=== PATIENT | female | born 1970 | race Caucasian/White ===

== ENCOUNTER 2016-09-23 06:00 | Outpatient (RCR) | payer OTHER ==
[2016-09-10 13:03] LABS: BASOPHILS % (AUTO) 1 % (0-10); EOSINOPHILS # (AUTO) 0.2 10^3/uL (0.0-0.3); EOSINOPHILS % (AUTO) 3 % (0-10); LYMPHOCYTES # (AUTO) 1.9 X 10^3 (1.0-4.0); LYMPHOCYTES % (AUTO) 28 % (12-44); MEAN CORPUSCULAR HEMOGLOBIN 30 PG (25-34); MEAN CORPUSCULAR HGB CONC 34 G/DL (32-36); MEAN CORPUSCULAR VOLUME 88 FL (80-99); MEAN PLATELET VOLUME 10.1 FL (7.4-10.4); MONOCYTES # (AUTO) 0.7 X 10^3 (0.0-1.0); MONOCYTES % (AUTO) 10 % (0-12); NEUTROPHILS % (AUTO) 59 % (42-75); PLATELET COUNT 269 10^3/uL (130-400); RED BLOOD COUNT 5.02 10^6/uL (4.35-5.85); RED CELL DISTRIBUTION WIDTH 13.3 % (10.0-14.5); WHITE BLOOD COUNT 6.9 10^3/uL (4.3-11.0)
[2016-09-10 13:25] LABS: ALBUMIN 4.2 G/DL (3.2-4.5); BILIRUBIN,TOTAL 0.7 MG/DL (0.1-1.0); CALCIUM 9.6 MG/DL (8.5-10.1); CREATININE SERUM 1.08 MG/DL (0.60-1.30); POTASSIUM 3.9 MMOL/L (3.6-5.0); TOTAL PROTEIN 7.5 G/DL (6.4-8.2)
[2016-09-10 13:31] LABS: ERYTHROCYTE SEDIMENTATION RATE 21 MM/HR (0-20)
== END 2016-12-09 | disposition home or self-care (01) ==
LOC: LAB 06:00
PROVIDERS: ATTEND Internal Medicine
DX: R19.7 Diarrhea, unspecified (principal)
CPT/HCPCS: 36415; 80053; 82274; 85025; 85652; 87045; 87046; 87177; 89055

== ENCOUNTER → 2016-10-14 | Outpatient (CLI) | payer OTHER ==
--- NOTE | 2016-10-14 15:42 | Diagnostic Imaging Report ---
PROCEDURE: CT abdomen without contrast. TECHNIQUE: Multiple contiguous axial images were obtained through the abdomen without the use of intravenous contrast. INDICATION: Abdominal pain. FINDINGS: The lung bases demonstrate no significant abnormality. There is diffuse hepatic steatosis. Cholecystectomy clips are noted. The spleen is not enlarged. The adrenals and the pancreas appear unremarkable for an unenhanced exam. The kidneys demonstrate no stone or hydronephrosis. The abdominal aorta is normal in caliber. No para-aortic significantly enlarged lymph node is seen. Nonspecific minimally enlarged mesenteric lymph nodes are noted. There is slight stranding in the mesentery also seen. The appendix visualized portion is normal. The tip of the appendix is projecting into the pelvis and is not seen on this exam. No fluid collection in the abdomen identified. There is moderate amount of fecal material seen in the right colon. The osseous structures demonstrate no significant abnormality. IMPRESSION: Minimal mesenteric taryn enlargement and stranding in the small bowel mesentery in the upper abdomen. This could relate to an underlying enteritis or mesenteritis. Dictated by: Dictated on workstation # [id number]
== END ==
LOC: RAD 15:09
PROVIDERS: ATTEND Nurse Practitioner Family
DX: R10.9 Unspecified abdominal pain (principal); R74.8 Abnormal levels of other serum enzymes
CPT/HCPCS: 74150

== ENCOUNTER → 2016-10-16 | Outpatient (CLI) | payer OTHER ==
[2016-10-16 07:40] LABS: MEAN PLATELET VOLUME 10.1 FL (7.4-10.4); RED BLOOD COUNT 4.6 10^6/uL (4.35-5.85); RED CELL DISTRIBUTION WIDTH 13.2 % (10.0-14.5); WHITE BLOOD COUNT 11.2 10^3/uL (4.3-11.0)
[2016-10-16 07:59] LABS: BILIRUBIN,TOTAL 0.5 MG/DL (0.1-1.0); CALCIUM 9.3 MG/DL (8.5-10.1); POTASSIUM 3.9 MMOL/L (3.6-5.0); TOTAL PROTEIN 7.2 G/DL (6.4-8.2)
== END ==
LOC: LAB 07:19
PROVIDERS: ATTEND Nurse Practitioner Family
DX: R10.9 Unspecified abdominal pain (principal); R74.8 Abnormal levels of other serum enzymes
CPT/HCPCS: 36415; 80053; 85027

== ENCOUNTER 2017-07-15 21:00 | Emergency (ER) | payer OTHER ==
[~2017-07-15] VITALS: Ht 172.7 cm; Wt 110.2 kg
[2017-07-15] MEDS ORDERED: RX-HYDROXYZINE PAMOATE 25 MG CAP #4 PO STA (21:22)
--- NOTE | 2017-07-15 21:25 | ED Integumentary General ---
General Chief Complaint: Bite-Animal/Human/Insect Stated Complaint: SPIDER BITE Nursing Triage Note: PT TO ED 5 W/ FOR C/O POSS SPIDER BITE TO LT SHOULDER. REPORTS WAS SEEN AT [facility] THIS AM FOR SAME C/O BUT DENIES IMPROVEMENT. History of Present Illness Time seen by provider: 21:20 Initial Comments Patient has small puncture site to the left anterior chest, proximal to the shoulder. The area was marked earlier today when she was evaluated at the [facility], the erythema has not enlarged. Trace central area of induration with no fluctuance noted. She has been using lidocaine patches, Benadryl, ice. With no improvement in the pruritus. She was started on Bactrim DS today. Timing/Duration: this morning Location: torso Possible Cause: insect bite Modifying Factors: improves with antihistamine, improves with other (Ice) Associated Symptoms: denies symptoms Allergies and Home Medications Allergies Coded Allergies: No Known Drug Allergies (Unverified , 11/18/15) Constitutional: no symptoms reported, see HPI Skin: see HPI, lesions, pruritus All Other Systems Reviewed Negative Unless Noted: Yes Past Ggqnvkd-Ldwzny-Iadyin Hx Patient Social History Alcohol Use: Denies Use Recreational Drug Use: No Smoking Status: Never a Smoker Recent Foreign Travel: No Contact w/Someone Who Travel: No Recent Infectious Disease Expo: No Recent Hopitalizations: No Physical Abuse: No Sexual Abuse: No Mistreated: No Fear: No Surgeries History of Surgeries: Yes Surgeries: Gallbladder Respiratory History of Respiratory Disorde: No Cardiovascular 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) Cardiac Disorders: Hypertension Genitourinary History of Genitourinary Disor: No Gastrointestinal History of Gastrointestinal Di: No Musculoskeletal History of Musculoskeletal Dis: No Endocrine History of Endocrine Disorders: No HEENT History of HEENT Disorders: No Cancer History of Cancer: No Psychosocial History of Psychiatric Problem: Yes Behavioral Health Disorders: Depression Suicide Risk Score: 0 Integumentary History of Skin or Integumenta: No Reviewed Nursing Assessment Reviewed/Agree w Nursing PMH: Yes Physical Exam Vital Signs Vital Sign - Last 12Hours 07/15/17 21:03 Temp 98.4 Pulse 88 Resp 20 B/P (MAP) 152/96 Pulse Ox 99 O2 Delivery Room Air Capillary Refill : Less Than 3 Seconds General Appearance: WD/WN, no apparent distress Neck: full range of motion, normal inspection, No lymphadenopathy (R), No lymphadenopathy (L) Cardiovascular: normal peripheral pulses, regular rate, rhythm Respiratory: chest non-tender, lungs clear Skin: normal color, warm/dry, other (small puncture to anterior chest, left side. Mild erythema. Marked pruritus. No fluctuance at Center, trace induration. ) Progress/Results/Core Measures Results/Orders My Orders Orders - SANA MG Hydroxyzine Oral (Vistaril Capsule) (07/15/17 21:30) Dexamethasone Injection (Decadron Inject (07/15/17 21:30) Rx-Hydroxyzine Pamoate (Rx-Vistaril) (07/15/17 21:22) Medications Given in ED Current Medications Medications Dose Ordered Sig/Kristan Route Start Time Stop Time Status Last Admin Dose Admin Dexamethasone Sodium Phosphate 10 mg ONCE ONCE IV 07/15/17 21:30 07/15/17 21:31 DC 07/15/17 21:31 10 MG Hydroxyzine Pamoate 25 mg ONCE ONCE PO 07/15/17 21:30 07/15/17 21:31 DC 07/15/17 21:30 25 MG Vital Signs/I&O Vital Sign - Last 12Hours 07/15/17 21:03 Temp 98.4 Pulse 88 Resp 20 B/P (MAP) 152/96 Pulse Ox 99 O2 Delivery Room Air Blood Pressure Mean: 114 Departure Impression Impression: Primary Impression: Insect bite Qualified Codes: W57.XXXA - Bitten or stung by nonvenomous insect and other nonvenomous arthropods, initial encounter Additional Impression: Pruritus Disposition: 01 HOME, SELF-CARE Condition: Improved Departure-Patient Inst. Decision time for Depature: 21:20 Referrals: CHARLIE PAZ DO (PCP/Family) Primary Care Physician Patient Instructions: Insect Bites and Stings (DC) Add. Discharge Instructions: Continue to use ice packs to right anterior chest 20 minutes every 2-3 hours. Try Aveeno soap, make 2 small paste and apply to area. Try apple cider vinegar with the mother, saturate cotton ball and apply to area of itching for 2-3 minutes. Use hydroxyzine for severe itching. Follow-up at the [facility] tomorrow if symptoms continue. Return to emergency department for worsening of symptoms. All discharge instructions reviewed with patient and/or family. Voiced understanding. Copy Copies To 1: TYRA ROMERO MD, AMY ARNP Jul 15, 2017 21:25
[2017-07-15] MEDS ORDERED: DEXAMETHASONE 10 MG/ML (DECADRON) 1 ML VIAL IV ONE (21:30)
[2017-07-15] MEDS ORDERED: hydrOXYzine (VISTARIL) 25 MG CAP PO ONE (21:30)
[2017-07-15 21:43] VITALS: BP 144/88
== END 2017-07-15 21:43 | disposition home or self-care (01) ==
LOC: EDUNIT# 21:00 → ER 21:01
DX: S40.262A Insect bite (nonvenomous) of left shoulder, initial encounter (principal); L29.9 Pruritus, unspecified; F32.9 Major depressive disorder, single episode, unspecified; I10 Essential (primary) hypertension; W57.XXXA Bitten or stung by nonvenomous insect and other nonvenomous arthropods, initial encounter
CPT/HCPCS: 99284

== ENCOUNTER 2018-09-13 14:47 | Emergency (ER) | payer OTHER ==
[~2018-09-13] VITALS: Ht 172.7 cm; Wt 108.9 kg
[2018-09-13] MEDS ORDERED: TRIA1CAP4 (15:07)
--- NOTE | 2018-09-13 15:13 | ED General ---
General Chief Complaint: General Problems/Pain Stated Complaint: WANTS TESTED FOR CARBON MONOXIDE Nursing Triage Note: ARRIVED VIA AMB TO TRIAGE ROOM. STATES SHE WOULD LIKE TESTED FOR CARBON MONOXIDE POISONING. STATES FOR OVER A WEEK SHE AND HER AND CHILD HAVE BEEN SICK WITH N/V/HEADACHE AND JUST NOT FEELING WELL. STATES WHEN THEY LEAVE THE HOME THEY FEEL BETTER. Nursing Sepsis Screen: No Definite Risk Source of Information: Patient Exam Limitations: No Limitations History of Present Illness Date Seen by Provider: Sep 13, 2018 Time Seen by Provider: 14:57 Initial Comments This 47-year-old woman presents to the emergency room with 7-10 days of symptoms that make her suspicious for carbon monoxide poisoning. She describes headache, confusion, muscle weakness, cramping, and just generally not feeling well. She states these symptoms improve after she or her family members leave the house. She reports her son has additionally had some nausea and diarrhea which is unusual for him. They recently had one of their propane heaters break. They have therefore been using a propane gas fireplace for heat. This fireplace is not vented to the outside. They do not have a working carbon monoxide detector at this time. She denies because her has had vasectomy. Allergies and Home Medications Allergies Coded Allergies: No Known Drug Allergies (Unverified , 11/18/15) Home Medications Cephalexin 500 Mg Capsule, 500 MG PO QID Prescribed by: DAVID WHITNEY on 09/13/18 1632 Ondansetron 4 Mg Tab.rapdis, 4 MG PO Q4H PRN for NAUSEA/VOMITING Prescribed by: DAVID WHITNEY on 09/13/18 1632 Patient Home Medication List Home Medication List Reviewed: Yes Review of Systems Review of Systems Constitutional: see HPI EENTM: no symptoms reported Respiratory: no symptoms reported Cardiovascular: no symptoms reported Gastrointestinal: see HPI Genitourinary: no symptoms reported Musculoskeletal: see HPI Skin: no symptoms reported Psychiatric/Neurological: See HPI Hematologic/Lymphatic: No Symptoms Reported Immunological/Allergic: no symptoms reported Past Rbrhrzl-Igpqlg-Bngfar Hx Patient Social History Alcohol Use: Denies Use Recreational Drug Use: No Smoking Status: Never a Smoker Recent Foreign Travel: No Contact w/Someone Who Travel: No Recent Infectious Disease Expo: No Recent Hopitalizations: No Past Medical History Surgeries: Yes Gallbladder Respiratory: No Cardiac: Yes (STRESS/CAFFIENE INDUCED BYGEMINY/TRIGEMINY) Hypertension Neurological: No : No Genitourinary: No Gastrointestinal: No Musculoskeletal: No Endocrine: No HEENT: No Cancer: No Psychosocial: Yes Depression Integumentary: No Physical Exam Vital Signs Vital Signs - First Documented 09/13/18 14:50 Temp 99.1 Pulse 104 Resp 16 B/P (MAP) 147/82 (103) Pulse Ox 100 O2 Delivery Room Air Capillary Refill : Less Than 3 Seconds Height, Weight, BMI Height: 5'8.00" Weight: 240lbs. oz. 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85 10^6/uL Hemoglobin 14.7 11.5-16.0 G/DL Hematocrit 44 35-52 % Mean Corpuscular Volume 88 80-99 FL Mean Corpuscular Hemoglobin 30 25-34 PG Mean Corpuscular Hemoglobin Concent 34 32-36 G/DL Red Cell Distribution Width 12.9 10.0-14.5 % Platelet Count 247 130-400 10^3/uL Mean Platelet Volume 10.1 7.4-10.4 FL Neutrophils (%) (Auto) 55 42-75 % Lymphocytes (%) (Auto) 30 12-44 % Monocytes (%) (Auto) 9 0-12 % Eosinophils (%) (Auto) 4 0-10 % Basophils (%) (Auto) 2 0-10 % Neutrophils # (Auto) 4.2 1.8-7.8 X 10^3 Lymphocytes # (Auto) 2.3 1.0-4.0 X 10^3 Monocytes # (Auto) 0.7 0.0-1.0 X 10^3 Eosinophils # (Auto) 0.3 0.0-0.3 10^3/uL Basophils # (Auto) 0.1 0.0-0.1 10^3/uL Carboxyhemoglobin 2.3 0.5-2.5 % Sodium Level 136 135-145 MMOL/L Potassium Level 3.5 L 3.6-5.0 MMOL/L Chloride Level 99 98-107 MMOL/L Carbon Dioxide Level 26 21-32 MMOL/L Anion Gap 11 5-14 MMOL/L Blood Urea Nitrogen 14 7-18 MG/DL Creatinine 1.26 0.60-1.30 MG/DL Estimat Glomerular Filtration Rate 46 BUN/Creatinine Ratio 11 Glucose Level 111 H 70-105 MG/DL Calcium Level 9.7 8.5-10.1 MG/DL Corrected Calcium 9.5 8.5-10.1 MG/DL Magnesium Level 2.3 1.8-2.4 MG/DL Total Bilirubin 0.4 0.1-1.0 MG/DL Aspartate Amino Transf (AST/SGOT) 34 5-34 U/L Alanine Aminotransferase (ALT/SGPT) 48 0-55 U/L Alkaline Phosphatase 57 40-136 U/L Total Protein 8.0 6.4-8.2 GM/DL Albumin 4.3 3.2-4.5 GM/DL TSH [place] Testing 3.52 0.35-4.94 UIU/ML Serum Test, Qualitative NEGATIVE NEGATIVE Urine Color YELLOW Urine Clarity SLIGHTLY CLOUDY Urine pH 6 5-9 Urine Specific Barnard 1.020 1.016-1.022 Urine Protein 1+ H NEGATIVE Urine Glucose (UA) NEGATIVE NEGATIVE Urine Ketones NEGATIVE NEGATIVE Urine Nitrite NEGATIVE NEGATIVE Urine Bilirubin NEGATIVE NEGATIVE Urine Urobilinogen NORMAL NORMAL MG/DL Urine Leukocyte Esterase 3+ H NEGATIVE Urine RBC (Auto) 4+ H NEGATIVE Urine RBC 5-10 H /HPF Urine WBC 25-50 H /HPF Urine Squamous Epithelial Cells >50 H /HPF Urine Renal Epithelial Cells 0-2 /HPF Urine Crystals NONE /LPF Urine Bacteria MODERATE H /HPF Urine Casts NONE /LPF Urine Mucus NEGATIVE /LPF Urine Culture Indicated YES My Orders Orders - DAVID JAMES MD Carboxyhemoglobin (09/13/18 14:54) Cbc With Automated Diff (09/13/18 15:05) Comprehensive Metabolic Panel (09/13/18 15:05) Magnesium (09/13/18 15:05) Thyroid Analyzer (09/13/18 15:05) Ua Culture If Indicated (09/13/18 15:05) Hcg,Qualitative Serum (09/13/18 15:05) Urine Culture (09/13/18 15:17) Vital Signs/I&O 09/13/18 14:50 Temp 99.1 Pulse 104 Resp 16 B/P (MAP) 147/82 (103) Pulse Ox 100 O2 Delivery Room Air Capillary Refill : Less Than 3 Seconds Blood Pressure Mean: 103 Progress Note : Progress Note Workup was unremarkable except you may suggested urinary tract infection. Keflex and Zofran were prescribed. Patient was advised to have her home checked for carbon monoxide. She is also advised to avoid using improperly vented combustion sources for heat. Departure Impression Primary Impression: Urinary tract infection Qualified Codes: N39.0 - Urinary tract infection, site not specified Additional Impressions: Fatigue Qualified Codes: R53.83 - Other fatigue Headache Qualified Codes: R51 - Headache Disposition: 01 HOME, SELF-CARE Condition: Improved Departure-Patient Inst. Decision time for Depature: 16:31 Referrals: CHARLIE PAZ DO (PCP/Family) Primary Care Physician Patient Instructions: Urinary Tract Infection, Adult (DC) Add. Discharge Instructions: Drink plenty of clear liquids. Complete your antibiotics as prescribed. Follow-up with your primary care provider if not improving over the next couple of days. Return to care if symptoms are worsening. You may use Zofran (ondansetron) as prescribed if nausea continues to be a problem. Review urine culture by contacting your primary care provider or the ER after 48 hours. All discharge instructions reviewed with patient and/or family. Voiced understanding. Scripts Ondansetron (Ondansetron Odt) 4 Mg Tab.rapdis 4 MG PO Q4H PRN for NAUSEA/VOMITING, #10 TAB Prov: DAVID JAMES MD 09/13/18 Cephalexin (Keflex) 500 Mg Capsule 500 MG PO QID, #20 CAP Prov: DAVID JAMES MD 09/13/18 Copy Copies To 1: CHARLIE PAZ JOSHUA T MD Sep 13, 2018 15:13
[2018-09-13 15:20] LABS: BASOPHILS # (AUTO) 0.1 10^3/uL (0.0-0.1); BASOPHILS % (AUTO) 2 % (0-10); EOSINOPHILS # (AUTO) 0.3 10^3/uL (0.0-0.3); EOSINOPHILS % (AUTO) 4 % (0-10); HEMATOCRIT 44 % (35-52); HEMOGLOBIN 14.7 G/DL (11.5-16.0); LYMPHOCYTES # (AUTO) 2.3 X 10^3 (1.0-4.0); LYMPHOCYTES % (AUTO) 30 % (12-44); MEAN CORPUSCULAR HEMOGLOBIN 30 PG (25-34); MEAN CORPUSCULAR HGB CONC 34 G/DL (32-36); MEAN CORPUSCULAR VOLUME 88 FL (80-99); MEAN PLATELET VOLUME 10.1 FL (7.4-10.4); MONOCYTES # (AUTO) 0.7 X 10^3 (0.0-1.0); MONOCYTES % (AUTO) 9 % (0-12); NEUTROPHILS # (AUTO) 4.2 X 10^3 (1.8-7.8); NEUTROPHILS % (AUTO) 55 % (42-75); PLATELET COUNT 247 10^3/uL (130-400); RED BLOOD COUNT 4.96 10^6/uL (4.35-5.85); RED CELL DISTRIBUTION WIDTH 12.9 % (10.0-14.5); WHITE BLOOD COUNT 7.6 10^3/uL (4.3-11.0)
[2018-09-13 15:24] LABS: BILIRUBIN,URINE NEGATIVE (NEGATIVE); CLARITY,URINE SLIGHTLY CLOUDY; COLOR,URINE YELLOW; GLUCOSE, URINE (UA) NEGATIVE (NEGATIVE); KETONES,URINE NEGATIVE (NEGATIVE); LEUKOCYTE ESTERASE ,URINE 3+ (NEGATIVE); NITRITE,URINE NEGATIVE (NEGATIVE); PH,URINE 6 (5-9); PROTEIN,URINE 1+ (NEGATIVE); UROBILINOGEN,URINE NORMAL (NORMAL)
[2018-09-13 15:34] LABS: BACTERIA,URINE MODERATE /HPF; RENAL EPITHELIAL CELLS,URINE 0-2 /HPF; SQUAMOUS EPITHELIAL CELL,UR >50 /HPF; WBC,URINE 25-50 /HPF
[2018-09-13 15:55] LABS: ALBUMIN 4.3 GM/DL (3.2-4.5); BILIRUBIN,TOTAL 0.4 MG/DL (0.1-1.0); CALCIUM 9.7 MG/DL (8.5-10.1); CREATININE SERUM 1.26 MG/DL (0.60-1.30); MAGNESIUM 2.3 MG/DL (1.8-2.4); POTASSIUM 3.5 MMOL/L (3.6-5.0)
[2018-09-13 16:15] LABS: TSH (THYROID ANALYZER) 3.52 UIU/ML (0.35-4.94)
[2018-09-13] MEDS ORDERED: ONDA4TAB11 PO (16:32)
[2018-09-13] MEDS ORDERED: CEPH-507 PO (16:32)
[2018-09-13 16:47] VITALS: BP 156/99
--- OUTSIDE RECORDS SUMMARY | 2018-09-14 07:44 | XMS REPORT | Continuity of Care Document ---
Author Author [facility] Organization [facility] Address Unknown Phone Unavailable Allergies Active Description Code Type Severity Reaction Onset Reported/Identified Relationship to Patient Clinical Status Yes No Known Drug Allergies [id number] Drug Allergy Unknown N/A 11/18/2015 Medications There is no data. Problems Date Dx Coded Attending Type Code Diagnosis Diagnosed By 06/20/2014 MARLA LINDSAY Ot 724.1 PAIN IN THORACIC SPINE 06/20/2014 MARLA LINDSAY Ot V57.1 PHYSICAL THERAPY NEC 02/13/2015 YOUNG PAZ L EDUCATION SUPERVISOR Ot 780.79 03/02/2015 TORO PAZRICIA L EDUCATION SUPERVISOR Ot 780.79 03/02/2015 JACKSON YOUNG L EDUCATION SUPERVISOR Ot 780.79 10/18/2015 PAZ, YOUNG L EDUCATION SUPERVISOR Ot 780.79 10/18/2015 PAZ, YOUNG L EDUCATION SUPERVISOR Ot 780.79 11/18/2015 PAZ, YOUNG L EDUCATION SUPERVISOR Ot 780.79 11/18/2015 PAZ, YOUNG L EDUCATION SUPERVISOR Ot 780.79 01/28/2016 JACKSON YOUNG L EDUCATION SUPERVISOR Ot R32 UNSPECIFIED URINARY INCONTINENCE 01/28/2016 TORO PAZRICIA L EDUCATION SUPERVISOR Ot Z12.31 ENCNTR SCREEN MAMMOGRAM FOR MALIGNANT NE 08/10/2016 TORO PAZRICIA L EDUCATION SUPERVISOR Ot 780.79 OTH MALAISE FATIGUE 08/10/2016 PAZ, YOUNG L EDUCATION SUPERVISOR Ot 780.79 OTH MALAISE FATIGUE 08/10/2016 TORO PAZRICIA L EDUCATION SUPERVISOR Ot R32 UNSPECIFIED URINARY INCONTINENCE 08/10/2016 TORO PAZRICIA L EDUCATION SUPERVISOR Ot Z12.31 ENCNTR SCREEN MAMMOGRAM FOR MALIGNANT NE 08/19/2016 TORO PAZRICIA L EDUCATION SUPERVISOR Ot 780.79 OTH MALAISE FATIGUE 08/19/2016 TORO PAZRICIA L EDUCATION SUPERVISOR Ot 780.79 OTH MALAISE FATIGUE 08/19/2016 PAZ, YOUNG L EDUCATION SUPERVISOR Ot R32 UNSPECIFIED URINARY INCONTINENCE 08/19/2016 TORO PAZRICIA L EDUCATION SUPERVISOR Ot Z12.31 ENCNTR SCREEN MAMMOGRAM FOR MALIGNANT NE 09/10/2016 PAZVIRGIL PERSAUDIA L EDUCATION SUPERVISOR Ot 780.79 OTH MALAISE FATIGUE 09/10/2016 PAZ, YOUNG L EDUCATION SUPERVISOR Ot 780.79 OTH MALAISE FATIGUE 09/10/2016 PAZVIRGIL PERSAUDIA L EDUCATION SUPERVISOR Ot R32 UNSPECIFIED URINARY INCONTINENCE 09/10/2016 PAZ, YOUNG L EDUCATION SUPERVISOR Ot Z12.31 ENCNTR SCREEN MAMMOGRAM FOR MALIGNANT NE 09/11/2016 CHARLIE PAZ DO Ot R19.7 DIARRHEA, UNSPECIFIED 09/24/2016 CHARLIE PAZ DO Ot K59.00 CONSTIPATION, UNSPECIFIED 10/14/2016 VIRGIL PAZIA L EDUCATION SUPERVISOR Ot 780.79 OTH MALAISE FATIGUE 10/14/2016 VIRGIL PAZIA L EDUCATION SUPERVISOR Ot 780.79 OTH MALAISE FATIGUE 10/14/2016 VIRGIL PAZIA L EDUCATION SUPERVISOR Ot R32 UNSPECIFIED URINARY INCONTINENCE 10/14/2016 VIRGIL PAZIA L EDUCATION SUPERVISOR Ot Z12.31 ENCNTR SCREEN MAMMOGRAM FOR MALIGNANT NE 10/14/2016 CHARLIE PAZ DO Ot R19.7 DIARRHEA, UNSPECIFIED 10/14/2016 CHARLIE PAZ DO Ot K59.00 CONSTIPATION, UNSPECIFIED 10/14/2016 VIRGIL PAZIA L EDUCATION SUPERVISOR Ot 780.79 OTH MALAISE FATIGUE 10/14/2016 TORO PAZRICIA L EDUCATION SUPERVISOR Ot 780.79 OTH MALAISE FATIGUE 10/14/2016 TORO PAZRICIA L EDUCATION SUPERVISOR Ot R32 UNSPECIFIED URINARY INCONTINENCE 10/14/2016 TORO PAZRICIA L EDUCATION SUPERVISOR Ot Z12.31 ENCNTR SCREEN MAMMOGRAM FOR MALIGNANT NE 10/14/2016 CHARLIE PAZ DO Ot R19.7 DIARRHEA, UNSPECIFIED 10/14/2016 CHARLIE PAZ DO Ot K59.00 CONSTIPATION, UNSPECIFIED 10/15/2016 VIRGIL PAZIA Tab EDUCATION SUPERVISOR Ot R10.9 UNSPECIFIED ABDOMINAL PAIN 10/15/2016 YOUNG PAZ EDUCATION SUPERVISOR Ot R74.8 ABNORMAL LEVELS OF OTHER SERUM ENZYMES 10/15/2016 TORO PAZRICIA L EDUCATION SUPERVISOR Ot R10.9 UNSPECIFIED ABDOMINAL PAIN 10/15/2016 TORO PAZRICIA Tab EDUCATION SUPERVISOR Ot R74.8 ABNORMAL LEVELS OF OTHER SERUM ENZYMES 11/10/2016 YOUNG PAZ L EDUCATION SUPERVISOR Ot R10.9 UNSPECIFIED ABDOMINAL PAIN 11/10/2016 VIRGIL PAZIA L EDUCATION SUPERVISOR Ot R74.8 ABNORMAL LEVELS OF OTHER SERUM ENZYMES 12/09/2016 CHARLIE PAZ DO Ot R19.7 DIARRHEA, UNSPECIFIED 01/18/2017 YOUNG PAZ L EDUCATION SUPERVISOR Ot 780.79 OTH MALAISE FATIGUE 01/18/2017 TORO PAZRICIA L EDUCATION SUPERVISOR Ot 780.79 OTH MALAISE FATIGUE 01/18/2017 VIRGIL PAZIA L EDUCATION SUPERVISOR Ot R32 UNSPECIFIED URINARY INCONTINENCE 01/18/2017 VIRGIL PAZIA L EDUCATION SUPERVISOR Ot Z12.31 ENCNTR SCREEN MAMMOGRAM FOR MALIGNANT NE 01/18/2017 CHARLIE PAZ DO Ot K59.00 CONSTIPATION, UNSPECIFIED 01/18/2017 YOUNG PAZ EDUCATION SUPERVISOR Ot R10.9 UNSPECIFIED ABDOMINAL PAIN 01/18/2017 YOUNG PAZ EDUCATION SUPERVISOR Ot R74.8 ABNORMAL LEVELS OF OTHER SERUM ENZYMES 01/18/2017 YOUNG PAZ L EDUCATION SUPERVISOR Ot R10.9 UNSPECIFIED ABDOMINAL PAIN 01/18/2017 VIRGIL PAZIA L EDUCATION SUPERVISOR Ot R74.8 ABNORMAL LEVELS OF OTHER SERUM ENZYMES 01/18/2017 CHARLIE PAZ DO Ot R19.7 DIARRHEA, UNSPECIFIED 07/15/2017 VIRGIL PAZIA L EDUCATION SUPERVISOR Ot 780.79 OTH MALAISE FATIGUE 07/15/2017 VIRGIL PAZIA L EDUCATION SUPERVISOR Ot 780.79 OTH MALAISE FATIGUE 07/15/2017 VIRGIL PAZIA L EDUCATION SUPERVISOR Ot R32 UNSPECIFIED URINARY INCONTINENCE 07/15/2017 VIRGIL PAZIA L EDUCATION SUPERVISOR Ot Z12.31 ENCNTR SCREEN MAMMOGRAM FOR MALIGNANT NE 07/15/2017 CHARLIE PAZ DO Ot K59.00 CONSTIPATION, UNSPECIFIED 07/15/2017 YOUNG APZ EDUCATION SUPERVISOR Ot R10.9 UNSPECIFIED ABDOMINAL PAIN 07/15/2017 YOUNG PAZ EDUCATION SUPERVISOR Ot R74.8 ABNORMAL LEVELS OF OTHER SERUM ENZYMES 07/15/2017 YOUNG PAZ EDUCATION SUPERVISOR Ot R10.9 UNSPECIFIED ABDOMINAL PAIN 07/15/2017 YOUNG PAZ EDUCATION SUPERVISOR Ot R74.8 ABNORMAL LEVELS OF OTHER SERUM ENZYMES 07/15/2017 CHARLIE PAZ DO Ot R19.7 DIARRHEA, UNSPECIFIED 07/15/2017 HARITHA, SANA EDUCATION SUPERVISOR Ot F32.9 MAJOR DEPRESSIVE DISORDER, SINGLE EPISOD 07/15/2017 HARITHA, SANA EDUCATION SUPERVISOR Ot I10 ESSENTIAL (PRIMARY) HYPERTENSION 07/15/2017 HARITHA, SANA EDUCATION SUPERVISOR Ot L29.9 PRURITUS, UNSPECIFIED 07/15/2017 HARITHA, SANA EDUCATION SUPERVISOR Ot S40.262A INSECT BITE (NONVENOMOUS) OF LEFT SHOULD 07/15/2017 HARITHA, SANA EDUCATION SUPERVISOR Ot W57.XXXA BIT/STUNG BY NONVENOM INSECT OTH NONVE 07/20/2017 HARITHA, SANA EDUCATION SUPERVISOR Ot F32.9 MAJOR DEPRESSIVE DISORDER, SINGLE EPISOD 07/20/2017 HARITHA, SANA EDUCATION SUPERVISOR Ot I10 ESSENTIAL (PRIMARY) HYPERTENSION 07/20/2017 HARITHA, SANA EDUCATION SUPERVISOR Ot L29.9 PRURITUS, UNSPECIFIED 07/20/2017 HARITHA, SANA EDUCATION SUPERVISOR Ot S40.262A INSECT BITE (NONVENOMOUS) OF LEFT SHOULD 07/20/2017 HARITHA, SANA EDUCATION SUPERVISOR Ot W57.XXXA BIT/STUNG BY NONVENOM INSECT OTH NONVE 09/06/2018 YOUNG PAZ EDUCATION SUPERVISOR Ot 780.79 OTH MALAISE FATIGUE 09/06/2018 YOUNG PAZ EDUCATION SUPERVISOR Ot 780.79 OTH MALAISE FATIGUE 09/06/2018 YOUNG PAZ EDUCATION SUPERVISOR Ot R32 UNSPECIFIED URINARY INCONTINENCE 09/06/2018 YOUNG PAZ EDUCATION SUPERVISOR Ot Z12.31 ENCNTR SCREEN MAMMOGRAM FOR MALIGNANT NE 09/06/2018 CHARLIE PAZ DO Ot K59.00 CONSTIPATION, UNSPECIFIED 09/06/2018 YOUNG PAZ EDUCATION SUPERVISOR Ot R10.9 UNSPECIFIED ABDOMINAL PAIN 09/06/2018 YOUNG PAZ EDUCATION SUPERVISOR Ot R74.8 ABNORMAL LEVELS OF OTHER SERUM ENZYMES 09/06/2018 YOUNG PAZ Ot R10.9 UNSPECIFIED ABDOMINAL PAIN 09/06/2018 YOUNG PAZ EDUCATION SUPERVISOR Ot R74.8 ABNORMAL LEVELS OF OTHER SERUM ENZYMES 09/06/2018 CHARLIE PAZ DO Ot R19.7 DIARRHEA, UNSPECIFIED Procedures There is no data. Results Test Result Range Complete blood count (CBC) with automated white blood cell (WBC) differential - 09/10/16 12:57 Blood leukocytes automated count (number/volume) 6.9 10*3/uL 4.3-11.0 Blood erythrocytes automated count (number/volume) 5.02 10*6/uL 4.35-5.85 Venous blood hemoglobin measurement (mass/volume) 14.9 g/dL 11.5-16.0 Blood hematocrit (volume fraction) 44 % 35-52 Automated erythrocyte mean corpuscular volume 88 [foz_us] 80-99 Automated erythrocyte mean corpuscular hemoglobin (mass per erythrocyte) 30 pg 25-34 Automated erythrocyte mean corpuscular hemoglobin concentration measurement ( mass/volume) 34 g/dL 32-36 Automated erythrocyte distribution width ratio 13.3 % 10.0-14.5 Automated blood platelet count (count/volume) 269 10*3/uL 130-400 Automated blood platelet mean volume measurement 10.1 [foz_us] 7.4-10.4 Automated blood neutrophils/100 leukocytes 59 % 42-75 Automated blood lymphocytes/100 leukocytes 28 % 12-44 Blood monocytes/100 leukocytes 10 % 0-12 Automated blood eosinophils/100 leukocytes 3 % 0-10 Automated blood basophils/100 leukocytes 1 % 0-10 Blood neutrophils automated count (number/volume) 4.0 10*3 1.8-7.8 Blood lymphocytes automated count (number/volume) 1.9 10*3 1.0-4.0 Blood monocytes automated count (number/volume) 0.7 10*3 0.0-1.0 Automated eosinophil count 0.2 10*3/uL 0.0-0.3 Automated blood basophil count (count/volume) 0.0 10*3/uL 0.0-0.1 Comprehensive metabolic panel - 09/10/16 12:57 Serum or plasma sodium measurement (moles/volume) 137 mmol/L 135-145 Serum or plasma potassium measurement (moles/volume) 3.9 mmol/L 3.6-5.0 Serum or plasma chloride measurement (moles/volume) 102 mmol/L 98-107 Carbon dioxide 25 mmol/L 21-32 Serum or plasma anion gap determination (moles/volume) 10 mmol/L 5-14 Serum or plasma urea nitrogen measurement (mass/volume) 12 mg/dL 7-18 Serum or plasma creatinine measurement (mass/volume) 1.08 mg/dL 0.60-1.30 Serum or plasma urea nitrogen/creatinine mass ratio 11 NRG Serum or plasma creatinine measurement with calculation of estimated glomerular filtration rate 55 NRG Serum or plasma glucose measurement (mass/volume) 98 mg/dL 70-105 Serum or plasma calcium measurement (mass/volume) 9.6 mg/dL 8.5-10.1 Serum or plasma total bilirubin measurement (mass/volume) 0.7 mg/dL 0.1-1.0 Serum or plasma alkaline phosphatase measurement (enzymatic activity/volume) 51 U/L 40-136 Serum or plasma aspartate aminotransferase measurement (enzymatic activity/ volume) 35 U/L 5-34 Serum or plasma alanine aminotransferase measurement (enzymatic activity/volume ) 50 U/L 0-55 Serum or plasma protein measurement (mass/volume) 7.5 g/dL 6.4-8.2 Serum or plasma albumin measurement (mass/volume) 4.2 g/dL 3.2-4.5 Erythrocyte sedimentation rate by westergren method - 09/10/16 12:57 Erythrocyte sedimentation rate by westergren method 21 mm 0-20 Stool occult blood screen - 09/10/16 16:30 Stool gastrointestinal hemoglobin detection NEGATIVE NEGATIVE Stool leukocytes detection by light microscopy - 09/10/16 16:30 FECAL WBC RESULTS FEW WBC'S OBSERVED ON DIRECT SMEAR NRG FECAL NOTE FECAL LEUKOCYTES MAY BE INTERMITTENTLY PRESENT OR NRG FECAL NOTE UNEVENLY DISTRIBUTED IN STOOL SPECIMENS, AND WBC NRG FECAL NOTE MORPHOLOGY DEGRADES DURING TRANSPORT NRG FECAL NOTE NOTE: NRG Stool bacteria identification by culture - 09/10/16 16:30 Stool bacteria identification by culture N2 NRG Ova and parasites - 09/10/16 16:30 DATE OF REF LAB REPORT 09/17/16 NRG OTP NEGATIVE RESULT PARASITES NOT FOUND NRG Ova and parasites - 09/23/16 06:00 DATE OF REF LAB REPORT 10/06/16 15:00 NRG OTP NEGATIVE RESULT PARASITES NOT FOUND NRG Automated blood complete blood count (hemogram) panel - 10/16/16 07:35 Blood leukocytes automated count (number/volume) 11.2 10*3/uL 4.3-11.0 Blood erythrocytes automated count (number/volume) 4.60 10*6/uL 4.35-5.85 Venous blood hemoglobin measurement (mass/volume) 13.7 g/dL 11.5-16.0 Blood hematocrit (volume fraction) 41 % 35-52 Automated erythrocyte mean corpuscular volume 89 [foz_us] 80-99 Automated erythrocyte mean corpuscular hemoglobin (mass per erythrocyte) 30 pg 25-34 Automated erythrocyte mean corpuscular hemoglobin concentration measurement ( mass/volume) 34 g/dL 32-36 Automated erythrocyte distribution width ratio 13.2 % 10.0-14.5 Automated blood platelet count (count/volume) 233 10*3/uL 130-400 Automated blood platelet mean volume measurement 10.1 [foz_us] 7.4-10.4 Comprehensive metabolic panel - 10/16/16 07:35 Serum or plasma sodium measurement (moles/volume) 136 mmol/L 135-145 Serum or plasma potassium measurement (moles/volume) 3.9 mmol/L 3.6-5.0 Serum or plasma chloride measurement (moles/volume) 101 mmol/L 98-107 Carbon dioxide 25 mmol/L 21-32 Serum or plasma anion gap determination (moles/volume) 10 mmol/L 5-14 Serum or plasma urea nitrogen measurement (mass/volume) 14 mg/dL 7-18 Serum or plasma creatinine measurement (mass/volume) 1.00 mg/dL 0.60-1.30 Serum or plasma urea nitrogen/creatinine mass ratio 14 NRG Serum or plasma creatinine measurement with calculation of estimated glomerular filtration rate 60 NRG Serum or plasma glucose measurement (mass/volume) 113 mg/dL 70-105 Serum or plasma calcium measurement (mass/volume) 9.3 mg/dL 8.5-10.1 Serum or plasma total bilirubin measurement (mass/volume) 0.5 mg/dL 0.1-1.0 Serum or plasma alkaline phosphatase measurement (enzymatic activity/volume) 51 U/L 40-136 Serum or plasma aspartate aminotransferase measurement (enzymatic activity/ volume) 21 U/L 5-34 Serum or plasma alanine aminotransferase measurement (enzymatic activity/volume ) 32 U/L 0-55 Serum or plasma protein measurement (mass/volume) 7.2 g/dL 6.4-8.2 Serum or plasma albumin measurement (mass/volume) 4.0 g/dL 3.2-4.5 Complete blood count (CBC) with automated white blood cell (WBC) differential - 09/13/18 15:14 Blood leukocytes automated count (number/volume) 7.6 10*3/uL 4.3-11.0 Blood erythrocytes automated count (number/volume) 4.96 10*6/uL 4.35-5.85 Venous blood hemoglobin measurement (mass/volume) 14.7 g/dL 11.5-16.0 Blood hematocrit (volume fraction) 44 % 35-52 Automated erythrocyte mean corpuscular volume 88 [foz_us] 80-99 Automated erythrocyte mean corpuscular hemoglobin (mass per erythrocyte) 30 pg 25-34 Automated erythrocyte mean corpuscular hemoglobin concentration measurement ( mass/volume) 34 g/dL 32-36 Automated erythrocyte distribution width ratio 12.9 % 10.0-14.5 Automated blood platelet count (count/volume) 247 10*3/uL 130-400 Automated blood platelet mean volume measurement 10.1 [foz_us] 7.4-10.4 Automated blood neutrophils/100 leukocytes 55 % 42-75 Automated blood lymphocytes/100 leukocytes 30 % 12-44 Blood monocytes/100 leukocytes 9 % 0-12 Automated blood eosinophils/100 leukocytes 4 % 0-10 Automated blood basophils/100 leukocytes 2 % 0-10 Blood neutrophils automated count (number/volume) 4.2 10*3 1.8-7.8 Blood lymphocytes automated count (number/volume) 2.3 10*3 1.0-4.0 Blood monocytes automated count (number/volume) 0.7 10*3 0.0-1.0 Automated eosinophil count 0.3 10*3/uL 0.0-0.3 Automated blood basophil count (count/volume) 0.1 10*3/uL 0.0-0.1 Blood carboxyhemoglobin/total hemoglobin - 09/13/18 15:14 Blood carboxyhemoglobin/total hemoglobin 2.3 % 0.5-2.5 Comprehensive metabolic panel - 09/13/18 15:14 Serum or plasma sodium measurement (moles/volume) 136 mmol/L 135-145 Serum or plasma potassium measurement (moles/volume) 3.5 mmol/L 3.6-5.0 Serum or plasma chloride measurement (moles/volume) 99 mmol/L 98-107 Carbon dioxide 26 mmol/L 21-32 Serum or plasma anion gap determination (moles/volume) 11 mmol/L 5-14 Serum or plasma urea nitrogen measurement (mass/volume) 14 mg/dL 7-18 Serum or plasma creatinine measurement (mass/volume) 1.26 mg/dL 0.60-1.30 Serum or plasma urea nitrogen/creatinine mass ratio 11 NRG Serum or plasma creatinine measurement with calculation of estimated glomerular filtration rate 46 NRG Serum or plasma glucose measurement (mass/volume) 111 mg/dL 70-105 Serum or plasma calcium measurement (mass/volume) 9.7 mg/dL 8.5-10.1 Serum or plasma total bilirubin measurement (mass/volume) 0.4 mg/dL 0.1-1.0 Serum or plasma alkaline phosphatase measurement (enzymatic activity/volume) 57 U/L 40-136 Serum or plasma aspartate aminotransferase measurement (enzymatic activity/ volume) 34 U/L 5-34 Serum or plasma alanine aminotransferase measurement (enzymatic activity/volume ) 48 U/L 0-55 Serum or plasma protein measurement (mass/volume) 8.0 g/dL 6.4-8.2 Serum or plasma albumin measurement (mass/volume) 4.3 g/dL 3.2-4.5 CALCIUM CORRECTED 9.5 mg/dL 8.5-10.1 Magnesium - 09/13/18 15:14 Magnesium 2.3 mg/dL 1.8-2.4 Serum or plasma choriogonadotropin ( test) detection - 09/13/18 15:14 Serum or plasma choriogonadotropin ( test) detection NEGATIVE NEGATIVE Serum or plasma thyrotropin measurement by detection limit <=0.05 miu/l (units/ volume) - 09/13/18 15:14 Serum or plasma thyrotropin measurement by detection limit <=0.05 miu/l (units/ volume) 3.52 u[iU]/mL 0.35-4.94 Complete urinalysis with reflex to culture - 09/13/18 15:17 Urine color determination YELLOW NRG Urine clarity determination SLIGHTLY CLOUDY NRG Urine pH measurement by test strip 6 5-9 Specific gravity of urine by test strip 1.020 1.016- 1.022 Urine protein assay by test strip, semi-quantitative 1+ NEGATIVE Urine glucose detection by automated test strip NEGATIVE NEGATIVE Erythrocytes detection in urine sediment by light microscopy 4+ NEGATIVE Urine ketones detection by automated test strip NEGATIVE NEGATIVE Urine nitrite detection by test strip NEGATIVE NEGATIVE Urine total bilirubin detection by test strip NEGATIVE NEGATIVE Urine urobilinogen measurement by automated test strip (mass/volume) NORMAL NORMAL Urine leukocyte esterase detection by dipstick 3+ NEGATIVE Automated urine sediment erythrocyte count by microscopy (number/high power field) [HPF] NRG Automated urine sediment leukocyte count by microscopy (number/high power field ) [HPF] NRG Bacteria detection in urine sediment by light microscopy MODERATE NRG Squamous epithelial cells detection in urine sediment by light microscopy >50 NRG Crystals detection in urine sediment by light microscopy NONE NRG Casts detection in urine sediment by light microscopy NONE NRG Mucus detection in urine sediment by light microscopy NEGATIVE NRG Complete urinalysis with reflex to culture YES NRG Renal epithelial cells detection in urine sediment by light microscopy 0-2 NRG Encounters ACCT No. Visit Date/Time Discharge Status Pt. Type Provider Facility Loc./Unit Complaint [id number] 09/13/2018 14:50:00 09/13/2018 16:47:00 DIS Emergency JACOB PICKERING, DAVID Salguero [facility] ER WANTS TESTED FOR CARBON MONOXIDE [id number] 07/15/2017 21:01:00 07/15/2017 21:43:00 DIS Emergency SANA MGP [facility] ER SPIDER BITE [id number] 12/10/2016 00:09:00 12/10/2016 23:59:59 CLS Preadmit CHARLIE PAZ DO [facility] LAB DIARRHEA [id number] 09/23/2016 06:00:00 12/09/2016 00:01:00 DIS Outpatient CHARLIE PAZ DO [facility] LAB DIARRHEA [id number] 10/16/2016 07:19:00 10/16/2016 23:59:59 CLS Outpatient PAZ YOUNG L EDUCATION SUPERVISOR [facility] LAB ABD PAIN,HIGH LIPASE [id number] 10/14/2016 15:09:00 10/14/2016 23:59:59 CLS Outpatient PAZ YOUNG L EDUCATION SUPERVISOR [facility] RAD ABD PAIN,HIGH LIPASE [id number] 09/23/2016 11:03:00 09/23/2016 23:59:59 CLS Outpatient PAZCHARLIE HAYDEN DO [facility] RAD ABD PAIN [id number] 11/18/2015 15:10:00 11/18/2015 23:59:59 CLS Outpatient PAZYOUNG HAYDEN EDUCATION SUPERVISOR [facility] RAD SCREENING, INCONTINENCE [id number] 02/11/2015 10:22:00 02/11/2015 23:59:59 CLS Outpatient PAZVIRGIL HAYDENIA L EDUCATION SUPERVISOR [facility] LAB FATIGUE [id number] 02/08/2015 09:11:00 02/08/2015 23:59:59 CLS Outpatient PAZ YOUNG L EDUCATION SUPERVISOR [facility] LAB FATIGUE [id number] 05/29/2014 15:05:00 06/20/2014 16:46:00 DIS Outpatient MARLA LINDSAY [facility] REHAB THORACIC PAIN [id number] 04/11/2014 11:47:00 04/11/2014 23:59:59 CLS Outpatient [id number] 05/19/2013 13:00:00 05/19/2013 23:59:59 CLS Outpatient
== END 2018-09-13 16:47 | disposition home or self-care (01) ==
LOC: EDUNIT# 14:47 → ER 14:50
DX: N39.0 Urinary tract infection, site not specified (principal); R53.83 Other fatigue; R51 Headache; I10 Essential (primary) hypertension; F32.9 Major depressive disorder, single episode, unspecified
CPT/HCPCS: 36415; 80053; 81000; 82375; 83735; 84443; 84703; 85025; 87088

== ENCOUNTER → 2020-04-01 | Outpatient (CLI) | payer OTHER ==
[~2020-04-01] MED LIST: CEPH-507 PO; ONDA4TAB11 PO; TRIA1CAP4
--- NOTE | 2020-04-01 09:10 | Diagnostic Imaging Report ---
INDICATION: Routine screening. Comparison is made prior mammogram from 11/18/2015. 2-D and 3-D bilateral screening mammography was performed with CAD. Both breasts are heterogeneously dense, limiting the sensitivity of mammography. A spiculated density has developed in the upper and outer aspect of the right breast posterior depth. No other masses are seen. No suspicious microcalcifications are identified. Axillae are unremarkable. IMPRESSION: BI-RADS 0 Development of spiculated density upper outer right breast posterior depth. Additional views and ultrasound are recommended for further evaluation. ACR BI-RADS Category 0: Incomplete. (Needs additional imaging evaluation). Result letter will be mailed to the patient. Note: At least 10% of breast cancer is not imaged by mammography. Dictated by: Dictated on workstation # [id number]
== END ==
LOC: RAD 07:55
PROVIDERS: ATTEND Nurse Practitioner Family
DX: Z12.31 Encounter for screening mammogram for malignant neoplasm of breast (principal)
CPT/HCPCS: 77063; 77067

== ENCOUNTER → 2020-05-24 | Outpatient (CLI) | payer OTHER ==
--- NOTE | 2020-05-24 14:54 | Diagnostic Imaging Report ---
INDICATION: Spiculated right breast density. Patient presents for additional views. Correlation is made with the screening study from 04/01/2020. Unilateral right 2-D and 3-D diagnostic mammography was performed. This includes spot compression CC as well as spot compression ML and conventional 90 degree lateral views. Additional views show persistent spiculated density in the upper outer right breast posterior depth approximately 12 cm from the nipple, concerning for small breast neoplasm. No suspicious calcifications are seen. IMPRESSION: BI-RADS 0 Persistent spiculated masslike density in the upper-outer right breast posterior depth. Further evaluation with ultrasound is recommended and will be performed today. ACR BI-RADS Category 0: Incomplete. (Needs additional imaging evaluation). Result letter will be mailed to the patient. Note: At least 10% of breast cancer is not imaged by mammography. Dictated by: Dictated on workstation # [id number]
--- NOTE | 2020-05-24 18:08 | Diagnostic Imaging Report ---
INDICATION: Abnormal mammogram. COMPARISON: Correlation is made with screening mammogram from 04/01/2020 and diagnostic mammogram from 05/24/2020. EXAMINATION: Sonographic interrogation of the upper outer right breast was performed. FINDINGS: There is a hypoechoic, irregular solid appearing mass at the 10:00 location of the right breast, 10 cm from the nipple. The mass measures approximately 1.4 x 2.1 x 0.8 cm. There appears to be posterior acoustic shadowing. This is posteriorly located near the chest wall. No definite internal vascularity is present. No other masses are detected. The right axilla is unremarkable. IMPRESSION: Irregular hypoechoic solid-appearing mass at the 10:00 location of right breast, 10 cm from the nipple. This likely accounts for the density noted mammographically. This is concerning for a small breast neoplasm. Tissue sampling is recommended. This would be amenable to ultrasound-guided core biopsy. Dictated by: Dictated on workstation # [id number]
== END ==
LOC: RAD 14:15
PROVIDERS: ATTEND Nurse Practitioner Family
DX: N63.11 Unspecified lump in the right breast, upper outer quadrant (principal)
CPT/HCPCS: 76642; 77065; G0279

== ENCOUNTER → 2020-05-29 | Outpatient (CLI) | payer OTHER ==
[~2020-05-29] VITALS: Ht 172.7 cm; Wt 106.8 kg
[~2020-05-29] MED LIST changes: +LIDOCAINE 1% INJ 20 ML 20 ML VIAL INJ ONE; +LIDOCAINE 1% INJ 20 ML 20 ML VIAL ONE
--- NOTE | 2020-05-29 10:49 | Diagnostic Imaging Report ---
Indication: Right breast mass. Patient presents for ultrasound guided biopsy. Patient brought to the ultrasound suite and placed on table in the supine position. Ultrasound imaging of the right breast was performed to evaluate appropriate entry site. Right breast was then prepped and draped in usual sterile fashion. Small amount of 1% lidocaine was utilized for local anesthesia. A total of 5 core biopsies were obtained of the hypoechoic solid appearing mass at the 10:00 location of the right breast, 10 cm from the nipple, utilizing a 14-gauge achieve needle. A marker clip was then deployed. Hemostasis was obtained using manual compression. Patient tolerated procedure well and was sent for post procedure mammogram in satisfactory condition. IMPRESSION: Successful ultrasound-guided core biopsy of the hypoechoic mass 10:00 location of the right breast, 10 cm from the nipple. Pathology results are currently pending. Dictated by: Dictated on workstation # [id number]
--- NOTE | 2020-05-29 13:28 | Diagnostic Imaging Report ---
INDICATION: Right breast mass, status post ultrasound-guided core biopsy. FINDINGS: A unilateral right 2D CC and ML mammogram was performed status post right breast ultrasound guided biopsy. Images demonstrate a marker clip posterior to the spiculated mass in the upper outer right breast. IMPRESSION: The clip is identified adjacent to the posterior aspect of the recently biopsied mass. Dictated by: Dictated on workstation # [id number]
== END ==
LOC: RAD 08:46
PROVIDERS: ATTEND Internal Medicine
DX: C50.411 Malignant neoplasm of upper-outer quadrant of right female breast (principal)
CPT/HCPCS: 19083; 77065; A4648; G0279

== ENCOUNTER → 2020-06-11 | Outpatient (CLI) | payer OTHER ==
[~2020-06-11] MED LIST changes: +CATHETER FLUSH 10 ML SYR IV PRN; +HOLD METFORMIN - RECEIVED CONTRAST 20 ML VIAL IV SCH; +IOHEXOL 350 MG/ML 100 ML (OMNIPAQUE 350) VIAL IV ONE; -LIDOCAINE 1% INJ 20 ML 20 ML VIAL INJ ONE; -LIDOCAINE 1% INJ 20 ML 20 ML VIAL ONE; +NS 100 ML (IVPB) BAG IV ONE
--- NOTE | 2020-06-11 14:53 | Diagnostic Imaging Report ---
PROCEDURE: CT chest with contrast, CT abdomen and pelvis with and without contrast. TECHNIQUE: Pre and post intravenous contrast axial imaging of the abdomen and pelvis and post contrast axial imaging of the chest were performed. Auto Exposure Controls were utilized during the CT exam to meet ALARA standards for radiation dose reduction. INDICATION: Right-sided breast cancer. FINDINGS: CT CHEST: Irregular density in the upper-outer right breast is noted, corresponding to patient's known breast neoplasm. No axillary lymphadenopathy is identified. No internal mammary lymphadenopathy is detected. No pathologically enlarged lymph nodes in the mediastinum or anali are identified. There is no pericardial or pleural fluid detected. No pulmonary infiltrates, nodules, or masses are seen. There is a moderate-sized hiatal hernia. IMPRESSION: 1. Right breast mass. 2. No evidence of thoracic lymphadenopathy or pulmonary metastatic disease. CT ABDOMEN AND PELVIS: No discrete liver mass is detected. The gallbladder is surgically absent. No biliary ductal dilatation is seen. The pancreas and spleen are unremarkable. No adrenal mass is detected. Kidneys are unremarkable. Aorta is nonaneurysmal. No central retroperitoneal or mesenteric lymphadenopathy is seen. Small and large bowel loops are normal in caliber. There is no free fluid or fluid collection in the abdomen or pelvis. Uterus and bladder are unremarkable. No pelvic lymphadenopathy is seen. Bony structures are unremarkable. IMPRESSION: Unremarkable CT of the abdomen and pelvis. There is no evidence of abdominal or pelvic lymphadenopathy or metastatic disease. Dictated by: Dictated on workstation # [id number]
--- NOTE | 2020-06-11 16:50 | Diagnostic Imaging Report ---
INDICATION: Right breast carcinoma. The patient was administered 26.8 mCi technetium 99m MDP intravenously and whole-body imaging was performed after a 3 hour delay. COMPARISON: No prior studies are available for comparison. There is normal uptake of activity by the axial and appendicular skeleton. There is uptake by the kidneys with excretion into the urinary bladder. No suspicious foci of tracer accumulation is seen to suggest osseous metastatic disease. IMPRESSION: No scintigraphic evidence of osseous metastatic disease. Dictated by: Dictated on workstation # [id number]
== END ==
LOC: CARD 12:00
PROVIDERS: ATTEND Internal Medicine Hematology & Oncology
DX: N63.10 Unspecified lump in the right breast, unspecified quadrant (principal); Z85.3 Personal history of malignant neoplasm of breast
CPT/HCPCS: 71260; 74178; 78306; A9503

== ENCOUNTER → 2020-07-03 | Outpatient (CLI) | payer OTHER ==
[~2020-07-03] MED LIST changes: -CATHETER FLUSH 10 ML SYR IV PRN; -HOLD METFORMIN - RECEIVED CONTRAST 20 ML VIAL IV SCH; -IOHEXOL 350 MG/ML 100 ML (OMNIPAQUE 350) VIAL IV ONE; -NS 100 ML (IVPB) BAG IV ONE
== END ==
LOC: CARD 12:49
PROVIDERS: ATTEND Internal Medicine Hematology & Oncology
DX: Z51.11 Encounter for antineoplastic chemotherapy (principal); C50.919 Malignant neoplasm of unspecified site of unspecified female breast; R00.2 Palpitations
CPT/HCPCS: 93306

== ENCOUNTER 2020-07-10 05:40 | Outpatient (RCR) | payer OTHER ==
[2020-08-19] MEDS ORDERED: MTP25TSR PO (13:23)
== END 2020-10-07 ==
LOC: PREOP 05:40
PROVIDERS: ATTEND Surgery
DX: Z01.812 Encounter for preprocedural laboratory examination (principal); C50.911 Malignant neoplasm of unspecified site of right female breast; Z53.9 Procedure and treatment not carried out, unspecified reason

== ENCOUNTER 2020-08-20 05:33 | Outpatient (RCR) | payer OTHER ==
[~2020-08-20] VITALS: Ht 172.7 cm; Wt 112.3 kg
[~2020-08-20 05:33] MED LIST changes: +MTP25TSR PO
== END 2020-08-20 09:12 | disposition home or self-care (01) ==
LOC: PREOP 05:33
PROVIDERS: ATTEND Surgery
DX: Z01.818 Encounter for other preprocedural examination (principal); Z20.828 Contact with and (suspected) exposure to other viral communicable diseases
CPT/HCPCS: 87635

== ENCOUNTER 2020-08-20 14:05 | Outpatient (RCR) | payer OTHER ==
[2020-06-05 13:16] LABS: BASOPHILS # (AUTO) 0.1 10^3/uL (0.0-0.1); BASOPHILS % (AUTO) 1 % (0-10); EOSINOPHILS # (AUTO) 0.3 10^3/uL (0.0-0.3); EOSINOPHILS % (AUTO) 3 % (0-10); HEMATOCRIT 45 % (35-52); HEMOGLOBIN 15.1 G/DL (11.5-16.0); LYMPHOCYTES # (AUTO) 2.6 X 10^3 (1.0-4.0); LYMPHOCYTES % (AUTO) 23 % (12-44); MEAN CORPUSCULAR HEMOGLOBIN 30 PG (25-34); MEAN CORPUSCULAR HGB CONC 33 G/DL (32-36); MEAN CORPUSCULAR VOLUME 89 FL (80-99); MEAN PLATELET VOLUME 10.2 FL (7.4-10.4); MONOCYTES # (AUTO) 1.1 X 10^3 (0.0-1.0); MONOCYTES % (AUTO) 10 % (0-12); NEUTROPHILS # (AUTO) 7.2 X 10^3 (1.8-7.8); NEUTROPHILS % (AUTO) 64 % (42-75); PLATELET COUNT 230 10^3/uL (130-400); WHITE BLOOD COUNT 11.2 10^3/uL (4.3-11.0)
[2020-06-05 13:33] LABS: ALBUMIN 4.1 GM/DL (3.2-4.5); BILIRUBIN,TOTAL 0.4 MG/DL (0.1-1.0); CALCIUM 9.9 MG/DL (8.5-10.1); CREATININE SERUM 0.98 MG/DL (0.60-1.30)
[~2020-08-20] VITALS: Ht 172.7 cm; Wt 110.2 kg
[2020-09-03] MEDS ORDERED: CYCLOPHOSPHAMIDE INJECTION 1,000 MG, CYCLOPHOSPHAMIDE INJECTION 200 MG in NS (IVPB) CAN... IV SCH (08:45)
[2020-09-03] MEDS ORDERED: NS IV 1000 ML (CANCER CTR) IV SCH (08:45)
[2020-09-03] MEDS ORDERED: LORazepam INJ 2 MG/ML VIAL CANCER CTR IV SCH (08:45)
[2020-09-03] MEDS ORDERED: FOSAPREPITANT (CANCER CENTER) 150 MG in NS (IVPB) CANCER CENTER ONLY 150 ML IV SCH (08:45)
[2020-09-03] MEDS ORDERED: PEGFILGRASTIM 6 MG/0.6ML NEULASTA SC SCH (08:45)
== END 2020-09-03 | disposition home or self-care (01) ==
LOC: ONC 14:05
PROVIDERS: ATTEND Internal Medicine Hematology & Oncology
DX: C50.411 Malignant neoplasm of upper-outer quadrant of right female breast (principal); I10 Essential (primary) hypertension; Z90.49 Acquired absence of other specified parts of digestive tract
CPT/HCPCS: 80053; 85025; G0463; 99213; 99214

== ENCOUNTER 2020-08-23 07:14 | Day surgery (SDC) | payer OTHER ==
[~2020-08-23] VITALS: Ht 172.7 cm; Wt 112.3 kg
[2020-08-23] VITALS (10 sets, daily range): BP systolic 90–129; BP diastolic 58–99
[2020-08-23] MEDS ORDERED: LACTATED RINGERS 1,000 ML IV PRN (07:44)
[2020-08-23] MEDS ORDERED: ceFAZolin 2 GM IV Premixed 50 ML IV ONE (07:45)
[2020-08-23] MEDS ORDERED: CATHETER FLUSH 10 ML SYR IV PRN (08:00)
[2020-08-23] MEDS ORDERED: HEParin (CENTRAL IV FLUSH) 500 UNIT/5 ML SYR ONE (08:35)
[2020-08-23] MEDS ORDERED: 0.9% SODIUM CHLORIDE PF INJ 20 ML VIAL ONE (08:35)
[2020-08-23] MEDS ORDERED: LIDOCAINE/EPI 1%-1:100,000 (XYLOCAINE) 20ML ONE (08:36)
[2020-08-23] MEDS ORDERED: MIDAZOLAM 2 MG/2 ML (VERSED) VIAL ONE (09:08)
[2020-08-23] MEDS ORDERED: PROPOFOL INJECTION 50 ML IV ONE ×3 (09:08→10:42)
[2020-08-23] MEDS ORDERED: morphine INJ 10 MG/ML 1ML (SYR OR VIAL) ONE (11:13)
[2020-08-23] MEDS ORDERED: morphine INJ 10 MG/ML 1ML (SYR OR VIAL) IVP ONE (11:15)
--- NOTE | 2020-08-23 11:41 | Anesthesia-General Post-Op ---
MAC Patient Condition Mental Status/LOC: Same as Preop Cardiovascular: Satisfactory Nausea/Vomiting: Absent Respiratory: Satisfactory Pain: Controlled Complications: Absent Post Op Complications Complications None Follow Up Care/Instructions Patient Instructions None needed. Anesthesiology Discharge Order Discharge Order Patient is doing well, no complaints, stable vital signs, no apparent adverse anesthesia problems. No complications reported per nursing. ANNABELLE CASILLAS CRNA Aug 23, 2020 11:41
--- NOTE | 2020-08-23 11:43 | Diagnostic Imaging Report ---
Indication: Central line placement Portable chest 11:17 AM Left IJ Port-A-Cath tip projects over the SVC. Heart size and pulmonary vascularity are normal. Lungs are clear. There are no effusions or pneumothoraces. IMPRESSION: No acute abnormalities in the chest Dictated by: Dictated on workstation # [id number]
--- NOTE | 2020-08-23 12:33 | Diagnostic Imaging Report ---
INDICATION: Port-A-Cath placement. COMPARISON: None. TOTAL FLUOROSCOPY TIME: 444 seconds. TOTAL NUMBER OF FLUOROSCOPIC IMAGES SAVED: 88. FINDINGS: Multiple intraoperative image intensifier views of the upper chest were obtained during Port-A-Cath placement. Images provided show a left internal jugular venous approach. Evaluation for pneumothorax is suboptimal given fluoroscopic modality. Please note, the interpreting radiologist was not present during the procedure. IMPRESSION: Fluoroscopic guidance was provided during Port-A-Cath placement. Dictated by: Dictated on workstation # [id number]
--- NOTE | 2020-08-23 15:14 | Progress Note-Post Operative ---
Post-Operative Progess Note Surgeon (s)/Offender Job Retention Specialist (s) Surgeon HILTON MARTINEZ DO Offender Job Retention Specialist: na Pre-Operative Diagnosis Right breast cancer Post-Operative Diagnosis same Procedure & Operative Findings Date of Procedure 08/23/20 Procedure Performed/Findings Left IJ u/s guided port placement, angiogram Anesthesia Type mac c local Estimated Blood Loss Estimated blood loss (mL): minimal Specimens/Packing Specimens Removed na HILTON MARTINEZ DO Aug 23, 2020 15:14
--- NOTE | 2020-08-27 14:34 | OPERATIVE REPORT ---
DATE OF SERVICE: 08/23/2020 PREOPERATIVE DIAGNOSIS: Breast cancer. POSTOPERATIVE DIAGNOSIS: Breast cancer. PROCEDURES PERFORMED: Ultrasound-guided port placement, left internal jugular vein and angiogram. SURGEON: Hilton Woodruff DO ANESTHESIA: MAC with local. ESTIMATED BLOOD LOSS: Minimal. COMPLICATIONS: None. INDICATIONS: The patient is a 49-year-old female with breast cancer needing port placement for chemotherapy. She understands risks and benefits of procedure and wished to proceed with procedure. Consent was signed in the chart. DESCRIPTION OF PROCEDURE: The patient was taken to the operating suite. She was prepped and draped in a sterile fashion. Timeout was performed. Ultrasound was used to isolate the left internal jugular vein. Local anesthetic was infiltrated. Using micro access needle, the left internal jugular vein was accessed, dark nonpulsatile blood was withdrawn. The wire was inserted through the needle and the needle was removed. Fluoroscopy assured placement; however, the wire had to be slowly manipulated to get into the SVC. At this point, the #11 blade scalpel was used to make a small skin incision at the insertion point. The micro access dilator sheath was then advanced over the wire and the wire was removed. The normal guidewire was then inserted, which was unable to get in the proper positioning in the SVC, it would continue to coil back. Multiple attempts of repositioning and manipulating the wire were made without success. This was removed. The micro wire was then reinserted and again was able to be manipulated into proper position. At this point, I determined to shoot an angiogram confirming proper placement and to delineate the anatomy. The catheter was in the left internal jugular vein and demonstrating a slightly increased into the superior vena cava. At this time, the regular wire was then reinserted and the wire was able to be manipulated into the SVC. The dilator sheath was then advanced over the wire and the wire was removed. The Groshong catheter was inserted through the sheath and the sheath was then removed. The wire with the catheter was then removed. The catheter was then tunneled into the pocket that was created on the left chest. After local anesthetic was infiltrated, a 15 blade scalpel was used to make a small skin incision down to the pectoral fascia and then blunt dissection was used to create a pocket. The Groshong catheter was tunneled to the pocket, cut to length using fluoroscopy and attached to the port in the usual fashion. This was placed in the pocket and then accessed. It was accessed without difficulty and flushed with saline and then heparin without any difficulties. The subcutaneous tissues were then reapproximated using 3-0 Vicryl. The skin was then closed using Skin Affix. The patient tolerated the procedure well without any complications. She was taken to recovery room in stable condition. Chest x-ray pending. Job ID: [id number] DocumentID: [id number] Dictated Date: 08/27/2020 10:43:15 Nutrition Services Manager Date: 08/27/2020 14:33:14 Dictated By: HILTON WOODRUFF DO
== END 2020-08-23 13:00 | disposition home or self-care (01) ==
LOC: SDC 07:14
PROVIDERS: ATTEND Surgery
DX: C50.911 Malignant neoplasm of unspecified site of right female breast (principal); I10 Essential (primary) hypertension; I87.2 Venous insufficiency (chronic) (peripheral); R00.8 Other abnormalities of heart beat; E66.9 Obesity, unspecified; Z68.37 Body mass index [BMI] 37.0-37.9, adult; Z79.899 Other long term (current) drug therapy; Z90.49 Acquired absence of other specified parts of digestive tract; Z92.21 Personal history of antineoplastic chemotherapy; Z83.3 Family history of diabetes mellitus
CPT/HCPCS: 36561; 71045; 76000; 84703; 87081; C1788

== ENCOUNTER 2020-10-01 09:37 | Outpatient (RCR) | payer OTHER ==
[2020-09-24 15:50] LABS: BASOPHILS # (AUTO) 0.1 10^3/uL (0.0-0.1); BASOPHILS % (AUTO) 1 % (0-10); EOSINOPHILS # (AUTO) 0.3 10^3/uL (0.0-0.3); EOSINOPHILS % (AUTO) 4 % (0-10); HEMATOCRIT 41 % (35-52); HEMOGLOBIN 13.4 g/dL (11.5-16.0); LYMPHOCYTES # (AUTO) 2.1 10^3/uL (1.0-4.0); LYMPHOCYTES % (AUTO) 32 % (12-44); MEAN CORPUSCULAR HEMOGLOBIN 29 pg (25-34); MEAN CORPUSCULAR HGB CONC 32 g/dL (32-36); MEAN CORPUSCULAR VOLUME 91 fL (80-99); MEAN PLATELET VOLUME 10.8 fL (9.0-12.2); MONOCYTES # (AUTO) 0.7 10^3/uL (0.0-1.0); MONOCYTES % (AUTO) 10 % (0-12); NEUTROPHILS # (AUTO) 3.5 10^3/uL (1.8-7.8); NEUTROPHILS % (AUTO) 53 % (42-75); PLATELET COUNT 217 10^3/uL (130-400); WHITE BLOOD COUNT 6.7 10^3/uL (4.3-11.0)
[2020-09-24 15:58] LABS: ALBUMIN 3.9 GM/DL (3.2-4.5); POTASSIUM 3.7 MMOL/L (3.6-5.0)
[2020-09-24 15:59] LABS: CALCIUM 8.7 MG/DL (8.5-10.1)
[2020-09-24 16:01] LABS: TOTAL PROTEIN 7.4 GM/DL (6.4-8.2)
[2020-09-24 16:02] LABS: BILIRUBIN,TOTAL 0.5 MG/DL (0.1-1.0)
[2020-09-24 16:04] LABS: CREATININE SERUM 1.06 MG/DL (0.60-1.30)
[~2020-10-01 09:37] MED LIST changes: +CYCLOPHOSPHAMIDE INJECTION 1,000 MG, CYCLOPHOSPHAMIDE INJECTION 200 MG in NS (IVPB) CAN... IV SCH; +FOSAPREPITANT (CANCER CENTER) 150 MG in NS (IVPB) CANCER CENTER ONLY 150 ML IV SCH; +LORazepam INJ 2 MG/ML VIAL CANCER CTR IV SCH; +NS IV 1000 ML (CANCER CTR) IV SCH; +PEGFILGRASTIM 6 MG/0.6ML NEULASTA SC SCH
[2020-10-01 09:55] LABS: BASOPHILS # (AUTO) 0.1 10^3/uL (0.0-0.1); BASOPHILS % (AUTO) 3 % (0-10); EOSINOPHILS # (AUTO) 0.4 10^3/uL (0.0-0.3); EOSINOPHILS % (AUTO) 18 % (0-10); HEMATOCRIT 43 % (35-52); HEMOGLOBIN 14.1 g/dL (11.5-16.0); LYMPHOCYTES % (AUTO) 49 % (12-44); MEAN CORPUSCULAR HEMOGLOBIN 29 pg (25-34); MEAN CORPUSCULAR HGB CONC 33 g/dL (32-36); MEAN CORPUSCULAR VOLUME 89 fL (80-99); MEAN PLATELET VOLUME 10.6 fL (9.0-12.2); MONOCYTES # (AUTO) 0.1 10^3/uL (0.0-1.0); MONOCYTES % (AUTO) 5 % (0-12); NEUTROPHILS # (AUTO) 0.5 10^3/uL (1.8-7.8); NEUTROPHILS % (AUTO) 25 % (42-75); PLATELET COUNT 158 10^3/uL (130-400)
[2020-10-01 10:11] LABS: BUN/CREATININE RATIO 15; CARBON DIOXIDE 28 MMOL/L (21-32); CHLORIDE 99 MMOL/L (98-107); CREATININE SERUM 0.93 MG/DL (0.60-1.30); GFR ESTIMATED > 60; GLUCOSE 126 MG/DL (70-105); POTASSIUM 3.6 MMOL/L (3.6-5.0); SODIUM 133 MMOL/L (135-145)
== END 2020-10-08 11:02 | disposition home or self-care (01) ==
LOC: ONC 09:37
PROVIDERS: ATTEND Internal Medicine Hematology & Oncology
DX: C50.411 Malignant neoplasm of upper-outer quadrant of right female breast (principal); I10 Essential (primary) hypertension; Z90.49 Acquired absence of other specified parts of digestive tract
CPT/HCPCS: 36591; 80048; 80053; 85025; 96367; 96372; 96375; 96411; 96413; 99213

== ENCOUNTER 2021-01-02 14:35 | Outpatient (RCR) | payer OTHER ==
[2020-10-10 14:18] LABS: BASOPHILS # (AUTO) 0.1 10^3/uL (0.0-0.1); BASOPHILS % (AUTO) 1 % (0-10); EOSINOPHILS # (AUTO) 0.1 10^3/uL (0.0-0.3); EOSINOPHILS % (AUTO) 1 % (0-10); HEMATOCRIT 42 % (35-52); HEMOGLOBIN 13.8 g/dL (11.5-16.0); LYMPHOCYTES # (AUTO) 2.3 10^3/uL (1.0-4.0); LYMPHOCYTES % (AUTO) 23 % (12-44); MEAN CORPUSCULAR HEMOGLOBIN 30 pg (25-34); MEAN CORPUSCULAR HGB CONC 33 g/dL (32-36); MEAN CORPUSCULAR VOLUME 91 fL (80-99); MEAN PLATELET VOLUME 10.1 fL (9.0-12.2); MONOCYTES % (AUTO) 10 % (0-12); NEUTROPHILS # (AUTO) 6.4 10^3/uL (1.8-7.8); NEUTROPHILS % (AUTO) 63 % (42-75); PLATELET COUNT 232 10^3/uL (130-400)
[2020-10-10 14:44] LABS: BILIRUBIN,TOTAL 0.4 MG/DL (0.1-1.0); CALCIUM 9.1 MG/DL (8.5-10.1); CREATININE SERUM 1.04 MG/DL (0.60-1.30); POTASSIUM 3.3 MMOL/L (3.6-5.0); TOTAL PROTEIN 7.9 GM/DL (6.4-8.2)
[2020-10-24 15:23] LABS: BASOPHILS # (AUTO) 0.1 10^3/uL (0.0-0.1); BASOPHILS % (AUTO) 1 % (0-10); EOSINOPHILS # (AUTO) 0.1 10^3/uL (0.0-0.3); EOSINOPHILS % (AUTO) 1 % (0-10); HEMATOCRIT 40 % (35-52); HEMOGLOBIN 13.1 g/dL (11.5-16.0); LYMPHOCYTES # (AUTO) 1.1 X 10^3 (1.0-4.0); LYMPHOCYTES % (AUTO) 14 % (12-44); MEAN CORPUSCULAR HEMOGLOBIN 29 pg (25-34); MEAN CORPUSCULAR HGB CONC 33 g/dL (32-36); MEAN CORPUSCULAR VOLUME 89 fL (80-99); MEAN PLATELET VOLUME 9.9 fL (9.0-12.2); MONOCYTES # (AUTO) 0.9 X 10^3 (0.0-1.0); MONOCYTES % (AUTO) 12 % (0-12); NEUTROPHILS # (AUTO) 5.1 X 10^3 (1.8-7.8); NEUTROPHILS % (AUTO) 70 % (42-75); PLATELET COUNT 140 10^3/uL (130-400); WHITE BLOOD COUNT 7.3 10^3/uL (4.3-11.0)
[2020-10-24 15:41] LABS: ALBUMIN 3.8 GM/DL (3.2-4.5); BILIRUBIN,TOTAL 0.4 MG/DL (0.1-1.0); CALCIUM 9.4 MG/DL (8.5-10.1); CREATININE SERUM 1.12 MG/DL (0.60-1.30); POTASSIUM 3.5 MMOL/L (3.6-5.0); TOTAL PROTEIN 7.6 GM/DL (6.4-8.2)
[2020-10-31 16:37] LABS: BASOPHILS % (AUTO) 3 % (0-10); EOSINOPHILS % (AUTO) 5 % (0-10); HEMATOCRIT 39 % (35-52); HEMOGLOBIN 12.5 g/dL (11.5-16.0); LYMPHOCYTES # (AUTO) 0.4 10^3/uL (1.0-4.0); LYMPHOCYTES % (AUTO) 60 % (12-44); MEAN CORPUSCULAR HEMOGLOBIN 29 pg (25-34); MEAN CORPUSCULAR HGB CONC 32 g/dL (32-36); MEAN CORPUSCULAR VOLUME 91 fL (80-99); MEAN PLATELET VOLUME 9.9 fL (9.0-12.2); MONOCYTES # (AUTO) 0.2 10^3/uL (0.0-1.0); MONOCYTES % (AUTO) 26 % (0-12); NEUTROPHILS % (AUTO) 3 % (42-75); PLATELET COUNT 152 10^3/uL (130-400)
[2020-10-31 16:38] LABS: WHITE BLOOD COUNT 0.6 10^3/uL (4.3-11.0)
[2020-10-31 16:42] LABS: BUN/CREATININE RATIO 16; CALCIUM 9.2 MG/DL (8.5-10.1); CARBON DIOXIDE 26 MMOL/L (21-32); CHLORIDE 98 MMOL/L (98-107); CREATININE SERUM 0.85 MG/DL (0.60-1.30); GFR ESTIMATED > 60; GLUCOSE 118 MG/DL (70-105); POTASSIUM 3.5 MMOL/L (3.6-5.0); SODIUM 136 MMOL/L (135-145)
[2020-11-07 14:54] LABS: BASOPHILS # (AUTO) 0.1 10^3/uL (0.0-0.1); BASOPHILS % (AUTO) 1 % (0-10); EOSINOPHILS % (AUTO) 0 % (0-10); HEMATOCRIT 39 % (35-52); HEMOGLOBIN 12.8 g/dL (11.5-16.0); LYMPHOCYTES # (AUTO) 0.8 10^3/uL (1.0-4.0); LYMPHOCYTES % (AUTO) 14 % (12-44); MEAN CORPUSCULAR HEMOGLOBIN 29 pg (25-34); MEAN CORPUSCULAR HGB CONC 33 g/dL (32-36); MEAN CORPUSCULAR VOLUME 89 fL (80-99); MEAN PLATELET VOLUME 10.1 fL (9.0-12.2); MONOCYTES # (AUTO) 0.8 10^3/uL (0.0-1.0); MONOCYTES % (AUTO) 14 % (0-12); NEUTROPHILS # (AUTO) 3.8 10^3/uL (1.8-7.8); NEUTROPHILS % (AUTO) 66 % (42-75); PLATELET COUNT 175 10^3/uL (130-400); WHITE BLOOD COUNT 5.8 10^3/uL (4.3-11.0)
[2020-11-07 15:35] LABS: ALANINE AMINOTRANSFERASE 19 U/L (0-55); ALBUMIN 3.7 GM/DL (3.2-4.5); ALKALINE PHOSPHATASE 59 U/L (40-136); BILIRUBIN,TOTAL 0.4 MG/DL (0.1-1.0); BUN/CREATININE RATIO 14; CALCIUM 9.2 MG/DL (8.5-10.1); CARBON DIOXIDE 25 MMOL/L (21-32); CHLORIDE 100 MMOL/L (98-107); GFR ESTIMATED > 60; GLUCOSE 148 MG/DL (70-105); POTASSIUM 3.5 MMOL/L (3.6-5.0); SODIUM 136 MMOL/L (135-145); TOTAL PROTEIN 7.2 GM/DL (6.4-8.2)
[2020-11-14 11:46] LABS: MEAN PLATELET VOLUME 9.8 fL (9.0-12.2)
[2020-11-14 11:47] LABS: BASOPHILS % (AUTO) 8 % (0-10); EOSINOPHILS % (AUTO) 5 % (0-10); HEMATOCRIT 36 % (35-52); HEMOGLOBIN 11.9 g/dL (11.5-16.0); LYMPHOCYTES # (AUTO) 0.3 10^3/uL (1.0-4.0); LYMPHOCYTES % (AUTO) 63 % (12-44); MEAN CORPUSCULAR HEMOGLOBIN 29 pg (25-34); MEAN CORPUSCULAR HGB CONC 33 g/dL (32-36); MEAN CORPUSCULAR VOLUME 87 fL (80-99); MONOCYTES # (AUTO) 0.1 10^3/uL (0.0-1.0); MONOCYTES % (AUTO) 23 % (0-12); NEUTROPHILS % (AUTO) 3 % (42-75); PLATELET COUNT 129 10^3/uL (130-400)
[2020-11-14 11:49] LABS: WHITE BLOOD COUNT 0.4 10^3/uL (4.3-11.0)
[2020-11-14 12:06] LABS: BUN/CREATININE RATIO 17; CALCIUM 9.4 MG/DL (8.5-10.1); CARBON DIOXIDE 24 MMOL/L (21-32); CHLORIDE 97 MMOL/L (98-107); CREATININE SERUM 0.82 MG/DL (0.60-1.30); GFR ESTIMATED > 60; GLUCOSE 136 MG/DL (70-105); POTASSIUM 3.5 MMOL/L (3.6-5.0); SODIUM 132 MMOL/L (135-145)
[2020-11-21 13:53] LABS: BASOPHILS % (AUTO) 0 % (0-10); EOSINOPHILS % (AUTO) 0 % (0-10); HEMATOCRIT 37 % (35-52); HEMOGLOBIN 12.5 g/dL (11.5-16.0); LYMPHOCYTES # (AUTO) 0.4 10^3/uL (1.0-4.0); LYMPHOCYTES % (AUTO) 5 % (12-44); MEAN CORPUSCULAR HEMOGLOBIN 30 pg (25-34); MEAN CORPUSCULAR HGB CONC 34 g/dL (32-36); MEAN CORPUSCULAR VOLUME 88 fL (80-99); MONOCYTES # (AUTO) 0.2 10^3/uL (0.0-1.0); MONOCYTES % (AUTO) 2 % (0-12); NEUTROPHILS # (AUTO) 7.8 10^3/uL (1.8-7.8); NEUTROPHILS % (AUTO) 88 % (42-75); PLATELET COUNT 219 10^3/uL (130-400); WHITE BLOOD COUNT 8.8 10^3/uL (4.3-11.0)
[2020-11-21 14:12] LABS: ALANINE AMINOTRANSFERASE 24 U/L (0-55); ALBUMIN 3.9 GM/DL (3.2-4.5); ALKALINE PHOSPHATASE 63 U/L (40-136); BILIRUBIN,TOTAL 0.7 MG/DL (0.1-1.0); BUN/CREATININE RATIO 18; CALCIUM 9.4 MG/DL (8.5-10.1); CARBON DIOXIDE 23 MMOL/L (21-32); CHLORIDE 102 MMOL/L (98-107); CREATININE SERUM 0.91 MG/DL (0.60-1.30); GFR ESTIMATED > 60; GLUCOSE 245 MG/DL (70-105); POTASSIUM 3.9 MMOL/L (3.6-5.0); SODIUM 135 MMOL/L (135-145); TOTAL PROTEIN 7.6 GM/DL (6.4-8.2)
[2020-11-28 14:43] LABS: BASOPHILS % (AUTO) 0 % (0-10); EOSINOPHILS % (AUTO) 0 % (0-10); HEMATOCRIT 34 % (35-52); HEMOGLOBIN 11.5 g/dL (11.5-16.0); LYMPHOCYTES # (AUTO) 0.5 10^3/uL (1.0-4.0); LYMPHOCYTES % (AUTO) 4 % (12-44); MEAN CORPUSCULAR HEMOGLOBIN 30 pg (25-34); MEAN CORPUSCULAR HGB CONC 34 g/dL (32-36); MEAN CORPUSCULAR VOLUME 88 fL (80-99); MEAN PLATELET VOLUME 10.1 fL (9.0-12.2); MONOCYTES # (AUTO) 0.1 10^3/uL (0.0-1.0); MONOCYTES % (AUTO) 1 % (0-12); NEUTROPHILS # (AUTO) 11.2 10^3/uL (1.8-7.8); NEUTROPHILS % (AUTO) 92 % (42-75); PLATELET COUNT 336 10^3/uL (130-400); WHITE BLOOD COUNT 12.1 10^3/uL (4.3-11.0)
[2020-11-28 14:55] LABS: CHLORIDE 102 MMOL/L (98-107); POTASSIUM 4.2 MMOL/L (3.6-5.0); SODIUM 133 MMOL/L (135-145)
[2020-11-28 14:56] LABS: CALCIUM 8.8 MG/DL (8.5-10.1); GLUCOSE 305 MG/DL (70-105)
[2020-11-28 14:58] LABS: CARBON DIOXIDE 18 MMOL/L (21-32)
[2020-11-28 15:00] LABS: CREATININE SERUM 0.94 MG/DL (0.60-1.30); GFR ESTIMATED > 60
[2020-11-28 15:01] LABS: BUN/CREATININE RATIO 14
[2020-12-05 15:15] LABS: BASOPHILS % (AUTO) 0 % (0-10); EOSINOPHILS % (AUTO) 0 % (0-10); HEMATOCRIT 35 % (35-52); HEMOGLOBIN 11.6 g/dL (11.5-16.0); LYMPHOCYTES # (AUTO) 0.5 10^3/uL (1.0-4.0); LYMPHOCYTES % (AUTO) 7 % (12-44); MEAN CORPUSCULAR HEMOGLOBIN 30 pg (25-34); MEAN CORPUSCULAR HGB CONC 33 g/dL (32-36); MEAN CORPUSCULAR VOLUME 91 fL (80-99); MEAN PLATELET VOLUME 10.9 fL (9.0-12.2); MONOCYTES # (AUTO) 0.2 10^3/uL (0.0-1.0); MONOCYTES % (AUTO) 4 % (0-12); NEUTROPHILS # (AUTO) 5.4 10^3/uL (1.8-7.8); NEUTROPHILS % (AUTO) 87 % (42-75); PLATELET COUNT 167 10^3/uL (130-400); WHITE BLOOD COUNT 6.2 10^3/uL (4.3-11.0)
[2020-12-05 15:16] LABS: BILIRUBIN,URINE NEGATIVE (NEGATIVE); CLARITY,URINE CLEAR; COLOR,URINE YELLOW; GLUCOSE, URINE (UA) NEGATIVE (NEGATIVE); KETONES,URINE NEGATIVE (NEGATIVE); LEUKOCYTE ESTERASE ,URINE NEGATIVE (NEGATIVE); NITRITE,URINE NEGATIVE (NEGATIVE); PROTEIN,URINE NEGATIVE (NEGATIVE)
[2020-12-05 15:26] LABS: BACTERIA,URINE NEGATIVE /HPF; RBC,URINE 0-2 /HPF; SQUAMOUS EPITHELIAL CELL,UR 0-2 /HPF
[2020-12-05 15:39] LABS: BUN/CREATININE RATIO 19; CALCIUM 8.4 MG/DL (8.5-10.1); CARBON DIOXIDE 20 MMOL/L (21-32); CHLORIDE 96 MMOL/L (98-107); CREATININE SERUM 0.81 MG/DL (0.60-1.30); GFR ESTIMATED > 60; GLUCOSE 189 MG/DL (70-105); SODIUM 126 MMOL/L (135-145)
[2020-12-11 15:34] LABS: BASOPHILS # (AUTO) 0.1 10^3/uL (0.0-0.1); BASOPHILS % (AUTO) 2 % (0-10); EOSINOPHILS # (AUTO) 0.1 10^3/uL (0.0-0.3); EOSINOPHILS % (AUTO) 2 % (0-10); HEMATOCRIT 33 % (35-52); HEMOGLOBIN 10.9 g/dL (11.5-16.0); LYMPHOCYTES # (AUTO) 0.9 10^3/uL (1.0-4.0); LYMPHOCYTES % (AUTO) 21 % (12-44); MEAN CORPUSCULAR HEMOGLOBIN 31 pg (25-34); MEAN CORPUSCULAR HGB CONC 33 g/dL (32-36); MEAN CORPUSCULAR VOLUME 92 fL (80-99); MEAN PLATELET VOLUME 10.3 fL (9.0-12.2); MONOCYTES # (AUTO) 0.5 10^3/uL (0.0-1.0); MONOCYTES % (AUTO) 12 % (0-12); NEUTROPHILS # (AUTO) 2.5 10^3/uL (1.8-7.8); NEUTROPHILS % (AUTO) 60 % (42-75); PLATELET COUNT 219 10^3/uL (130-400); WHITE BLOOD COUNT 4.2 10^3/uL (4.3-11.0)
[2020-12-11 15:54] LABS: ALANINE AMINOTRANSFERASE 46 U/L (0-55); ALBUMIN 3.6 GM/DL (3.2-4.5); ALKALINE PHOSPHATASE 50 U/L (40-136); BILIRUBIN,TOTAL 0.7 MG/DL (0.1-1.0); BUN/CREATININE RATIO 17; CALCIUM 8.8 MG/DL (8.5-10.1); CARBON DIOXIDE 26 MMOL/L (21-32); CHLORIDE 102 MMOL/L (98-107); CREATININE SERUM 0.88 MG/DL (0.60-1.30); GFR ESTIMATED > 60; GLUCOSE 121 MG/DL (70-105); POTASSIUM 3.6 MMOL/L (3.6-5.0); SODIUM 137 MMOL/L (135-145); TOTAL PROTEIN 6.6 GM/DL (6.4-8.2)
[2020-12-19 14:23] LABS: BASOPHILS # (AUTO) 0.1 10^3/uL (0.0-0.1); BASOPHILS % (AUTO) 2 % (0-10); EOSINOPHILS # (AUTO) 0.1 10^3/uL (0.0-0.3); EOSINOPHILS % (AUTO) 2 % (0-10); HEMATOCRIT 33 % (35-52); LYMPHOCYTES # (AUTO) 0.9 10^3/uL (1.0-4.0); LYMPHOCYTES % (AUTO) 23 % (12-44); MEAN CORPUSCULAR HEMOGLOBIN 31 pg (25-34); MEAN CORPUSCULAR HGB CONC 33 g/dL (32-36); MEAN CORPUSCULAR VOLUME 94 fL (80-99); MEAN PLATELET VOLUME 9.9 fL (9.0-12.2); MONOCYTES # (AUTO) 0.8 10^3/uL (0.0-1.0); MONOCYTES % (AUTO) 20 % (0-12); NEUTROPHILS # (AUTO) 1.9 10^3/uL (1.8-7.8); NEUTROPHILS % (AUTO) 49 % (42-75); PLATELET COUNT 261 10^3/uL (130-400); WHITE BLOOD COUNT 3.8 10^3/uL (4.3-11.0)
[2020-12-19 14:40] LABS: BUN/CREATININE RATIO 14; CALCIUM 8.9 MG/DL (8.5-10.1); CARBON DIOXIDE 22 MMOL/L (21-32); CHLORIDE 102 MMOL/L (98-107); CREATININE SERUM 0.86 MG/DL (0.60-1.30); GFR ESTIMATED > 60; GLUCOSE 152 MG/DL (70-105); POTASSIUM 3.5 MMOL/L (3.6-5.0); SODIUM 136 MMOL/L (135-145)
[2020-12-26 15:02] LABS: BASOPHILS # (AUTO) 0.1 10^3/uL (0.0-0.1); BASOPHILS % (AUTO) 1 % (0-10); EOSINOPHILS # (AUTO) 0.2 10^3/uL (0.0-0.3); EOSINOPHILS % (AUTO) 3 % (0-10); HEMATOCRIT 33 % (35-52); HEMOGLOBIN 10.8 g/dL (11.5-16.0); LYMPHOCYTES # (AUTO) 1.2 10^3/uL (1.0-4.0); LYMPHOCYTES % (AUTO) 17 % (12-44); MEAN CORPUSCULAR HEMOGLOBIN 32 pg (25-34); MEAN CORPUSCULAR HGB CONC 33 g/dL (32-36); MEAN CORPUSCULAR VOLUME 96 fL (80-99); MEAN PLATELET VOLUME 9.9 fL (9.0-12.2); MONOCYTES # (AUTO) 1.2 10^3/uL (0.0-1.0); MONOCYTES % (AUTO) 16 % (0-12); NEUTROPHILS # (AUTO) 4.1 10^3/uL (1.8-7.8); NEUTROPHILS % (AUTO) 58 % (42-75); PLATELET COUNT 269 10^3/uL (130-400); WHITE BLOOD COUNT 7.2 10^3/uL (4.3-11.0)
[2020-12-26 15:19] LABS: CALCIUM 9.3 MG/DL (8.5-10.1); CREATININE SERUM 1.23 MG/DL (0.60-1.30); POTASSIUM 3.5 MMOL/L (3.6-5.0)
[~2021-01-02 14:35] MED LIST changes: +ALTEPLASE 2 MG (CATHFLO) CANCER CENTER IV ONE; +FAMOTIDINE 20MG/2ML IV (CANCER CTR) IV SCH; +PEGFILGRASTIM-BMEZ 6 MG/0.6 ML ZIEXTENZO SQ SCH; +diphenhydrAMINE 25 MG TAB (BENADRYL) CANCER CENTER PO SCH; +diphenhydrAMINE 50 MG/ML INJ (CANCER CENTER) IV PRN
[2021-01-02 15:14] LABS: BASOPHILS # (AUTO) 0.1 10^3/uL (0.0-0.1); BASOPHILS % (AUTO) 1 % (0-10); EOSINOPHILS # (AUTO) 0.2 10^3/uL (0.0-0.3); EOSINOPHILS % (AUTO) 2 % (0-10); HEMATOCRIT 35 % (35-52); HEMOGLOBIN 11.6 g/dL (11.5-16.0); LYMPHOCYTES # (AUTO) 0.8 10^3/uL (1.0-4.0); LYMPHOCYTES % (AUTO) 12 % (12-44); MEAN CORPUSCULAR HEMOGLOBIN 32 pg (25-34); MEAN CORPUSCULAR HGB CONC 33 g/dL (32-36); MEAN CORPUSCULAR VOLUME 96 fL (80-99); MEAN PLATELET VOLUME 9.9 fL (9.0-12.2); MONOCYTES # (AUTO) 0.9 10^3/uL (0.0-1.0); MONOCYTES % (AUTO) 14 % (0-12); NEUTROPHILS # (AUTO) 4.6 10^3/uL (1.8-7.8); NEUTROPHILS % (AUTO) 68 % (42-75); PLATELET COUNT 212 10^3/uL (130-400); WHITE BLOOD COUNT 6.6 10^3/uL (4.3-11.0)
[2021-01-02 15:37] LABS: ALANINE AMINOTRANSFERASE 37 U/L (0-55); ALBUMIN 3.7 GM/DL (3.2-4.5); ALKALINE PHOSPHATASE 54 U/L (40-136); BILIRUBIN,TOTAL 0.6 MG/DL (0.1-1.0); BUN/CREATININE RATIO 12; CARBON DIOXIDE 26 MMOL/L (21-32); CHLORIDE 102 MMOL/L (98-107); CREATININE SERUM 0.92 MG/DL (0.60-1.30); GFR ESTIMATED > 60; GLUCOSE 150 MG/DL (70-105); POTASSIUM 3.6 MMOL/L (3.6-5.0); SODIUM 137 MMOL/L (135-145); TOTAL PROTEIN 6.9 GM/DL (6.4-8.2)
== END 2021-01-08 | disposition home or self-care (01) ==
LOC: ONC 14:35
PROVIDERS: ATTEND Internal Medicine Hematology & Oncology
DX: C50.411 Malignant neoplasm of upper-outer quadrant of right female breast (principal); I10 Essential (primary) hypertension; Z90.49 Acquired absence of other specified parts of digestive tract
CPT/HCPCS: 80053; 85025; 96367; 96375; 96411; 96413; G0463; 36415; 36591; 36593; 80048; 81000; 96372

== ENCOUNTER 2021-01-13 18:39 | Inpatient (IN) | payer OTHER ==
[~2021-01-13] VITALS: Ht 172.7 cm; Wt 111.0 kg
[~2021-01-13 18:39] MED LIST changes: -ALTEPLASE 2 MG (CATHFLO) CANCER CENTER IV ONE; -CYCLOPHOSPHAMIDE INJECTION 1,000 MG, CYCLOPHOSPHAMIDE INJECTION 200 MG in NS (IVPB) CAN... IV SCH; -FAMOTIDINE 20MG/2ML IV (CANCER CTR) IV SCH; -FOSAPREPITANT (CANCER CENTER) 150 MG in NS (IVPB) CANCER CENTER ONLY 150 ML IV SCH; -LORazepam INJ 2 MG/ML VIAL CANCER CTR IV SCH; -NS IV 1000 ML (CANCER CTR) IV SCH; -PEGFILGRASTIM 6 MG/0.6ML NEULASTA SC SCH; -PEGFILGRASTIM-BMEZ 6 MG/0.6 ML ZIEXTENZO SQ SCH; -diphenhydrAMINE 25 MG TAB (BENADRYL) CANCER CENTER PO SCH; -diphenhydrAMINE 50 MG/ML INJ (CANCER CENTER) IV PRN
[2021-01-13] MEDS ORDERED: ACETAMINOPHEN 500 MG TAB (TYLENOL) ONE (19:05)
[2021-01-13] MEDS ORDERED: IBUPROFEN 800 MG (MOTRIN) TAB PO ONE ×2 (19:05→19:15)
[2021-01-13] MEDS ORDERED: LACTATED RINGERS 1,000 ML IV ONE (19:05)
[2021-01-13] MEDS ORDERED: ONDANSETRON 4 MG/2 ML (SDV) Z0FRAN ONE (19:05)
[2021-01-13] MEDS ORDERED: ONDANSETRON 4 MG/2 ML (SDV) Z0FRAN IVP ONE (19:15)
[2021-01-13] MEDS ORDERED: ACETAMINOPHEN 500 MG TAB (TYLENOL) PO ONE (19:15)
--- NOTE | 2021-01-13 19:17 | ED Fever ---
History of Present Illness General Stated Complaint: FEVER,COUGH,DIARRHEA,FATIGUE Source: patient Exam Limitations: no limitations History of Present Illness Date Seen by Provider: Jan 13, 2021 Time Seen by Provider: 19:00 Initial Comments To ER by private vehicle from home with reports of fever chills cough body aches short of breath diarrhea. She just finished her eighth round of Taxol for breast cancer on of last week. She follows with Dr. Nevarez. Symptoms began about 2 days ago. Timing/Duration: getting worse Fever Quality: greater than 102 F Associated Symptoms: No abdominal pain, No chest pain; cough, rash Allergies and Home Medications Allergies Coded Allergies: No Known Drug Allergies (Unverified , 11/18/15) Home Medications Metoprolol Succinate 25 Mg Tab.er.24h, 25 MG PO HS, (Reported) Patient Home Medication List Home Medication List Reviewed: Yes Review of Systems Review of Systems Constitutional: see HPI, chills, fever, malaise, weakness EENTM: see HPI Respiratory: see HPI, cough, short of breath Cardiovascular: no symptoms reported Genitourinary: no symptoms reported Musculoskeletal: no symptoms reported Skin: no symptoms reported Psychiatric/Neurological: No Symptoms Reported Hematologic/Lymphatic: No Symptoms Reported Immunological/Allergic: no symptoms reported Past Fudtwyo-Krdyfj-Hbzefk Hx Patient Social History 2nd Hand Smoke Exposure: No Recent Hopitalizations: No Immunizations Up To Date Date of Influenza Vaccine: Jul 04, 2020 Seasonal Allergies Seasonal Allergies: Yes Past Medical History Surgeries: Yes (R breast lumpectomy, DXLS) Gallbladder Respiratory: No Currently Using CPAP: No Currently Using BIPAP: No Cardiac: Yes (STRESS/CAFFIENE INDUCED BYGEMINY/TRIGEMINY) Hypertension Neurological: No Genitourinary: No Gastrointestinal: No Musculoskeletal: No Endocrine: No HEENT: No Cancer: Yes Breast What Type of Treatment Did You: Surgical Intervention Psychosocial: Yes Depression Integumentary: No Blood Disorders: No Physical Exam Vital Signs - First Documented 01/13/21 18:56 Temp 39.8 Pulse 90 Resp 20 B/P (MAP) 121/68 (85) Pulse Ox 89 O2 Delivery Room Air Capillary Refill : Height: 5'8.00" Weight: 240lbs. oz. 108.947069pm; 37.65 BMI Method:Stated General Appearance: WD/WN, no apparent distress, other (Oxygen saturation 89% on room air. Given 2 L of supplemental oxygen. She has a temperature of 103.5.) Eyes: Bilateral Eye Normal Inspection, Bilateral Eye PERRL, Bilateral Eye EOMI HEENT: PERRL/EOMI, normal ENT inspection Neck: non-tender, full range of motion Respiratory: normal breath sounds, no respiratory distress, no accessory muscle use Cardiovascular: tachycardia Gastrointestinal: normal bowel sounds, non tender Extremities: normal range of motion, non-tender Neurologic/Psychiatric: alert, normal mood/affect, oriented x 3 Skin: normal color, warm/dry Focused Exam Lactate Level 01/13/21 19:24: Lactic Acid Level 0.94 Lactic Acid Level Laboratory Tests Test 01/13/21 19:24 Lactic Acid Level 0.94 MMOL/L (0.50-2.00) Progress/Results/Core Measures Suspected Sepsis SIRS Temperature: Pulse: Respiratory Rate: Laboratory Tests 01/13/21 19:24: White Blood Count 1.2*L Blood Pressure / Mean: 01/13/21 19:24: Lactic Acid Level 0.94 Laboratory Tests 01/13/21 19:24: Creatinine 0.79, INR Comment 0.9, Platelet Count 93L, Total Bilirubin 0.7 Results/Orders Lab Results Laboratory Tests Test 01/13/21 19:07 01/13/21 19:24 Range/Units Coronavirus 2019 (NILAM) Detected H Not Detecte White Blood Count 1.2 *L 4.3-11.0 10^3/uL Red Blood Count 3.24 L 3.80-5.11 10^6/uL Hemoglobin 10.2 L 11.5-16.0 g/dL Hematocrit 32 L 35-52 % Mean Corpuscular Volume 100 H 80-99 fL Mean Corpuscular Hemoglobin 32 25-34 pg Mean Corpuscular Hemoglobin Concent 32 32-36 g/dL Red Cell Distribution Width 15.6 H 10.0-14.5 % Platelet Count 93 L 130-400 10^3/uL Mean Platelet Volume 11.7 9.0-12.2 fL Immature Granulocyte % (Auto) 2 % Neutrophils (%) (Auto) 76 H 42-75 % Lymphocytes (%) (Auto) 16 12-44 % Monocytes (%) (Auto) 6 0-12 % Eosinophils (%) (Auto) 0 0-10 % Basophils (%) (Auto) 1 0-10 % Neutrophils # (Auto) 0.9 L 1.8-7.8 10^3/uL Lymphocytes # (Auto) 0.2 L 1.0-4.0 10^3/uL Monocytes # (Auto) 0.1 0.0-1.0 10^3/uL Eosinophils # (Auto) 0.0 0.0-0.3 10^3/uL Basophils # (Auto) 0.0 0.0-0.1 10^3/uL Immature Granulocyte # (Auto) 0.0 0.0-0.1 10^3/uL Prothrombin Time 12.9 12.2-14.7 SEC INR Comment 0.9 0.8-1.4 D-Dimer 2.46 H 0.00-0.49 UG/ML Sodium Level 135 135-145 MMOL/L Potassium Level 3.1 L 3.6-5.0 MMOL/L Chloride Level 99 98-107 MMOL/L Carbon Dioxide Level 26 21-32 MMOL/L Anion Gap 10 5-14 MMOL/L Blood Urea Nitrogen 9 7-18 MG/DL Creatinine 0.79 0.60-1.30 MG/DL Estimat Glomerular Filtration Rate > 60 BUN/Creatinine Ratio 11 Glucose Level 122 H 70-105 MG/DL Lactic Acid Level 0.94 0.50-2.00 MMOL/L Calcium Level 8.2 L 8.5-10.1 MG/DL Corrected Calcium 8.8 8.5-10.1 MG/DL Total Bilirubin 0.7 0.1-1.0 MG/DL Aspartate Amino Transf (AST/SGOT) 61 H 5-34 U/L Alanine Aminotransferase (ALT/SGPT) 51 0-55 U/L Alkaline Phosphatase 52 40-136 U/L Total Protein 6.0 L 6.4-8.2 GM/DL Albumin 3.3 3.2-4.5 GM/DL Procalcitonin 0.10 H <0.10 NG/ML Micro Results Microbiology 01/13/21 Influenza Types A,B Antigen (SEAN) - Final, Complete My Orders Orders - VINAYAK RAYA APRN Procalcitonin (Pct) (01/13/21 19:10) Cbc With Automated Diff (01/13/21 19:10) Comprehensive Metabolic Panel (01/13/21 19:10) Protime With Inr (01/13/21 19:10) Chest 1 View, Ap/Pa Only (01/13/21 19:10) Influenza A And B Antigens (01/13/21 19:10) Covid 19 Inhouse Test (01/13/21 19:10) Lactated Ringers (Lr 1000 Ml Iv Solution (01/13/21 19:15) Ondansetron Injection (Zofran Injectio (01/13/21 19:15) Ibuprofen Tablet (Motrin Tablet) (01/13/21 19:15) Acetaminophen Tablet (Tylenol Tablet) (01/13/21 19:15) Blood Culture (01/13/21 19:10) Lactic Acid Analyzer (01/13/21 19:10) Lactated Ringers (Lr 1000 Ml Iv Solution (01/13/21 19:05) Ondansetron Injection (Zofran Injectio (01/13/21 19:05) Ibuprofen Tablet (Motrin Tablet) (01/13/21 19:05) Acetaminophen Tablet (Tylenol Tablet) (01/13/21 19:05) Ua Culture If Indicated (01/13/21 19:29) Cefepime Injection (Maxipime Injection) (01/13/21 19:45) Fibrin Degradation Products (01/13/21 20:40) Ct Angio Chest W (01/13/21 20:41) Tbo-Filgrastim Injection (Granix Injecti (01/13/21 20:45) Arterial Blood Gas (01/13/21 20:44) Hydrocodone/Apap 5/325 Tablet (Lortab 5 (01/13/21 21:00) Medications Given in ED Current Medications Medications Dose Ordered Sig/Kristan Route Start Time Stop Time Status Last Admin Dose Admin Acetaminophen 1,000 mg ONCE ONCE PO 01/13/21 19:15 01/13/21 19:16 DC 01/13/21 19:34 1,000 MG Cefepime HCl 2000 mg/Sterile Water 20 ml @ 240 mls/hr ONCE ONCE IV 01/13/21 19:45 01/13/21 19:49 DC 01/13/21 19:49 240 MLS/HR Ibuprofen 800 mg ONCE ONCE PO 01/13/21 19:15 01/13/21 19:16 DC 01/13/21 19:35 800 MG Ondansetron HCl 8 mg ONCE ONCE IVP 4/12/21 19:15 01/13/21 19:16 DC 01/13/21 19:34 8 MG Vital Signs/I&O 01/13/21 18:56 Temp 39.8 Pulse 90 Resp 20 B/P (MAP) 121/68 (85) Pulse Ox 89 O2 Delivery Room Air Capillary Refill : Diagnostic Imaging Diagonstic Imaging: CT Plain Films/CT/US/NM/MRI: chest Comments NAME: SHELBY LOZANO [facility] REC#: [id number] PT STATUS: REG ER : 1970 PHYSICIAN: VINAYAK RAYA APRN ADMIT DATE: 01/13/21/ER Draft Date of Exam:01/13/21 CHEST 1 VIEW, AP/PA ONLY INDICATION: Cough AP view of the chest is obtained with comparison made to study of 08/23/2020 There has been an increase in mixed interstitial and alveolar densities throughout the lungs. There is decreased inspiratory result. No pneumothorax identified. Left anterior chest wall port remains in stable position. IMPRESSION: Increasing bilateral pulmonary opacity which may be due to edema or pneumonitis. No focal consolidation, discrete mass or pneumothorax is appreciated. Dictated on workstation # [id number] Dict: 01/13/[id number] Trans: 01/13/212043 [facility] [id number] Interpreted by: JULIUS SANDERS MD Electronically signed by: Departure Communication (Admissions) 2044-spoke with Dr. Burns. Will admit. Spoke with Dr. Nevarez from heme-onc. He recommends 480 mcg of Granix subcutaneous now and daily. Spoke with ICU physician from [facility], agrees with Decadron and remdesivir. We will do some prophylactic Lovenox as well. Given the hypoxia at 89% on room air as well as Covid and cancer I am going to go ahead and get CT angio chest. Impression Primary Impression: COVID-19 Additional Impressions: Breast cancer, right Febrile neutropenia Hypoxia Disposition: HOME, SELF-CARE Condition: Stable Departure-Patient Inst. Referrals: CHARLIE PAZ DO (PCP/Family) Primary Care Physician VINAYAK RAYA APRN Jan 13, 2021 19:17
[2021-01-13 19:35] LABS: BASOPHILS % (AUTO) 1 % (0-10); EOSINOPHILS % (AUTO) 0 % (0-10); HEMATOCRIT 32 % (35-52); HEMOGLOBIN 10.2 g/dL (11.5-16.0); LYMPHOCYTES # (AUTO) 0.2 10^3/uL (1.0-4.0); LYMPHOCYTES % (AUTO) 16 % (12-44); MEAN CORPUSCULAR HEMOGLOBIN 32 pg (25-34); MEAN CORPUSCULAR HGB CONC 32 g/dL (32-36); MEAN CORPUSCULAR VOLUME 100 fL (80-99); MEAN PLATELET VOLUME 11.7 fL (9.0-12.2); MONOCYTES # (AUTO) 0.1 10^3/uL (0.0-1.0); MONOCYTES % (AUTO) 6 % (0-12); NEUTROPHILS # (AUTO) 0.9 10^3/uL (1.8-7.8); NEUTROPHILS % (AUTO) 76 % (42-75); PLATELET COUNT 93 10^3/uL (130-400)
[2021-01-13] MEDS: LACTATED RINGERS 1,000 ML IV SCH ×2 (19:35→20:59)
[2021-01-13 19:37] LABS: WHITE BLOOD COUNT 1.2 10^3/uL (4.3-11.0)
[2021-01-13 19:44] LABS: INR 0.9 (0.8-1.4); PROTHROMBIN TIME PATIENT 12.9 SEC (12.2-14.7)
[2021-01-13] MEDS ORDERED: CEFEPIME INJECTION 2,000 MG in WATER (STERILE) FOR INJECTION 20 ML IV ONE (19:45)
[2021-01-13 20:02] LABS: ALANINE AMINOTRANSFERASE 51 U/L (0-55); ALBUMIN 3.3 GM/DL (3.2-4.5); ALKALINE PHOSPHATASE 52 U/L (40-136); BILIRUBIN,TOTAL 0.7 MG/DL (0.1-1.0); BUN/CREATININE RATIO 11; CALCIUM 8.2 MG/DL (8.5-10.1); CARBON DIOXIDE 26 MMOL/L (21-32); CHLORIDE 99 MMOL/L (98-107); CREATININE SERUM 0.79 MG/DL (0.60-1.30); GFR ESTIMATED > 60; GLUCOSE 122 MG/DL (70-105); POTASSIUM 3.1 MMOL/L (3.6-5.0); SODIUM 135 MMOL/L (135-145)
[2021-01-13] MEDS ORDERED: TBO-FILGRASTIM 480 MCG/0.8 ML (GRANIX) SQ SCH (20:45)
--- NOTE | 2021-01-13 20:45 | Diagnostic Imaging Report ---
INDICATION: Cough AP view of the chest is obtained with comparison made to study of 08/23/2020 There has been an increase in mixed interstitial and alveolar densities throughout the lungs. There is decreased inspiratory result. No pneumothorax identified. Left anterior chest wall port remains in stable position. IMPRESSION: Increasing bilateral pulmonary opacity which may be due to edema or pneumonitis. No focal consolidation, discrete mass or pneumothorax is appreciated. Dictated by: Dictated on workstation # [id number]
[2021-01-13] MEDS ORDERED: HYDROcodone/APAP 5 MG/325 MG (LORTAB) TAB PO ONE (21:00)
--- NOTE | 2021-01-13 21:33 | Diagnostic Imaging Report ---
PROCEDURE: CT angiography of the chest with contrast. TECHNIQUE: Multiple contiguous axial images were obtained through the chest after uneventful bolus administration of intravenous contrast. 3D reconstructed CTA MIP acquisitions were also performed. Auto Exposure Controls were utilized during the CT exam to meet ALARA standards for radiation dose reduction. INDICATION: Cough and fever COMPARISON: 06/11/2020 There is good opacification of pulmonary arteries without intraluminal filling defect to indicate embolism. Thoracic aorta is also unremarkable in appearance. There has been development of patchy peripheral interstitial and groundglass densities in both lungs. No lobar consolidation is identified. There is no significant pleural or pericardial fluid. Occasional mildly prominent mediastinal lymph nodes have not significantly changed. No new mass or infiltrate is identified. There is low-density throughout the liver indicating hepatic steatosis. IMPRESSION: No CTA evidence of pulmonary embolism. There has been development of mixed interstitial and alveolar densities throughout the lungs likely related to pneumonitis or possible edema. Clinical correlation is recommended. Dictated by: Dictated on workstation # [id number]
[2021-01-13 21:37] LABS: BILIRUBIN,URINE NEGATIVE (NEGATIVE); CLARITY,URINE CLEAR; GLUCOSE, URINE (UA) NEGATIVE (NEGATIVE); KETONES,URINE 1+ (NEGATIVE); LEUKOCYTE ESTERASE ,URINE NEGATIVE (NEGATIVE); NITRITE,URINE NEGATIVE (NEGATIVE); PH,URINE 6.5 (5-9); PROTEIN,URINE 1+ (NEGATIVE)
[2021-01-13 21:41] LABS: COLOR,URINE DARK YELLOW
[2021-01-13 21:43] LABS: BACTERIA,URINE TRACE /HPF; RBC,URINE RARE /HPF; SQUAMOUS EPITHELIAL CELL,UR 0-2 /HPF; WBC,URINE RARE /HPF
[2021-01-13] MEDS ORDERED: NS W/KCL 40 MEQ/L 1,000 ML IV ONE (22:29)
[2021-01-13] MEDS ORDERED: IBUPROFEN 600 MG (MOTRIN) TAB PO PRN (22:45)
[2021-01-13] MEDS ORDERED: NS W/KCL 40 MEQ/L 1,000 ML IV SCH (22:45)
[2021-01-13 23:12] LABS: ABG BASE EXCESS 3.4 MMOL/L (-2.5-2.5); ABG OXYGEN SATURATION 97 % (94-100); ABG PCO2 40 MMHG (35-45); ABG PH 7.45 (7.37-7.43); ABG PO2 85 MMHG (79-93); ABG TCO2 28.2 MMOL/L (21.0-31.0)
[2021-01-13 23:13] LABS: ALLENS TEST YES-POS; INSPIRED O2 1L NC; PATIENT TEMP 37.7; VENTILATOR NO
[2021-01-14] MEDS: CEFEPIME 1,000 MG/SWFI 10 ML IV PUSH IV SCH ×8 (01:33→19:43)
[2021-01-14 02:14] LABS: BASOPHILS % (AUTO) 1 % (0-10); EOSINOPHILS % (AUTO) 0 % (0-10); HEMOGLOBIN 8.3 g/dL (11.5-16.0); NEUTROPHILS # (AUTO) 0.7 10^3/uL (1.8-7.8)
[2021-01-14 02:16] LABS: HEMATOCRIT 26 % (35-52); LYMPHOCYTES # (AUTO) 0.2 10^3/uL (1.0-4.0); LYMPHOCYTES % (AUTO) 22 % (12-44); MEAN CORPUSCULAR HEMOGLOBIN 32 pg (25-34); MEAN CORPUSCULAR HGB CONC 32 g/dL (32-36); MEAN CORPUSCULAR VOLUME 100 fL (80-99); MEAN PLATELET VOLUME 11.3 fL (9.0-12.2); MONOCYTES # (AUTO) 0.1 10^3/uL (0.0-1.0); MONOCYTES % (AUTO) 7 % (0-12); NEUTROPHILS % (AUTO) 68 % (42-75); PLATELET COUNT 81 10^3/uL (130-400)
[2021-01-14 02:18] LABS: CHLORIDE 105 MMOL/L (98-107); POTASSIUM 4.9 MMOL/L (3.6-5.0); SODIUM 136 MMOL/L (135-145)
[2021-01-14 02:20] LABS: GLUCOSE 121 MG/DL (70-105)
[2021-01-14 02:21] LABS: CARBON DIOXIDE 23 MMOL/L (21-32)
[2021-01-14 02:24] LABS: CREATININE SERUM 0.77 MG/DL (0.60-1.30); GFR ESTIMATED > 60; PHOSPHORUS 2.6 MG/DL (2.3-4.7)
[2021-01-14 02:25] LABS: BUN/CREATININE RATIO 12
[2021-01-14 02:26] LABS: MAGNESIUM 1.6 MG/DL (1.6-2.4)
[2021-01-14 02:36] LABS: SMEAR SCAN COMMENT YES
[2021-01-14] MEDS ORDERED: ONDA4TAB11 PO (04:16)
[2021-01-14] MEDS ORDERED: TRIA1TAB3 PO (04:16)
[2021-01-14] MEDS ORDERED: PANT40TA52 PO (04:16)
[2021-01-14] MEDS ORDERED: ACHD5005 PO ×2 (04:16→14:12)
--- NOTE | 2021-01-14 05:25 | Pulmonary Consultation ---
History of Present Illness History of Present Illness Date Seen by Provider: Jan 14, 2021 Time Seen by Provider: 05:20 Date of Admission Allergies and Home Medications Allergies Coded Allergies: No Known Drug Allergies (Unverified , 11/18/15) Home Medications Metoprolol Succinate 25 Mg Tab.er.24h, 25 MG PO HS, (Reported) Ondansetron 4 Mg Tab.rapdis, 4 MG PO Q8H PRN for NAUSEA-1ST LINE, (Reported) Pantoprazole Sodium 40 Mg Tablet.dr, 40 MG PO DAILY, (Reported) Past Lodtbol-Blnocm-Gzjzrt Hx Patient Social History Alcohol Use: Denies Use Smoking Status: Never a Smoker 2nd Hand Smoke Exposure: No Recent Infectious Disease Expo: No Recent Hopitalizations: No Have you traveled recently?: No Alcohol Use?: No Immunizations Up To Date Date of Influenza Vaccine: Jul 04, 2020 Seasonal Allergies Seasonal Allergies: Yes Past Medical History Surgeries: Yes (R breast lumpectomy, DXLS) Gallbladder Respiratory: No Currently Using CPAP: No Currently Using BIPAP: No Cardiac: Yes (STRESS/CAFFIENE INDUCED BYGEMINY/TRIGEMINY) Hypertension Neurological: No Genitourinary: No Gastrointestinal: No Musculoskeletal: No Endocrine: No HEENT: No Cancer: Yes Breast What Type of Treatment Did You: Surgical Intervention Psychosocial: Yes Depression Integumentary: No Blood Disorders: No Review of Systems Time Seen by Provider: 05:26 Sepsis Event Evaluation Height, Weight, BMI Height: 5'8.00" Weight: 240lbs. oz. 108.892420im; 36.34 BMI Method:Stated Exam Exam Vital Signs Date Time Temp Pulse Resp B/P (MAP) Pulse Ox O2 Delivery O2 Flow Rate FiO2 01/14/21 04:15 61 9 92/47 (62) 97 Nasal Cannula 1.00 01/14/21 03:45 61 13 87/44 (58) 94 Nasal Cannula 1.00 01/14/21 02:45 68 12 94/50 (65) 95 Nasal Cannula 1.00 01/14/21 01:35 36.2 01/14/21 01:15 63 12 103/49 (67) 99 Nasal Cannula 1.00 01/14/21 01:00 70 01/14/21 00:00 Nasal Cannula 1.00 01/14/21 00:00 69 12 95/52 (66) 95 Nasal Cannula 1.00 01/13/21 23:30 70 19 101/52 (65) 92 Nasal Cannula 1.00 01/13/21 23:15 73 9 99/53 (66) 95 Nasal Cannula 1.00 01/13/21 23:00 67 13 99/50 (68) 97 Nasal Cannula 1.00 01/13/21 22:55 95 Nasal Cannula 1.00 01/13/21 22:45 95 Nasal Cannula 1.00 01/13/21 22:45 74 90/51 (68) 97 Nasal Cannula 2.00 01/13/21 22:30 76 01/13/21 22:30 75 111/52 (69) 97 Nasal Cannula 2.00 01/13/21 22:25 37.7 70 20 105/62 (76) 97 Nasal Cannula 2.00 01/13/21 22:13 37.8 81 18 104/57 99 Nasal Cannula 01/13/21 21:28 95 Nasal Cannula 2.00 01/13/21 18:56 39.8 90 20 121/68 (85) 89 Room Air I & O 01/14/21 07:00 Intake Total 50 ml Balance 50 ml Height & Weight Height: 5'8.00" Weight: 240lbs. oz. 108.025106mt; 36.34 BMI Method:Stated Capillary Refill: Less Than 3 Seconds Gastrointestinal: normal bowel sounds, non tender Results Lab Laboratory Tests 01/13/21 19:24 01/14/21 01:45 Assessment/Plan Assessment/Plan COVID -Dx 01/13 symptoms started 01/11 -Decadron 6mg daily -Remdesivir started per EICU -PCT -Pt is only on 1liter - Pancytopenia -Oncology following Anemia with thrombocytopenia -Monitor Breast cancer, right hx -Currently undergoing chemo Febrile neutropenia Hypoxia BRISSA SEGOVIA DO Jan 14, 2021 05:25
[2021-01-14] MEDS ORDERED: LACTATED RINGERS 1,000 ML IV SCH (05:30)
--- NOTE | 2021-01-14 05:57 | Diagnostic Imaging Report ---
Portable erect AP chest at 406 hours. INDICATION: Hypoxia, Covid-19. FINDINGS: The heart size is within normal limits and stable when compared to 01/13/2021. Both lungs do seem somewhat better aerated than on the prior exam. There are still residual alveolar/interstitial pulmonary infiltrates bilaterally. There is no significant pleural effusion identified. The mediastinum is not widened. The osseous structures are intact. The central venous catheter on the left is unchanged in position. IMPRESSION: The appearance of the chest has improved somewhat since the prior exam as both lungs do seem slightly better aerated. A follow-up study would be recommended for continued evaluation. Dictated by: Dictated on workstation # [id number]
[2021-01-14] MEDS: dexAMETHasone 6 MG TAB (DECADRON) PO SCH (06:30)
[2021-01-14] MEDS: LACTATED RINGERS 1,000 ML IV SCH ×3 (06:32→19:43)
[2021-01-14] MEDS ORDERED: REMDESIVIR INJ 200 MG in NS (IVPB) 210 ML IV NR (08:00)
[2021-01-14] MEDS: ENOXAPARIN 40 MG/0.4 ML (LOVENOX) SYR SC SCH (09:26)
[2021-01-14] MEDS: TBO-FILGRASTIM 480 MCG/0.8 ML (GRANIX) SQ SCH (09:26)
[2021-01-14] MEDS: ONDANSETRON 4 MG/2 ML (SDV) Z0FRAN IVP PRN (09:37)
[2021-01-14] MEDS: HYDROcodone/APAP 5 MG/325 MG (LORTAB) TAB PO PRN ×2 (09:42→19:45)
[2021-01-14] MEDS ORDERED: PROM473S9 PO (14:12)
[2021-01-14] MEDS ORDERED: IBUP-2473 PO (14:12)
[2021-01-14] MEDS ORDERED: ONDA8TAB15 PO (14:12)
[2021-01-14] MEDS ORDERED: TBO-FILGRASTIM 480 MCG/0.8 ML (GRANIX) SQ SCH (21:00)
[2021-01-14] MEDS ORDERED: NS IV 500 ML 500 ML ONE (22:33)
[2021-01-14 22:54] VITALS: BP 123/70
[2021-01-14] MEDS ORDERED: REMDESIVIR INJ 100 MG in NS (IVPB) 230 ML IV SCH (23:00)
[2021-01-14 23:21] VITALS: BP 117/62
--- NOTE | 2021-01-15 01:29 | CONSULTATION REPORT ---
DATE OF SERVICE: The patient is admitted to ICU bed 8. PHYSICIAN REQUESTING CONSULTATION: Flower Burns DO IMPRESSION: 1. A 50-year-old female admitted to the hospital with high fever and dyspnea on exertion. COVID-19 testing positive. 2. 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 ER positive, MI positive, HER-2/erica negative tumor with Oncotype DX Recurrence Score of 41. 3. Currently on adjuvant chemotherapy and the patient has completed AC regimen x4 cycles. She was on weekly chemotherapy with paclitaxel and took week 8 of chemotherapy on 01/09/2021. 4. Pancytopenia with a grade III neutropenia. RECOMMENDATIONS: 1. Agree with management of COVID-19 as you are doing. 2. We will hold further chemotherapy until she has recovered from COVID-19. 3. Start the patient on G-CSF 480 mcg subcutaneously daily because of grade III neutropenia. 4. Continue prophylactic dose Lovenox because of the risk of thrombosis. Platelet count is slightly below normal at 81,000 today and will continue to monitor this serially. 5. Monitor CBC daily along with other lab work. 6. We will follow the patient with you. BRIEF HISTORY: The patient is a 50-year-old female with stage IIA intermediate to high-grade right breast cancer who underwent a lumpectomy and sentinel lymph node biopsy in late 07/2020. Her Oncotype DX Recurrence Score was 41 and she was started on adjuvant chemotherapy. She completed four cycles of treatment with Adriamycin and Cytoxan regimen. Currently, she is on weekly paclitaxel chemotherapy with the last dose administered on 01/09/2021 which was week 8 of chemotherapy. She came to the emergency room last evening with a fever of 103 degree Fahrenheit and was positive for COVID-19 on screening. She is admitted to the ICU because of hypoxia at the time of evaluation. She is feeling better and is only on oxygen at 1 liter by nasal cannula to maintain her oxygen saturation to normal level. She was noted to be pancytopenic and an oncology consultation was requested for concurrent followup. PAST MEDICAL HISTORY: Significant for stage IIA breast cancer as mentioned in the history of present illness. She has occasional palpitation and history of bigeminy/trigeminy in the past. Other surgeries include lumpectomy and sentinel lymph node biopsy as mentioned above and a cholecystectomy. He has previous history of depression also. SOCIAL HISTORY: The patient is and lives in [place], [place]. She has three children, two sons and a daughter. Her older son lives close by and younger son is in college in [place]. Her daughter lives in [place]. 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 She denied any tobacco or recreational drug use and uses alcohol socially averaging less than 1 drink a month. FAMILY HISTORY: Significant for paternal grandfather, who was diagnosed with prostate cancer at the age of 75 years and esophageal cancer at 80 years. Paternal aunt, breast cancer in her mid 60s. No other malignancies in the family. Both her parents and grandparents had coronary artery disease. Mother, grandmother and sister have hypertension. Her father, grandfather and sister is diabetic. PHYSICAL EXAMINATION: GENERAL: Today showed a middle-aged female, moderately obese, awake and oriented, in no acute distress. VITAL SIGNS: She was afebrile, pulse rate of 73, respirations 19, blood pressure 119/65 with oxygen saturation of 95% on 1 liter of oxygen by nasal cannula. HEENT: Normocephalic with alopecia. Extraocular muscles intact, conjunctivae slightly pale, oral mucosa moist. NECK: Supple, with no JVD. No cervical, supraclavicular or axillary lymphadenopathy palpable. CHEST: Symmetrical with port present. LUNGS: Fairly clear to auscultation without wheezes or rales. CARDIOVASCULAR: Regular in rate and rhythm with occasional missed beats. ABDOMEN: Soft, nontender with no hepatosplenomegaly or other masses palpable. EXTREMITIES: Showed no edema or petechiae. NEUROLOGIC: Showed no focal motor deficits. LABORATORY DATA: CBC done last night showed WBC 1.0, hemoglobin 8.3, platelet count 81,000 with neutrophil count 0.7. Chemistry panel done last evening showed potassium level of 3.1 with rest of the electrolytes within normal limits. BUN was 9 and creatinine 0.79 with GFR more than 60 mL per minute. Liver function studies showed AST elevated at 61 with rest of the liver function studies within normal limits. Influenza A and B screen was negative. Chest x-ray showed increasing bilateral pulmonary opacity, without focal consolidation. COVID-19 testing was positive. Thank you for allowing me to participate in this patient's care. I will follow the patient with you and make appropriate recommendations. Job ID: [id number] DocumentID: [id number] Dictated Date: 01/14/2021 18:08:14 Health Policy Manager Date: 01/15/2021 01:28:01 Dictated By: FLAVIO WILKES MD
[2021-01-15 01:34] VITALS: BP 121/65
[2021-01-15 01:55] LABS: CHLORIDE 103 MMOL/L (98-107); POTASSIUM 3.6 MMOL/L (3.6-5.0); SODIUM 138 MMOL/L (135-145)
[2021-01-15 01:56] LABS: CALCIUM 8.2 MG/DL (8.5-10.1)
[2021-01-15 01:57] LABS: GLUCOSE 139 MG/DL (70-105)
[2021-01-15 01:58] LABS: CARBON DIOXIDE 24 MMOL/L (21-32)
[2021-01-15 02:00] LABS: PHOSPHORUS 2.7 MG/DL (2.3-4.7)
[2021-01-15] MEDS: CEFEPIME 1,000 MG/SWFI 10 ML IV PUSH IV SCH ×8 (02:00→20:23)
[2021-01-15 02:01] LABS: BUN/CREATININE RATIO 13; CREATININE SERUM 0.72 MG/DL (0.60-1.30); GFR ESTIMATED > 60
[2021-01-15 02:03] LABS: BASOPHILS % (AUTO) 0 % (0-10); EOSINOPHILS % (AUTO) 0 % (0-10); MAGNESIUM 1.6 MG/DL (1.6-2.4); MEAN CORPUSCULAR HEMOGLOBIN 32 pg (25-34)
[2021-01-15 02:05] LABS: HEMATOCRIT 33 % (35-52); HEMOGLOBIN 10.5 g/dL (11.5-16.0); LYMPHOCYTES # (AUTO) 0.2 10^3/uL (1.0-4.0); LYMPHOCYTES % (AUTO) 5 % (12-44); MEAN CORPUSCULAR HGB CONC 32 g/dL (32-36); MEAN CORPUSCULAR VOLUME 99 fL (80-99); MEAN PLATELET VOLUME 11.7 fL (9.0-12.2); MONOCYTES # (AUTO) 0.4 10^3/uL (0.0-1.0); MONOCYTES % (AUTO) 7 % (0-12); NEUTROPHILS # (AUTO) 3.9 10^3/uL (1.8-7.8); NEUTROPHILS % (AUTO) 77 % (42-75); PLATELET COUNT 87 10^3/uL (130-400); WHITE BLOOD COUNT 5.1 10^3/uL (4.3-11.0)
--- NOTE | 2021-01-15 05:02 | Pulmonary Progress Note ---
Subjective Time Seen by a Provider: 05:02 Sepsis Event Evaluation Height, Weight, BMI Height: 5'8.00" Weight: 240lbs. oz. 108.140266dt; 36.34 BMI Method:Stated Focused Exam Lactate Level 01/13/21 19:24: Lactic Acid Level 0.94 Exam Exam Vital Signs Date Time Temp Pulse Resp B/P (MAP) Pulse Ox O2 Delivery O2 Flow Rate FiO2 01/15/21 04:00 96 Nasal Cannula 1.00 01/15/21 04:00 60 16 122/60 (84) 93 Nasal Cannula 1.00 01/15/21 03:00 65 15 112/66 (83) 95 Nasal Cannula 1.00 01/15/21 02:00 64 16 105/65 (78) 93 Nasal Cannula 1.00 01/15/21 01:34 36.7 61 17 121/65 96 Nasal Cannula 1.00 01/15/21 01:00 62 14 105/60 (75) 95 Nasal Cannula 1.00 01/15/21 01:00 62 01/15/21 00:00 36.8 01/15/21 00:00 64 20 120/67 (84) 92 Nasal Cannula 1.00 01/14/21 23:59 94 Nasal Cannula 1.00 01/14/21 23:21 36.8 68 15 117/62 95 Nasal Cannula 1.00 01/14/21 23:00 63 16 129/80 (96) 95 Nasal Cannula 1.00 01/14/21 22:54 36.7 71 15 123/70 94 Nasal Cannula 1.00 01/14/21 22:00 82 27 131/70 (90) 96 Nasal Cannula 1.00 01/14/21 21:00 68 17 119/65 (83) 97 Nasal Cannula 1.00 01/14/21 20:00 94 Nasal Cannula 1.00 01/14/21 20:00 36.7 01/14/21 20:00 66 11 117/65 (82) 93 Nasal Cannula 1.00 01/14/21 19:00 66 10 122/63 (82) 95 Nasal Cannula 1.00 01/14/21 19:00 66 01/14/21 18:00 73 17 122/74 (90) 95 Nasal Cannula 1.00 01/14/21 17:00 73 19 119/65 (83) 95 Nasal Cannula 1.00 01/14/21 16:00 Nasal Cannula 1.00 01/14/21 16:00 76 10 129/75 (93) 96 Nasal Cannula 1.00 01/14/21 15:00 62 10 115/60 (78) 95 Nasal Cannula 1.00 01/14/21 14:00 56 11 103/56 (72) 95 Nasal Cannula 1.00 01/14/21 13:00 57 13 96/61 (73) 95 Nasal Cannula 1.00 01/14/21 13:00 51 01/14/21 12:50 Nasal Cannula 1.00 01/14/21 12:00 61 12 99/52 (68) 94 Nasal Cannula 1.00 01/14/21 11:00 54 14 110/59 (76) 94 Nasal Cannula 1.00 01/14/21 10:05 95 Nasal Cannula 1.00 01/14/21 10:00 76 22 115/64 (81) 93 Nasal Cannula 1.00 01/14/21 09:00 70 14 104/55 (71) 93 Nasal Cannula 1.00 01/14/21 08:30 Nasal Cannula 1.00 01/14/21 08:00 54 9 95/59 (71) 95 Nasal Cannula 1.00 01/14/21 07:00 61 11 88/49 (62) 96 Nasal Cannula 1.00 01/14/21 06:43 66 01/14/21 06:15 60 12 95/56 (69) 97 Nasal Cannula 1.00 01/14/21 05:45 58 10 95/53 (67) 96 Nasal Cannula 1.00 I & O 01/15/21 07:00 Intake Total 2700 ml Output Total 2000 ml Balance 700 ml Height & Weight Height: 5'8.00" Weight: 240lbs. oz. 108.546865um; 36.34 BMI Method:Stated General Appearance: No Apparent Distress, WD/WN HEENT: PERRL/EOMI, TMs Normal, Pharynx Normal Neck: Full Range of Motion, Non Tender, Supple Respiratory: Chest Non Tender, Lungs Clear, Normal Breath Sounds, No Accessory Muscle Use, No Respiratory Distress, Decreased Breath Sounds Cardiovascular: Regular Rate, Rhythm Capillary Refill: Less Than 3 Seconds Gastrointestinal: normal bowel sounds, non tender Extremity: Normal Capillary Refill, Normal Inspection Neurologic/Psychiatric: Alert, Oriented x3 Skin: Normal Color, Warm/Dry Results Lab Laboratory Tests 4/12/21 19:24 01/14/21 01:45 01/15/21 01:32 Assessment/Plan Assessment/Plan COVID -Requiring minimal oxygen -Dx 01/13 symptoms started 01/11 -Decadron 6mg daily -Remdesivir started per EICU -s/p PCT -Pt is only on 1liter - Pancytopenia -Oncology following Anemia with thrombocytopenia -Monitor Breast cancer, right hx -Currently undergoing chemo -Oncology following BRISSA SEGOVIA DO Jan 15, 2021 05:02
[2021-01-15] MEDS ORDERED: POTASSIUM PHOSPHATE INJ 15 MM in NS (IVPB) 250 ML IV ONE (05:15)
[2021-01-15] MEDS ORDERED: PROMETHAZINE/ CODEINE SYRUP 5 ML UDC PO PRN (05:15)
[2021-01-15] MEDS ORDERED: KCL 20 MEQ TAB (K-DUR) PO SCH (06:00)
[2021-01-15] MEDS ORDERED: MAGNESIUM 1 GM/100 ML IVPB 100 ML IV SCH (06:00)
[2021-01-15] MEDS ORDERED: POTASSIUM CL 10MEQ/50ML IVPB 50 ML IV SCH (06:00)
[2021-01-15] MEDS: POTASSIUM CL 10MEQ/50ML IVPB 50 ML IV SCH (06:01)
[2021-01-15] MEDS: MAGNESIUM 1 GM/100 ML IVPB 100 ML IV SCH (06:01)
--- NOTE | 2021-01-15 07:35 | Diagnostic Imaging Report ---
INDICATION: COVID pneumonia. Hypoxia Upright portable chest shows normal heart size and vascularity. There are bilateral infiltrates which may be slightly worse compared to the 01/14/21 study. There is no effusion or pneumothorax. Port-A-Cath is present. IMPRESSION: There are persistent infiltrates which may be slightly worse compared to the prior exam. Report was faxed to Toan Heller/RN Infection Control by lory at 7:34AM. Dictated by: Dictated on workstation # [id number]
[2021-01-15] MEDS: ENOXAPARIN 40 MG/0.4 ML (LOVENOX) SYR SC SCH (09:15)
[2021-01-15] MEDS: dexAMETHasone 6 MG TAB (DECADRON) PO SCH (09:16)
[2021-01-15] MEDS: REMDESIVIR INJ 100 MG in NS (IVPB) 230 ML IV SCH (09:23)
[2021-01-15] MEDS: ONDANSETRON 4 MG/2 ML (SDV) Z0FRAN IVP PRN (09:23)
[2021-01-15] MEDS: TBO-FILGRASTIM 480 MCG/0.8 ML (GRANIX) SQ SCH (09:23)
[2021-01-15 16:00] VITALS: BP 123/76
[2021-01-15] MEDS: HYDROcodone/APAP 5 MG/325 MG (LORTAB) TAB PO PRN (18:40)
[2021-01-15 20:18] VITALS: BP 134/84
[2021-01-15 23:59] VITALS: BP 103/67
[2021-01-16] MEDS: CEFEPIME 1,000 MG/SWFI 10 ML IV PUSH IV SCH ×8 (01:42→20:07)
[2021-01-16 04:00] VITALS: BP 105/71
[2021-01-16 04:53] LABS: BASOPHILS # (AUTO) 0.1 10^3/uL (0.0-0.1); BASOPHILS % (AUTO) 1 % (0-10); EOSINOPHILS % (AUTO) 0 % (0-10); HEMATOCRIT 29 % (35-52); HEMOGLOBIN 9.2 g/dL (11.5-16.0); LYMPHOCYTES # (AUTO) 0.5 10^3/uL (1.0-4.0); LYMPHOCYTES % (AUTO) 4 % (12-44); MEAN CORPUSCULAR HEMOGLOBIN 32 pg (25-34); MEAN CORPUSCULAR HGB CONC 32 g/dL (32-36); MEAN CORPUSCULAR VOLUME 101 fL (80-99); MEAN PLATELET VOLUME 11.9 fL (9.0-12.2); MONOCYTES % (AUTO) 7 % (0-12); NEUTROPHILS # (AUTO) 10.1 10^3/uL (1.8-7.8); NEUTROPHILS % (AUTO) 71 % (42-75); PLATELET COUNT 153 10^3/uL (130-400); WHITE BLOOD COUNT 14.3 10^3/uL (4.3-11.0)
[2021-01-16 05:00] LABS: BUN/CREATININE RATIO 14; CALCIUM 7.7 MG/DL (8.5-10.1); CARBON DIOXIDE 23 MMOL/L (21-32); CHLORIDE 104 MMOL/L (98-107); CREATININE SERUM 0.77 MG/DL (0.60-1.30); GFR ESTIMATED > 60; GLUCOSE 138 MG/DL (70-105); MAGNESIUM 1.9 MG/DL (1.6-2.4); PHOSPHORUS 3.2 MG/DL (2.3-4.7); POTASSIUM 3.9 MMOL/L (3.6-5.0); SODIUM 140 MMOL/L (135-145)
[2021-01-16] MEDS: dexAMETHasone 6 MG TAB (DECADRON) PO SCH (06:35)
[2021-01-16 08:00] VITALS: BP 121/77
[2021-01-16] MEDS: REMDESIVIR INJ 100 MG in NS (IVPB) 230 ML IV SCH (09:11)
[2021-01-16] MEDS: ACETAMINOPHEN 325 MG TABLET PO PRN (09:12)
[2021-01-16] MEDS: ENOXAPARIN 40 MG/0.4 ML (LOVENOX) SYR SC SCH (09:12)
[2021-01-16 12:00] VITALS: BP 112/72
--- NOTE | 2021-01-16 12:00 | Progress Note - Hospitalist ---
Subjective HPI/CC On Admission Date Seen by Provider: Jan 16, 2021 Time Seen by Provider: 10:25 Subjective/Events-last exam She is feeling a little bit more short of breath today. She started having a worsening cough since last night. She denies fevers and chills. She denies chest pain. She has been eating and drinking without issue. Focused Exam Lactate Level 01/13/21 19:24: Lactic Acid Level 0.94 Objective Exam Vital Signs Vital Signs Date Time Temp Pulse Resp B/P (MAP) Pulse Ox O2 Delivery O2 Flow Rate FiO2 01/16/21 09:00 Nasal Cannula 0.50 01/16/21 08:00 35.1 61 18 121/77 (92) 90 Capillary Refill : Less Than 3 Seconds General Appearance: No Apparent Distress, Obese Respiratory: Lungs Clear, Normal Breath Sounds, No Respiratory Distress Cardiovascular: Regular Rate, Rhythm, No Edema, No Murmur Gastrointestinal: Normal Bowel Sounds, Non Tender, Soft Extremity: Normal Inspection, Non Tender, No Pedal Edema Neurologic/Psychiatric: Alert, Oriented x3, No Motor/Sensory Deficits, Normal Mood/Affect Skin: Normal Color, Warm/Dry Results/Procedures Lab Laboratory Tests 01/16/21 04:30 Patient resulted labs reviewed. Imaging: Reviewed Imaging Report Assessment/Plan Assessment and Plan Assess & Plan/Chief Complaint Acute respiratory failure due to COVID-19 Pneumonia Febrile neutropenia Continue Decadron Continue Remdesivir, day 3/5 s/p 1 unit convalescent plasma Continue Cefepime Continue supplemental oxygen as needed Pancytopenia due to chemotherapy Stage 2 breast cancer Oncology following s/p lumpectomy Receiving adjuvant chemotherapy outpatient s/p G-CSF, cell lines increasing DVT prophylaxis: Lovenox Diagnosis/Problems Diagnosis/Problems (1) Acute respiratory failure due to COVID-19 Status: Acute (2) PNA (pneumonia) Status: Acute (3) Breast cancer, stage 2 Status: Acute Qualifiers: Laterality: right Qualified Codes: C50.911 - Malignant neoplasm of unspecified site of right female breast (4) Pancytopenia due to chemotherapy Status: Acute (5) Febrile neutropenia Status: Acute CHRISTEN MICHAELS MD Jan 16, 2021 12:00
[2021-01-16 16:00] VITALS: BP 119/79
[2021-01-16] MEDS: HYDROcodone/APAP 5 MG/325 MG (LORTAB) TAB PO PRN (20:07)
[2021-01-16 20:12] VITALS: BP 121/77
[2021-01-16 23:25] VITALS: BP 104/66
[2021-01-17] MEDS: CEFEPIME 1,000 MG/SWFI 10 ML IV PUSH IV SCH ×8 (02:50→20:56)
[2021-01-17 03:00] VITALS: BP 100/59
[2021-01-17] MEDS: dexAMETHasone 6 MG TAB (DECADRON) PO SCH (06:28)
[2021-01-17 06:47] LABS: BASOPHILS # (AUTO) 0.2 10^3/uL (0.0-0.1); BASOPHILS % (AUTO) 1 % (0-10); EOSINOPHILS % (AUTO) 0 % (0-10); HEMATOCRIT 29 % (35-52); LYMPHOCYTES # (AUTO) 0.9 10^3/uL (1.0-4.0); LYMPHOCYTES % (AUTO) 5 % (12-44); MEAN CORPUSCULAR HEMOGLOBIN 32 pg (25-34); MEAN CORPUSCULAR HGB CONC 31 g/dL (32-36); MEAN CORPUSCULAR VOLUME 102 fL (80-99); MEAN PLATELET VOLUME 11.3 fL (9.0-12.2); MONOCYTES # (AUTO) 1.6 10^3/uL (0.0-1.0); MONOCYTES % (AUTO) 9 % (0-12); NEUTROPHILS % (AUTO) 81 % (42-75); PLATELET COUNT 185 10^3/uL (130-400); WHITE BLOOD COUNT 18.4 10^3/uL (4.3-11.0)
[2021-01-17 06:58] LABS: CHLORIDE 103 MMOL/L (98-107); POTASSIUM 3.3 MMOL/L (3.6-5.0); SODIUM 140 MMOL/L (135-145)
[2021-01-17 07:00] LABS: GLUCOSE 140 MG/DL (70-105)
[2021-01-17 07:02] LABS: CARBON DIOXIDE 25 MMOL/L (21-32)
[2021-01-17 07:04] LABS: ANISOCYTOSIS SLIGHT; BAND NEUTROPHILS 4 %; BASOPHILS % (MANUAL) 0 %; EOSINOPHILS % (MANUAL) 0 %; GFR ESTIMATED > 60; LYMPHOCYTES % (MANUAL) 4 %; MONOCYTES % (MANUAL) 8 %; NEUTROPHILS % (MANUAL) 84 %; NUCLEATED RED BLOOD CELLS 3; PHOSPHORUS 3.7 MG/DL (2.3-4.7); POLYCHROMASIA SLIGHT
[2021-01-17 07:05] LABS: BUN/CREATININE RATIO 23
[2021-01-17 07:06] LABS: MAGNESIUM 1.8 MG/DL (1.6-2.4)
[2021-01-17 08:00] VITALS: BP 125/61
[2021-01-17] MEDS: ENOXAPARIN 40 MG/0.4 ML (LOVENOX) SYR SC SCH (09:44)
[2021-01-17] MEDS: REMDESIVIR INJ 100 MG in NS (IVPB) 230 ML IV SCH (09:44)
[2021-01-17 12:00] VITALS: BP 129/84
[2021-01-17] MEDS: ACETAMINOPHEN 325 MG TABLET PO PRN (14:56)
--- NOTE | 2021-01-17 15:27 | Progress Note - Hospitalist ---
Subjective HPI/CC On Admission Date Seen by Provider: Jan 17, 2021 Time Seen by Provider: 14:00 Subjective/Events-last exam She is feeling a little better. She thinks her cough and breathing are better. She is not having any fevers or chills. Objective Exam Vital Signs Vital Signs Date Time Temp Pulse Resp B/P (MAP) Pulse Ox O2 Delivery O2 Flow Rate FiO2 01/17/21 12:25 69 01/17/21 12:00 36.0 18 129/84 (99) 90 Room Air 01/16/21 09:00 0.50 Capillary Refill : Less Than 3 Seconds General Appearance: No Apparent Distress, Obese Respiratory: Lungs Clear, Normal Breath Sounds, No Respiratory Distress Cardiovascular: Regular Rate, Rhythm, No Edema, No Murmur Gastrointestinal: Normal Bowel Sounds, Non Tender, Soft Extremity: Normal Inspection, Non Tender, No Pedal Edema Neurologic/Psychiatric: Alert, Oriented x3, No Motor/Sensory Deficits, Normal Mood/Affect Skin: Normal Color, Warm/Dry Results/Procedures Lab Laboratory Tests 01/17/21 06:25 Patient resulted labs reviewed. Imaging: Reviewed Imaging Report Assessment/Plan Assessment and Plan Assess & Plan/Chief Complaint Acute respiratory failure due to COVID-19 Pneumonia Febrile neutropenia Continue Decadron Continue Remdesivir, day 4/5 s/p 1 unit convalescent plasma Continue Cefepime Continue supplemental oxygen as needed Perform home oxygen study Pancytopenia due to chemotherapy Stage 2 breast cancer Oncology following s/p lumpectomy Receiving adjuvant chemotherapy outpatient s/p G-CSF, cell lines increased DVT prophylaxis: Lovenox Diagnosis/Problems Diagnosis/Problems (1) Acute respiratory failure due to COVID-19 Status: Acute (2) PNA (pneumonia) Status: Acute (3) Breast cancer, stage 2 Status: Acute Qualifiers: Laterality: right Qualified Codes: C50.911 - Malignant neoplasm of unspecified site of right female breast (4) Pancytopenia due to chemotherapy Status: Acute (5) Febrile neutropenia Status: Acute CHRISTEN MICHAELS MD Jan 17, 2021 15:27
[2021-01-17 16:30] VITALS: BP 124/68
[2021-01-17 19:15] VITALS: BP 124/71
[2021-01-17] MEDS: HYDROcodone/APAP 5 MG/325 MG (LORTAB) TAB PO PRN (21:00)
[2021-01-18 00:03] VITALS: BP 120/73
[2021-01-18 04:00] VITALS: BP 126/62
[2021-01-18 05:47] VITALS: BP 126/65
[2021-01-18] MEDS: dexAMETHasone 6 MG TAB (DECADRON) PO SCH (05:47)
[2021-01-18 05:55] LABS: BASOPHILS # (AUTO) 0.1 10^3/uL (0.0-0.1); BASOPHILS % (AUTO) 1 % (0-10); EOSINOPHILS % (AUTO) 0 % (0-10); HEMATOCRIT 29 % (35-52); LYMPHOCYTES # (AUTO) 0.7 10^3/uL (1.0-4.0); LYMPHOCYTES % (AUTO) 5 % (12-44); MEAN CORPUSCULAR HEMOGLOBIN 32 pg (25-34); MEAN CORPUSCULAR HGB CONC 31 g/dL (32-36); MEAN CORPUSCULAR VOLUME 103 fL (80-99); MONOCYTES # (AUTO) 1.4 10^3/uL (0.0-1.0); MONOCYTES % (AUTO) 11 % (0-12); NEUTROPHILS % (AUTO) 70 % (42-75); PLATELET COUNT 196 10^3/uL (130-400); WHITE BLOOD COUNT 12.9 10^3/uL (4.3-11.0)
[2021-01-18 06:03] LABS: CHLORIDE 103 MMOL/L (98-107); POTASSIUM 3.1 MMOL/L (3.6-5.0); SODIUM 139 MMOL/L (135-145)
[2021-01-18 06:05] LABS: CALCIUM 7.8 MG/DL (8.5-10.1); GLUCOSE 151 MG/DL (70-105)
[2021-01-18 06:07] LABS: CARBON DIOXIDE 25 MMOL/L (21-32)
[2021-01-18 06:09] LABS: CREATININE SERUM 0.78 MG/DL (0.60-1.30); GFR ESTIMATED > 60; PHOSPHORUS 3.7 MG/DL (2.3-4.7)
[2021-01-18 06:10] LABS: BUN/CREATININE RATIO 22
[2021-01-18 06:11] LABS: MAGNESIUM 1.7 MG/DL (1.6-2.4)
[2021-01-18 07:46] VITALS: BP 125/67
[2021-01-18] MEDS: REMDESIVIR INJ 100 MG in NS (IVPB) 230 ML IV SCH (09:21)
[2021-01-18] MEDS: ENOXAPARIN 40 MG/0.4 ML (LOVENOX) SYR SC SCH (09:22)
[2021-01-18 11:21] VITALS: BP 127/78
[2021-01-18 12:21] VITALS: BP 127/78
--- NOTE | 2021-01-18 12:21 | Discharge Summary ---
Discharge Summary Hospital Course Was the Problem List Reviewed?: Yes Problems/Dx: (1) Acute respiratory failure due to COVID-19 Status: Acute (2) PNA (pneumonia) Status: Acute (3) Breast cancer, stage 2 Status: Acute Qualifiers: Qualified Codes: C50.911 - Malignant neoplasm of unspecified site of right female breast (4) Pancytopenia due to chemotherapy Status: Acute (5) Febrile neutropenia Status: Acute Hospital Course Date of Admission: Jan 13, 2021 at 20:43 Admission Diagnosis : Acute respiratory failure due to COVID-19 Family Physician/Provider: Carlo Handley DO Date of Discharge: 01/18/21 Discharge Diagnosis: Acute respiratory failure due to COVID-19, Pancytopenia and febrile neutropenia due to chemotherapy for stage II breast cancer Hospital Course: Kesha Miller is a 50-year-old female with stage II breast cancer status post lumpectomy currently on chemotherapy who presented with fevers and was admitted with febrile neutropenia and pancytopenia. Oncology was consulted and assisted with her care. She is undergoing chemotherapy currently. Her pancytopenia was thought to be due to her chemotherapy regimen. She was started on cefepime for febrile neutropenia. She was also treated with Granix and her cell lines improved. Her work-up also revealed that she was COVID-19 positive. She was started on Decadron and remdesivir. She was transfused 1 unit of convalescent plasma. She required intermittent oxygen supplementation. An oxygen evaluation revealed that she required 2 L with exertion. She was set up with oxygen at the time of discharge. She should follow-up with her primary care physician and oncologist as scheduled. She was discharged home in stable condition. Labs and Pending Lab Test: Laboratory Tests 01/18/21 05:40: White Blood Count 12.9H, Red Blood Count 2.81L, Hemoglobin 9.0L, Hematocrit 29L, Mean Corpuscular Volume 103H, Mean Corpuscular Hemoglobin 32, Mean Corpuscular H emoglobin Concent 31L, Red Cell Distribution Width 16.8H, Platelet Count 196, Mean Platelet Volume 11.0, Immature Granulocyte % (Auto) 13, Neutrophils (%) (Auto) 70, Lymphocytes (%) (Auto) 5L, Monocytes (%) (Auto) 11, Eosinophils (%) (Auto) 0, Basophils (%) (Auto) 1, Neutrophils # (Auto) 9.0H, Lymphocytes # (Auto) 0.7L, Monocytes # (Auto) 1.4H, Eosinophils # (Auto) 0.0, Basophils # (Auto) 0.1, Immature Granulocyte # (Auto) 1.7H, Sodium Level 139, Potassium Level 3.1L, Chloride Level 103, Carbon Dioxide Level 25, Anion Gap 11, Blood Urea Nitrogen 17, Creatinine 0.78, Estimat Glomerular Filtration Rate > 60, BUN/Creatinine Ratio 22, Glucose Level 151H, Calcium Level 7.8L, Phosphorus Level 3.7, Magnesium Level 1.7 Microbiology 01/13/21 MRSA Screen - Final, Complete MRSA not isolated 01/13/21 Blood Culture - Preliminary, Resulted No growth Home Meds Active Reported Ibuprofen 200 Mg Tablet 600 Mg PO Q8H PRN Ondansetron HCl 8 Mg Tablet 8 Mg PO Q8H PRN Promethazine-Codeine Solution (Promethazine HCl/Codeine) 473 Ml Syrup 5-10 Ml PO Q6H PRN Hydrocodone-Acetamin 5-325 mg (Hydrocodone/Acetaminophen) 1 Each Tablet 1 Ea PO Q6H PRN Triamterene-Hctz 37.5-25 mg Tb (Triamterene/Hydrochlorothiazid) 1 Each Tablet 1 Each PO DAILY Pantoprazole Sodium 40 Mg Tablet.dr 40 Mg PO HS Metoprolol Succinate 25 Mg Tab.er.24h 25 Mg PO HS Assessment/Pt Instructions Take medications as prescribed. Follow-up with your oncologist. You are being set up with oxygen to use with exertion. Return with worsening shortness of breath or if you feel like you are getting worse. Discharge Planning: <30 minutes discharge planning Discharge Instructions Discharge Diet: No Restrictions Activity as Tolerated: Yes Consultations Oncology, pulmonology Discharge Physical Examination Vital Signs Vital Signs Date Time Temp Pulse Resp B/P (MAP) Pulse Ox O2 Delivery O2 Flow Rate FiO2 01/18/21 11:21 36.4 56 18 127/78 (94) 92 Room Air 01/18/21 07:46 5.00 General Appearance: No Apparent Distress, Obese HEENT: PERRL/EOMI, Pharynx Normal Respiratory: Lungs Clear, Normal Breath Sounds, No Respiratory Distress Cardiovascular: Regular Rate, Rhythm, No Edema, No Murmur Gastrointestinal: Normal Bowel Sounds, Non Tender, Soft Extremity: Normal Inspection, Non Tender, No Pedal Edema Skin: Normal Color, Warm/Dry Neurologic/Psychiatric: Alert, Oriented x3, No Motor/Sensory Deficits, Normal Mood/Affect Allergies: Coded Allergies: No Known Drug Allergies (Unverified , 11/18/15) Copy Copies To 1: FLAVIO WILKES Lalito Discharge Summary Date of Admission Jan 13, 2021 at 20:43 Date of Discharge Discharge Date: Jan 18, 2021 Discharge Time: 11:05 Admission Diagnosis Acute respiratory failure due to COVID-19 Consults/Procedures Consulations Oncology, pulmonology Discharge Diagnosis Acute respiratory failure due to COVID-19 Febrile neutropenia Pancytopenia due to chemotherapy Stage 2 breast cancer (1) Acute respiratory failure due to COVID-19 Status: Acute (2) PNA (pneumonia) Status: Acute (3) Breast cancer, stage 2 Status: Acute Qualifiers: Qualified Codes: C50.911 - Malignant neoplasm of unspecified site of right female breast (4) Pancytopenia due to chemotherapy Status: Acute (5) Febrile neutropenia Status: Acute CHRISTEN MICHAELS MD Jan 18, 2021 12:21
== END 2021-01-18 14:30 | disposition home or self-care (01) | DRG 177 ==
LOC: EDUNIT# 18:39 → ER 18:43 → ICU 20:43 → 4TH 01-15 12:12
PROVIDERS: ADMIT Internal Medicine; ATTEND Internal Medicine
PROC: XW13325 Transfusion of Convalescent Plasma (Nonautologous) into Peripheral Vein, Percutaneous Approach, New Technology Group 5 (ICD-10-PCS; principal; 2021-01-14)
PROC: XW033E5 Introduction of Remdesivir Anti-infective into Peripheral Vein, Percutaneous Approach, New Technology Group 5 (ICD-10-PCS; 2021-01-18)
DX: U07.1 COVID-19 (principal); J12.82 Pneumonia due to coronavirus disease 2019; J96.01 Acute respiratory failure with hypoxia; D61.811 Other drug-induced pancytopenia; C50.911 Malignant neoplasm of unspecified site of right female breast; T45.1X5A Adverse effect of antineoplastic and immunosuppressive drugs, initial encounter; I10 Essential (primary) hypertension; F32.9 Major depressive disorder, single episode, unspecified; Z80.3 Family history of malignant neoplasm of breast; Z82.49 Family history of ischemic heart disease and other diseases of the circulatory system
CPT/HCPCS: 36415; 71045; 71275; 80048; 80053; 81000; 82805; 83605; 83735; 84100; 84145; 85007; 85025; 85027; 85379; 85610; 86900; 86901; 87040; 87081; 87635; 87804; 94760; 94761; 96374; 96375; 99291

== ENCOUNTER 2021-03-15 01:45 | Outpatient (RCR) | payer OTHER ==
[2021-01-09 15:55] LABS: BASOPHILS % (AUTO) 0 % (0-10); EOSINOPHILS % (AUTO) 0 % (0-10); HEMATOCRIT 33 % (35-52); HEMOGLOBIN 10.9 g/dL (11.5-16.0); LYMPHOCYTES # (AUTO) 0.4 10^3/uL (1.0-4.0); LYMPHOCYTES % (AUTO) 14 % (12-44); MEAN CORPUSCULAR HEMOGLOBIN 32 pg (25-34); MEAN CORPUSCULAR HGB CONC 33 g/dL (32-36); MEAN CORPUSCULAR VOLUME 96 fL (80-99); MEAN PLATELET VOLUME 10.5 fL (9.0-12.2); MONOCYTES # (AUTO) 0.4 10^3/uL (0.0-1.0); MONOCYTES % (AUTO) 16 % (0-12); NEUTROPHILS # (AUTO) 1.8 10^3/uL (1.8-7.8); NEUTROPHILS % (AUTO) 68 % (42-75); PLATELET COUNT 153 10^3/uL (130-400); WHITE BLOOD COUNT 2.7 10^3/uL (4.3-11.0)
[2021-01-09 16:19] LABS: ALBUMIN 3.4 GM/DL (3.2-4.5); BILIRUBIN,TOTAL 0.5 MG/DL (0.1-1.0); CALCIUM 7.9 MG/DL (8.5-10.1); CREATININE SERUM 1.12 MG/DL (0.60-1.30); POTASSIUM 3.3 MMOL/L (3.6-5.0); TOTAL PROTEIN 6.3 GM/DL (6.4-8.2)
[2021-01-29 13:22] LABS: BASOPHILS # (AUTO) 0.1 10^3/uL (0.0-0.1); BASOPHILS % (AUTO) 1 % (0-10); EOSINOPHILS # (AUTO) 0.1 10^3/uL (0.0-0.3); EOSINOPHILS % (AUTO) 1 % (0-10); HEMATOCRIT 38 % (35-52); LYMPHOCYTES # (AUTO) 0.5 10^3/uL (1.0-4.0); LYMPHOCYTES % (AUTO) 10 % (12-44); MEAN CORPUSCULAR HEMOGLOBIN 32 pg (25-34); MEAN CORPUSCULAR HGB CONC 32 g/dL (32-36); MEAN CORPUSCULAR VOLUME 100 fL (80-99); MEAN PLATELET VOLUME 9.7 fL (9.0-12.2); MONOCYTES # (AUTO) 0.9 10^3/uL (0.0-1.0); MONOCYTES % (AUTO) 16 % (0-12); NEUTROPHILS # (AUTO) 3.9 10^3/uL (1.8-7.8); NEUTROPHILS % (AUTO) 71 % (42-75); PLATELET COUNT 243 10^3/uL (130-400); WHITE BLOOD COUNT 5.5 10^3/uL (4.3-11.0)
[2021-01-29 13:42] LABS: BUN/CREATININE RATIO 11; CALCIUM 9.3 MG/DL (8.5-10.1); CARBON DIOXIDE 23 MMOL/L (21-32); CHLORIDE 103 MMOL/L (98-107); CREATININE SERUM 0.76 MG/DL (0.60-1.30); GFR ESTIMATED > 60; GLUCOSE 121 MG/DL (70-105); POTASSIUM 3.5 MMOL/L (3.6-5.0); SODIUM 137 MMOL/L (135-145)
[2021-03-05 13:18] LABS: BASOPHILS # (AUTO) 0.1 10^3/uL (0.0-0.1); BASOPHILS % (AUTO) 2 % (0-10); EOSINOPHILS # (AUTO) 0.2 10^3/uL (0.0-0.3); EOSINOPHILS % (AUTO) 5 % (0-10); HEMATOCRIT 47 % (35-52); HEMOGLOBIN 15.2 g/dL (11.5-16.0); LYMPHOCYTES # (AUTO) 0.8 10^3/uL (1.0-4.0); LYMPHOCYTES % (AUTO) 17 % (12-44); MEAN CORPUSCULAR HEMOGLOBIN 30 pg (25-34); MEAN CORPUSCULAR HGB CONC 32 g/dL (32-36); MEAN CORPUSCULAR VOLUME 94 fL (80-99); MEAN PLATELET VOLUME 10.5 fL (9.0-12.2); MONOCYTES # (AUTO) 0.9 10^3/uL (0.0-1.0); MONOCYTES % (AUTO) 19 % (0-12); NEUTROPHILS # (AUTO) 2.7 10^3/uL (1.8-7.8); NEUTROPHILS % (AUTO) 57 % (42-75); PLATELET COUNT 264 10^3/uL (130-400); WHITE BLOOD COUNT 4.8 10^3/uL (4.3-11.0)
[2021-03-05 13:32] LABS: ALBUMIN 4.5 GM/DL (3.2-4.5); BILIRUBIN,TOTAL 0.6 MG/DL (0.1-1.0); CALCIUM 10.1 MG/DL (8.5-10.1); CREATININE SERUM 1.06 MG/DL (0.60-1.30); POTASSIUM 3.2 MMOL/L (3.6-5.0); TOTAL PROTEIN 8.2 GM/DL (6.4-8.2)
[~2021-03-15 01:45] MED LIST changes: +ACHD5005 PO; +ALTEPLASE 2 MG (CATHFLO) CANCER CENTER IV ONE; +FAMOTIDINE 20MG/2ML IV (CANCER CTR) IV SCH; +GOSERELIN ACETATE 3.6 MG SC SCH; +IBUP-2473 PO; +LORazepam INJ 2 MG/ML VIAL CANCER CTR IV SCH; +NS IV 1000 ML (CANCER CTR) IV SCH; +ONDA8TAB15 PO; +PANT40TA52 PO; +PROM473S9 PO; +TRIA1TAB3 PO; +diphenhydrAMINE 25 MG TAB (BENADRYL) CANCER CENTER PO SCH; +diphenhydrAMINE 50 MG/ML INJ (CANCER CENTER) IV PRN
== END 2021-04-09 | disposition home or self-care (01) ==
LOC: ONC 01:45
PROVIDERS: ATTEND Internal Medicine Hematology & Oncology
DX: Z51.11 Encounter for antineoplastic chemotherapy (principal); C50.411 Malignant neoplasm of upper-outer quadrant of right female breast; I10 Essential (primary) hypertension; Z90.49 Acquired absence of other specified parts of digestive tract
CPT/HCPCS: 36591; 36593; 77290; 77295; 77300; 77307; 77334; 77336; 77417; 80048; 80053; 85025; 96375; 96402; 96413; 99204; 99214

== ENCOUNTER → 2021-04-16 | Outpatient (CLI) | payer OTHER ==
[~2021-04-16] MED LIST changes: -ALTEPLASE 2 MG (CATHFLO) CANCER CENTER IV ONE; -FAMOTIDINE 20MG/2ML IV (CANCER CTR) IV SCH; -GOSERELIN ACETATE 3.6 MG SC SCH; -LORazepam INJ 2 MG/ML VIAL CANCER CTR IV SCH; -NS IV 1000 ML (CANCER CTR) IV SCH; -diphenhydrAMINE 25 MG TAB (BENADRYL) CANCER CENTER PO SCH; -diphenhydrAMINE 50 MG/ML INJ (CANCER CENTER) IV PRN
--- NOTE | 2021-04-18 15:52 | Holter Monitor ---
HOLTER MONITOR DATE OF PROCEDURE: 04/16/2021-04/18/2021. INDICATION: Cardiac arrhythmia unspecified and palpitations. PROCEDURE: A 48-hour Holter monitor was obtained for a total of 48 hours. The study quality is adequate. RESULTS: 1. Baseline sinus rhythm with an average heart rate of 76 bpm, ranging from 45- 119 bpm. 2. There were rare (119), isolated premature supraventricular complexes and 5 supraventricular couplets. 3. There were frequent (10,622), isolated premature ventricular complexes representing 5% of the total recording time and 7 ventricular couplets.There was no high-grade ventricular ectopy. 4. There were no pauses exceeding 2 seconds in duration. 5. There was no evidence of atrial fibrillation. 6. No cardiac symptoms were reported during the test. IMPRESSION: 1. This is a 48-hour Holter monitor report. 2. Baseline sinus rhythm with an average heart rate of 76 bpm, ranging from 45- 119 bpm with rare supraventricular ectopy as isolated and couplet beats and korey quent ventricular ectopy as isolated and couplet beats with a total ventricular ectopy burden of 5%. 3. No cardiac symptoms were reported during the test. GUICHO ROBISON JR, MD Apr 18, 2021 15:52
== END ==
LOC: CARD 12:00
PROVIDERS: ATTEND Physician Assistant
DX: I49.9 Cardiac arrhythmia, unspecified (principal)
CPT/HCPCS: 93225; 93226

== ENCOUNTER → 2021-05-08 | Outpatient (CLI) | payer OTHER ==
[2021-05-08 12:09] LABS: ALBUMIN 3.6 GM/DL (3.2-4.5); BILIRUBIN,TOTAL 0.6 MG/DL (0.1-1.0); CALCIUM 9.4 MG/DL (8.5-10.1); CREATININE SERUM 0.82 MG/DL (0.60-1.30); POTASSIUM 3.9 MMOL/L (3.6-5.0); TOTAL PROTEIN 7.2 GM/DL (6.4-8.2)
== END ==
LOC: LAB 10:49
PROVIDERS: ATTEND Internal Medicine Cardiovascular Disease
DX: E78.2 Mixed hyperlipidemia (principal)
CPT/HCPCS: 36415; 80053; 80061

== ENCOUNTER → 2021-05-22 | Outpatient (CLI) | payer OTHER ==
--- NOTE | 2021-05-22 13:34 | Diagnostic Imaging Report ---
PROCEDURE: Pelvic comp/transvaginal sonogram. TECHNIQUE: Complete transabdominal and transvaginal pelvic ultrasound was performed. In addition, limited pelvic Doppler was performed. INDICATION: Cystocele and rectocele. The uterus is anteverted measuring 9.0 x 3.7 x 4.6 cm. Endometrium is 7 mm in thickness. No myometrial mass is detected. Right ovary measures 2.3 x 1.5 x 2.5 cm and left ovary measures 2.4 x 1.8 x 2.0 cm. Both ovaries demonstrate blood flow. No adnexal mass or free fluid is detected. IMPRESSION: Unremarkable transabdominal and transvaginal pelvic ultrasound. Dictated by: Dictated on workstation # [id number]
== END ==
LOC: RAD 11:56
PROVIDERS: ATTEND Obstetrics & Gynecology
DX: N81.2 Incomplete uterovaginal prolapse (principal)
CPT/HCPCS: 76830; 76856

== ENCOUNTER 2021-06-05 12:23 | Outpatient (RCR) | payer OTHER ==
[2021-04-11 11:24] LABS: BASOPHILS # (AUTO) 0.1 10^3/uL (0.0-0.1); BASOPHILS % (AUTO) 2 % (0-10); EOSINOPHILS # (AUTO) 0.2 10^3/uL (0.0-0.3); EOSINOPHILS % (AUTO) 4 % (0-10); HEMATOCRIT 44 % (35-52); HEMOGLOBIN 14.3 g/dL (11.5-16.0); LYMPHOCYTES # (AUTO) 1.2 10^3/uL (1.0-4.0); LYMPHOCYTES % (AUTO) 22 % (12-44); MEAN CORPUSCULAR HEMOGLOBIN 29 pg (25-34); MEAN CORPUSCULAR HGB CONC 33 g/dL (32-36); MEAN CORPUSCULAR VOLUME 89 fL (80-99); MEAN PLATELET VOLUME 10.4 fL (9.0-12.2); MONOCYTES % (AUTO) 17 % (0-12); NEUTROPHILS # (AUTO) 3.2 10^3/uL (1.8-7.8); NEUTROPHILS % (AUTO) 56 % (42-75); PLATELET COUNT 212 10^3/uL (130-400); WHITE BLOOD COUNT 5.6 10^3/uL (4.3-11.0)
[2021-04-11 11:45] LABS: ALANINE AMINOTRANSFERASE 38 U/L (0-55); ALBUMIN 3.9 GM/DL (3.2-4.5); ALKALINE PHOSPHATASE 43 U/L (40-136); BILIRUBIN,TOTAL 0.6 MG/DL (0.1-1.0); BUN/CREATININE RATIO 16; CALCIUM 9.5 MG/DL (8.5-10.1); CARBON DIOXIDE 27 MMOL/L (21-32); CHLORIDE 102 MMOL/L (98-107); CREATININE SERUM 0.85 MG/DL (0.60-1.30); GFR ESTIMATED > 60; GLUCOSE 99 MG/DL (70-105); POTASSIUM 3.8 MMOL/L (3.6-5.0); SODIUM 136 MMOL/L (135-145); TOTAL PROTEIN 7.2 GM/DL (6.4-8.2)
[2021-05-08 11:21] LABS: BASOPHILS # (AUTO) 0.1 10^3/uL (0.0-0.1); BASOPHILS % (AUTO) 1 % (0-10); EOSINOPHILS # (AUTO) 0.2 10^3/uL (0.0-0.3); EOSINOPHILS % (AUTO) 3 % (0-10); HEMATOCRIT 42 % (35-52); HEMOGLOBIN 13.8 g/dL (11.5-16.0); LYMPHOCYTES # (AUTO) 1.2 10^3/uL (1.0-4.0); LYMPHOCYTES % (AUTO) 20 % (12-44); MEAN CORPUSCULAR HEMOGLOBIN 29 pg (25-34); MEAN CORPUSCULAR HGB CONC 33 g/dL (32-36); MEAN CORPUSCULAR VOLUME 89 fL (80-99); MEAN PLATELET VOLUME 10.4 fL (9.0-12.2); MONOCYTES # (AUTO) 0.9 10^3/uL (0.0-1.0); MONOCYTES % (AUTO) 14 % (0-12); NEUTROPHILS # (AUTO) 3.7 10^3/uL (1.8-7.8); NEUTROPHILS % (AUTO) 61 % (42-75); PLATELET COUNT 195 10^3/uL (130-400)
[2021-05-08 12:15] LABS: CREATININE SERUM 0.82 MG/DL (0.60-1.30); POTASSIUM 3.9 MMOL/L (3.6-5.0)
[2021-05-08 12:16] LABS: ALBUMIN 3.6 GM/DL (3.2-4.5); BILIRUBIN,TOTAL 0.6 MG/DL (0.1-1.0); CALCIUM 9.4 MG/DL (8.5-10.1); TOTAL PROTEIN 7.2 GM/DL (6.4-8.2)
[~2021-06-05 12:23] MED LIST changes: +GOSERELIN ACETATE 3.6 MG SC SCH
[2021-06-05 13:14] LABS: BASOPHILS # (AUTO) 0.1 10^3/uL (0.0-0.1); BASOPHILS % (AUTO) 1 % (0-10); EOSINOPHILS # (AUTO) 0.2 10^3/uL (0.0-0.3); EOSINOPHILS % (AUTO) 3 % (0-10); HEMATOCRIT 43 % (35-52); LYMPHOCYTES # (AUTO) 1.3 10^3/uL (1.0-4.0); LYMPHOCYTES % (AUTO) 24 % (12-44); MEAN CORPUSCULAR HEMOGLOBIN 30 pg (25-34); MEAN CORPUSCULAR HGB CONC 33 g/dL (32-36); MEAN CORPUSCULAR VOLUME 93 fL (80-99); MEAN PLATELET VOLUME 10.4 fL (9.0-12.2); MONOCYTES % (AUTO) 18 % (0-12); NEUTROPHILS # (AUTO) 2.9 10^3/uL (1.8-7.8); NEUTROPHILS % (AUTO) 54 % (42-75); PLATELET COUNT 185 10^3/uL (130-400); WHITE BLOOD COUNT 5.4 10^3/uL (4.3-11.0)
[2021-06-05 13:44] LABS: ALBUMIN 3.8 GM/DL (3.2-4.5); BILIRUBIN,TOTAL 0.5 MG/DL (0.1-1.0); CALCIUM 9.5 MG/DL (8.5-10.1); CREATININE SERUM 0.97 MG/DL (0.60-1.30); POTASSIUM 3.4 MMOL/L (3.6-5.0); TOTAL PROTEIN 7.2 GM/DL (6.4-8.2)
[2021-06-13] MEDS ORDERED: ICOS0.5C PO (01:51)
[2021-06-13] MEDS ORDERED: TAMO20TA2 PO (01:51)
[2021-06-13] MEDS ORDERED: [UNRECOGNIZED DRUG - CODE] SQ (01:51)
[2021-06-13] MEDS ORDERED: ZINC50TA51 PO (01:51)
[2021-06-13] MEDS ORDERED: METO50TA7 PO (10:55)
[2021-06-13] MEDS ORDERED: ZINC50TA58 PO (10:55)
[2021-06-13] MEDS ORDERED: VITA400C60 PO (10:55)
[2021-06-13] MEDS ORDERED: CHOL20002 PO (10:55)
[2021-07-07] MEDS ORDERED: CETI1TAB86 PO (12:15)
[2021-07-07] MEDS ORDERED: OTC POTASSIUM PO (12:15)
== END 2021-07-10 | disposition home or self-care (01) ==
LOC: ONC 12:23
PROVIDERS: ATTEND Internal Medicine Hematology & Oncology
DX: Z51.11 Encounter for antineoplastic chemotherapy (principal); C50.411 Malignant neoplasm of upper-outer quadrant of right female breast; I10 Essential (primary) hypertension; Z90.49 Acquired absence of other specified parts of digestive tract
CPT/HCPCS: 80053; 85025; 96402; G0463; 36591; 99213

== ENCOUNTER → 2021-06-23 | Outpatient (CLI) | payer OTHER ==
[~2021-06-23] MED LIST changes: +CATHETER FLUSH 10 ML SYR IV PRN; +CHOL20002 PO; -GOSERELIN ACETATE 3.6 MG SC SCH; +ICOS0.5C PO; +METO50TA7 PO; +TAMO20TA2 PO; +VITA400C60 PO; +ZINC50TA51 PO; +ZINC50TA58 PO; +[UNRECOGNIZED DRUG - CODE] SQ
[2021-06-23 09:50] VITALS: BP 150/87
[2021-06-23 09:56] VITALS: BP 198/82
--- NOTE | 2021-06-23 12:24 | Cardiology Stress Test Report ---
Stress Test Report Date of Procedure/Referring: Date of Procedure: Jun 23, 2021 Kathrin Frost Admitting Physician Carlo Handley DO Indications: HTN Baseline Heart Rate: 72 Baseline Blood Pressure: Blood Pressure Systolic: 198 Blood Pressure Diastolic: 82 Vital Signs Date Time Temp Pulse Resp B/P (MAP) Pulse Ox O2 Delivery O2 Flow Rate FiO2 06/23/21 09:50 78 18 150/87 (108) 99 Room Air Baseline Vital Signs Vital Signs Date Time Temp Pulse Resp B/P (MAP) Pulse Ox O2 Delivery O2 Flow Rate FiO2 06/23/21 09:50 78 18 150/87 (108) 99 Room Air Baseline EKG: Baseline EKG: NSR Summary: After explaining the procedure and details to the patient, she signed the consent and was brought to the stress nuclear laboratory. Patient exercised on standard [place] protocol, EKG, heart rate and blood pressure were monitored continuously, resting and stress doses of radio tracer were injected, imaging was acquired and reviewed in the short axis, horizontal long axis and vertical long axis views Patient was able to exercise for a total of 4.35 minutes on Landon protocol, METs 6.4 Maximum heart rate 157 Maximum blood pressure 205/90 Stress EKG, Minimal nondiagnostic changes Recovery EKG, Return to baseline TID: 1.13 SSS: 1 SDS: 1 EF: 63 Conclusion: 1. Fair exercise tolerance for 4-minute 35 seconds on standard Landon protocol total of 6.4 METS achieving 92% of maximal expected heart rate 2. Baseline hypertension with severe hypertensive response to exercise peak blood pressure 205/90 return to baseline during recovery 3. Nondiagnostic EKG changes with exercise return to baseline during recovery 4. Breast attenuation with no significant ischemia or infarction on SPECT images 5. Normal left ventricular size, ejection fraction 63% POLI STOCK MD Jun 23, 2021 12:24
== END ==
LOC: CARD 08:45
PROVIDERS: ATTEND Physician Assistant
DX: I10 Essential (primary) hypertension (principal)
CPT/HCPCS: 78452; 93017; A9502

== ENCOUNTER 2021-07-07 05:33 | Outpatient (CLI) | payer OTHER ==
[~2021-07-07] VITALS: Ht 172.7 cm; Wt 108.1 kg
[~2021-07-07 05:33] MED LIST changes: -CATHETER FLUSH 10 ML SYR IV PRN
[2021-07-07] MEDS ORDERED: OTC POTASSIUM PO (12:15)
[2021-07-07] MEDS ORDERED: CETI1TAB86 PO (12:15)
== END 2021-07-07 12:22 | disposition home or self-care (01) ==
LOC: PREOP 05:33
PROVIDERS: ATTEND Obstetrics & Gynecology
DX: Z01.818 Encounter for other preprocedural examination (principal)

== ENCOUNTER 2021-07-14 06:22 | Day surgery (SDC) | payer OTHER ==
[2021-07-14] VITALS (12 sets, daily range): BP systolic 85–125; BP diastolic 39–91
[~2021-07-14] VITALS: Ht 172.7 cm; Wt 108.1 kg
[~2021-07-14 06:22] MED LIST changes: +CETI1TAB86 PO; +OTC POTASSIUM PO
[2021-07-14] MEDS ORDERED: metroNIDAZOLE 500MG/100ML IVPB 100 ML IV ONE (06:45)
[2021-07-14] MEDS ORDERED: ceFAZolin 2 GM IV Premixed 50 ML IV ONE (06:45)
[2021-07-14] MEDS ORDERED: fentaNYL INJ 100 MCG/2 ML AMP ONE ×2 (06:48→09:23)
[2021-07-14] MEDS ORDERED: MIDAZOLAM 2 MG/2 ML (VERSED) VIAL ONE (06:48)
[2021-07-14] MEDS ORDERED: BUPIVACAINE 0.25% 30 ML (SENSORCAINE) VIAL ONE (06:52)
[2021-07-14 07:08] LABS: BASOPHILS # (AUTO) 0.1 10^3/uL (0.0-0.1); BASOPHILS % (AUTO) 2 % (0-10); EOSINOPHILS # (AUTO) 0.2 10^3/uL (0.0-0.3); EOSINOPHILS % (AUTO) 4 % (0-10); HEMATOCRIT 39 % (35-52); HEMOGLOBIN 13.2 g/dL (11.5-16.0); LYMPHOCYTES # (AUTO) 0.9 10^3/uL (1.0-4.0); LYMPHOCYTES % (AUTO) 19 % (12-44); MEAN CORPUSCULAR HEMOGLOBIN 31 pg (25-34); MEAN CORPUSCULAR HGB CONC 34 g/dL (32-36); MEAN CORPUSCULAR VOLUME 90 fL (80-99); MEAN PLATELET VOLUME 10.5 fL (9.0-12.2); MONOCYTES # (AUTO) 0.6 10^3/uL (0.0-1.0); MONOCYTES % (AUTO) 13 % (0-12); NEUTROPHILS % (AUTO) 63 % (42-75); PLATELET COUNT 183 10^3/uL (130-400); WHITE BLOOD COUNT 4.7 10^3/uL (4.3-11.0)
[2021-07-14] MEDS: LACTATED RINGERS 1,000 ML IV SCH ×4 (07:09→17:53)
[2021-07-14] MEDS ORDERED: NS (IVPB) 100 ML ONE (07:12)
[2021-07-14] MEDS ORDERED: ESTROGENS CONJ. CREAM 30 GM (PREMARIN) TUBE ONE (07:12)
[2021-07-14] MEDS ORDERED: VASOPRESSIN INJECTION 20 UNIT/ML VIAL ONE (07:13)
--- NOTE | 2021-07-14 07:13 | Progress Note-Pre Operative ---
Pre-Operative Progress Note H&P Reviewed The H&P was reviewed, patient examined and no changes noted. Date Seen by Provider: Jul 14, 2021 Time Seen by Provider: 07:02 Date H&P Reviewed: Jul 14, 2021 Time H&P Reviewed: 07:00 Pre-Operative Diagnosis: POP, Hx of HR + Breast Ca DANNI CONLEY DO Jul 14, 2021 07:13
[2021-07-14] MEDS ORDERED: SEVOFLURANE (ULTANE) 15 ML INHAL SOLN ONE (08:00)
[2021-07-14] MEDS ORDERED: ROCURONIUM 10 MG/ML 5 ML SYRINGE IV ONE (08:00)
[2021-07-14] MEDS ORDERED: ONDANSETRON 4 MG/2 ML (SDV) Z0FRAN ONE (08:00)
[2021-07-14] MEDS ORDERED: LIDOCAINE PF 2% 5 ML (XYLOCAINE) VIAL ONE (08:00)
[2021-07-14] MEDS ORDERED: proPOfol 200 MG/20 ML (DIPRIVAN) VIAL IV ONE (08:00)
[2021-07-14] MEDS ORDERED: BACITRACIN OINTMENT 28 GM TUBE ONE (09:19)
[2021-07-14] MEDS ORDERED: KETOROLAC 30 MG/ML VIAL ONE (09:58)
[2021-07-14] MEDS ORDERED: LACTATED RINGERS 1,000 ML IV ONE (09:59)
[2021-07-14] MEDS ORDERED: ZOLPIDEM 5 MG (AMBIEN) TAB PO PRN (10:00)
[2021-07-14] MEDS ORDERED: CHLORASEPTIC LOZENGE MM PRN (10:00)
[2021-07-14] MEDS ORDERED: SIMETHICONE 80 MG (MYLICON) CHEW PO PRN (10:00)
[2021-07-14] MEDS ORDERED: ONDANSETRON 4 MG/2 ML (SDV) Z0FRAN IV PRN (10:00)
[2021-07-14] MEDS ORDERED: NALOXONE 0.4 MG/ML 1 ML (NARCAN) VIAL IV PRN (10:00)
[2021-07-14] MEDS ORDERED: DOCUSATE SODIUM 100 MG (COLACE) CAP PO PRN (10:00)
[2021-07-14] MEDS ORDERED: ANTACID SUSP 30 ML UDC (MYLANTA) PO PRN (10:00)
[2021-07-14] MEDS: KETOROLAC 30 MG/ML VIAL IVP PRN ×3 (10:03→22:38)
--- NOTE | 2021-07-14 10:03 | Discharge Inst-Women's Service ---
Discharge Inst-Women's Serv Depart Medication/Instructions New, Converted or Re-Newed RX: RX on Chart Problems Reviewed?: Yes Consults/Follow Up Additional Follow Up: Yes Orders/Referrals Dr. Reid or Rola in 7-10 days and in 8 weeks Activity Activity: Activity as Tolerated Driving Instructions: No Driving for 1 Week NO SMOKING: NO SMOKING Nothing Inside Vagina: No Douching, No [place], No Tampons Diet Discharge Diet: No Restrictions Symptoms to Report to : Bleeding Excessive, Pain Increased, Fever Over 101 Degrees F, Vaginal Bleeding Increase, Questions/Concerns For Any Problems or Questions: Contact Your Physician Skin/Wound Care Infection Signs and Symptoms: Increased Redness, Foul Odor of Wound, Increased Drainage, Skin Itchy or Has a Rash, Increased Swelling, Temperature Above 101 F Operative Area Clean and Dry: Keep Incision Clean/Dry Stitches/[place]/Dermabond: Dermabond, Care of Stitches Bathing Instructions: DANNI Lawrence DO Jul 14, 2021 10:02
[2021-07-14] MEDS ORDERED: IBUP-844 PO (10:05)
[2021-07-14] MEDS ORDERED: HYDR-34 PO (10:05)
[2021-07-14] MEDS ORDERED: SMT80CT PO (10:05)
[2021-07-14] MEDS ORDERED: DOCU100C37 PO (10:05)
[2021-07-14] MEDS ORDERED: HYDROmorphone 2 MG/ML VIAL (DILAUDID) IV SCH (11:15)
--- NOTE | 2021-07-14 14:57 | OPERATIVE REPORT ---
DATE OF SERVICE: PREOPERATIVE DIAGNOSES: 1. A 50-year-old female with pelvic organ prolapse. 2. Hormone receptor positive breast cancer. POSTOPERATIVE DIAGNOSES: 1. A 50-year-old female with pelvic organ prolapse. 2. Hormone receptor positive breast cancer. PROCEDURES: 1. Robotic-assisted total laparoscopic hysterectomy with bilateral salpingo-oophorectomy. 2. Anterior colporrhaphy. 3. Posterior colporrhaphy. SURGEON: Luis Reid DO ANESTHESIA: General endotracheal. ESTIMATED BLOOD LOSS: 200 mL. URINE OUTPUT: 50 mL clear at the end of procedure. FLUIDS: 1500 mL lactated Ringer's solution. FINDINGS: Grossly normal appearing uterus, bilateral fallopian tubes and ovaries, a grade III cystocele, grade II to III rectocele. SPECIMEN SENT: Uterus, bilateral fallopian tubes and ovaries. INDICATIONS FOR PROCEDURE: This 50-year-old female is a patient who had sought my care for concerns with ongoing hormone production from her ovaries with hormone positive breast cancer. The patient had been on tamoxifen for some time now. She had underlying risk factor for endometrial cancer with tamoxifen use. Upon further evaluation, the patient was also found to have some significant degree of prolapse as well as a very significant cystocele. Upon further questioning the patient, she was having issues with urinary retention for years. However, she did not feel like this was a big deal to her at that time until it was brought up. I discussed with the patient hysterectomy as well as anterior and posterior colporrhaphy. Risks of these procedures were discussed with the patient in detail including risk of bleeding, infection, damaging surrounding structures including, but not limited to bowel, bladder, ureter, kidneys, possible need for operation, postoperative complications that may occur, risk from anesthesia and even . After everything was discussed with the patient in detail, consent was obtained in the preoperative area, the patient was taken to the operating room. OPERATIVE REPORT IN DETAIL: Once in the operating room, general anesthesia was found to be adequate. She was placed in dorsal lithotomy position, prepped and draped in normal sterile fashion. Timeout was performed. Dexter catheter was placed using sterile technique. A weighted speculum inserted to the patient's vagina. Right angle retractor was used to visualize the cervix and an 0 Vicryl suture was placed anterior lip of the cervix once it was visualized. The suture was then used as my retraction point on the cervix. The uterine cavity was then sounded and found to be 8 cm. I placed a Jailene uterine manipulator with an 8 cm manipulator tip and 4 cm colpotomy ring into the cervix deploying the balloon inside of the uterus and advancing the colpotomy ring around the vaginal fornix. I then removed all the other instruments from the patient's vagina, performed change of gloves obtained my attention to the abdomen, where subcostally at the midclavicular line, I placed a Veress needle until intraperitoneal placement was confirmed using a saline drop test. An opening pressure of 8 mmHg was noted, proceeded to maximum pressure of 15 mmHg, at which point, I made a supraumbilical incision at 8 mm and directed a da Kan camera trocar through the incision until intraperitoneal placement was confirmed using the da Kan laparoscope. No evidence of damage from entry is noted. No evidence of damage upon the entry site of the Veress needle was noted in the left upper quadrant. I then had the patient placed in steep Trendelenburg and made visualize all my anatomy was defined in my findings above. I placed two lateral trocars approximately 12 cm lateral to my supraumbilical trocar. These were both made by infiltrating the skin using 0.25% Marcaine with making 8 mm incision with a knife and directing the trocar under direct visualization of laparoscope. Once these were in place and bringing the da Kan robot and docked in appropriate fashion placing the synchronous device in the left hand and monopolar suri in the right hand, I performed the following dissection bilaterally starting at the infundibulopelvic ligament. I sealed and transected the round ligament using the SynchroSeal device. I then opened up the broad ligament to the anterior and posterior leaflets. Anterior leaflet dissection was taken around the anterior vaginal fornix and posterior leaflets was taken around the posterior vaginal fornix, which allows me to skeletonize the uterine vessels laterally, which I sealed and transected using the SynchroSeal. I then created a colpotomy at 12 o'clock position using monopolar suri and took this circumferentially around the vaginal fornix amputating the cervix away from the vagina. The entire specimen was then removed through the vagina. I then closed the lateral vaginal apices of the vaginal cuff using 2-0 Vicryl suture in a [id number] fashion. I then closed the remainder of the vaginal cuff using 2-0 V-Loc in a running fashion, after which no active bleeding noted from any of my dissection planes. I then undocked the da Kan robot and proceeded with remainder of the case laparoscopically. I copiously irrigated the pelvis using normal saline. There was no active bleeding noted from any of my dissection planes. I placed Surgiflo hemostatic agent over all my planes of dissection. I had the patient taken out of steep Trendelenburg where I removed the lateral trocars under direct visualization of the laparoscope and infraumbilical trocars left in place to release insufflation and to introduce 10 mL of 0.25% Marcaine into the peritoneal cavity for postoperative pain management. I then removed this trocar as well. The skin reapproximated using 4-0 Monocryl in interrupted subcuticular stitches. Dermabond was applied to incision and Band-Aids were placed over the incisions as well. I then took my attention back down to the vagina where I began by repairing the cystocele. I infiltrated the submucosa of the cystocele margins using vasopressin, a concentration of 20 units in 100 mL of normal saline. Once all the margins are blanched and infiltrated, I made an incision at the base of the bladder through the mucosa until the submucosa was encountered. Then, I undermined down the midline of the cystocele defect using Metzenbaum scissors. I then took my incision down the midline using my undermining as my guidance for dissection. I then grasped the lateral aspects of the mucosa using T clamps, tent them upward and dissected the underlying vesicovaginal fascia off the underlying mucosa. I do this on both sides. I then proceeded with reapproximating the vesicovaginal fascia, plicating the cystocele using 0 Vicryl suture in interrupted fashion. Once this was done and the entire cystocele was reduced, I trimmed the excess vaginal mucosa. I then reapproximated the mucosa using 3-0 Vicryl suture in a running locked fashion, after which there was no active bleeding noted from these dissection planes. I then took the weighted speculum into the patient's vagina and I addressed the rectocele. I, in similar fashion, infiltrated all the margins of the rectocele using the same vasopressin concentration that I used for the cystocele. I then make an incision in a triangular shape on the perineal body and take off the cutaneous tissue using a knife. I then undermined down the midline of the rectocele using Metzenbaum scissors until the proximal margin of the rectocele is met. I then make that incision down the midline through the mucosa. I then dissected the underlying rectovaginal fascia and trimmed the excess vaginal mucosa. I then reapproximated the entire mucosa and rectovaginal fascia using 2-0 Vicryl in a running locking fashion until I encountered the mucocutaneous junction, at which point I performed a perineoplasty by rebuilding the perineal body using 0 Vicryl suture in a crown stitch reapproximating and reinforcing the bulbocavernosus muscles. I then reapproximated the submucosa and the skin of the perineum using 2-0 Vicryl suture that was used from above. The suture was then buried beneath the skin, the vagina was then packed after no active bleeding was noted from either one of my dissection planes. The packing used was bacitracin ointment soaked due to Premarin being contraindicated with her history of hormone positive breast cancer, packing was left in place. Dexter catheter was left in place. The patient tolerated the procedure well and sent to recovery area in stable condition. Lap and sponge counts were correct at the end of the procedure. Instrument counts correct is correct. A 500 mg of Flagyl and 2 grams of Ancef were given preoperatively for infection prophylaxis. Job ID: [id number] DocumentID: [id number] Dictated Date: 07/14/2021 10:30:14 Production Administrative Assistant Date: 07/14/2021 14:56:47 Dictated By: DO SHYANNE PETTY
[2021-07-14] MEDS: HYDROcodone/APAP 7.5 MG/325 MG (LORTAB, LORCET PLUS) TABLET PO PRN ×2 (16:26→20:36)
[2021-07-15] MEDS: LACTATED RINGERS 1,000 ML IV SCH (01:51)
[2021-07-15] MEDS: HYDROcodone/APAP 7.5 MG/325 MG (LORTAB, LORCET PLUS) TABLET PO PRN ×2 (02:53→09:34)
[2021-07-15 03:12] VITALS: BP 96/53
[2021-07-15] MEDS: KETOROLAC 30 MG/ML VIAL IVP PRN (04:57)
[2021-07-15 09:00] VITALS: BP 110/54
[2021-07-15] MEDS ORDERED: IBUPROFEN 600 MG (MOTRIN) TAB PO SCH (10:00)
--- NOTE | 2021-07-15 13:58 | Anesthesia-General Post-Op ---
General Patient Condition Mental Status/LOC: Same as Preop Cardiovascular: Satisfactory Nausea/Vomiting: Absent Respiratory: Satisfactory Pain: Controlled Complications: Absent Post Op Complications Complications None Follow Up Care/Instructions Patient Instructions None needed. Anesthesia/Patient Condition Patient Condition Patient is doing well, no complaints, stable vital signs, no apparent adverse anesthesia problems. No complications reported per nursing. CHRISTINE DOWNING CRNA Jul 15, 2021 13:58
== END 2021-07-15 11:40 | disposition home or self-care (01) ==
LOC: SDC 06:22 → WS 11:15 → SDC 07-15 11:40
PROVIDERS: ATTEND Obstetrics & Gynecology
DX: C50.919 Malignant neoplasm of unspecified site of unspecified female breast (principal); N81.89 Other female genital prolapse; N81.10 Cystocele, unspecified; N81.6 Rectocele; N72 Inflammatory disease of cervix uteri; N88.8 Other specified noninflammatory disorders of cervix uteri; N80.0 Endometriosis of uterus; I10 Essential (primary) hypertension; G62.9 Polyneuropathy, unspecified; Z79.899 Other long term (current) drug therapy; Z90.49 Acquired absence of other specified parts of digestive tract; Z85.3 Personal history of malignant neoplasm of breast; Z83.3 Family history of diabetes mellitus
CPT/HCPCS: 36415; 84703; 85025; 86850; 86900; 86901; 87081; 88307; 94664

== ENCOUNTER → 2021-07-29 | Outpatient (CLI) | payer OTHER ==
[~2021-07-29] MED LIST changes: +DOCU100C37 PO; +HYDR-34 PO; +IBUP-844 PO; +SMT80CT PO
[2021-07-29 09:16] LABS: BASOPHILS # (AUTO) 0.1 10^3/uL (0.0-0.1); BASOPHILS % (AUTO) 2 % (0-10); EOSINOPHILS % (AUTO) 13 % (0-10); HEMATOCRIT 44 % (35-52); HEMOGLOBIN 14.3 g/dL (11.5-16.0); LYMPHOCYTES # (AUTO) 2.8 10^3/uL (1.0-4.0); LYMPHOCYTES % (AUTO) 35 % (12-44); MEAN CORPUSCULAR HEMOGLOBIN 30 pg (25-34); MEAN CORPUSCULAR HGB CONC 33 g/dL (32-36); MEAN CORPUSCULAR VOLUME 90 fL (80-99); MEAN PLATELET VOLUME 10.7 fL (9.0-12.2); MONOCYTES # (AUTO) 0.7 10^3/uL (0.0-1.0); MONOCYTES % (AUTO) 9 % (0-12); NEUTROPHILS # (AUTO) 3.4 10^3/uL (1.8-7.8); NEUTROPHILS % (AUTO) 42 % (42-75); PLATELET COUNT 230 10^3/uL (130-400)
[2021-07-29 09:39] LABS: BASOPHILS % (MANUAL) 1 %; EOSINOPHILS % (MANUAL) 11 %; LYMPHOCYTES % (MANUAL) 34 %; MONOCYTES % (MANUAL) 11 %; NEUTROPHILS % (MANUAL) 43 %; RBC MORPH NORMAL
== END ==
LOC: LABNPT 09:10
PROVIDERS: ATTEND Obstetrics & Gynecology
DX: G89.18 Other acute postprocedural pain (principal)
CPT/HCPCS: 85007; 85027

== ENCOUNTER 2021-08-05 10:04 | Outpatient (RCR) | payer OTHER ==
[~2021-08-05 10:04] MED LIST changes: +ONDA-106 PO; -ONDA8TAB15 PO
[2021-08-05 10:15] LABS: BASOPHILS # (AUTO) 0.1 10^3/uL (0.0-0.1); BASOPHILS % (AUTO) 2 % (0-10); EOSINOPHILS # (AUTO) 0.9 10^3/uL (0.0-0.3); EOSINOPHILS % (AUTO) 13 % (0-10); HEMATOCRIT 44 % (35-52); HEMOGLOBIN 14.8 g/dL (11.5-16.0); LYMPHOCYTES # (AUTO) 2.5 10^3/uL (1.0-4.0); LYMPHOCYTES % (AUTO) 36 % (12-44); MEAN CORPUSCULAR HEMOGLOBIN 31 pg (25-34); MEAN CORPUSCULAR HGB CONC 34 g/dL (32-36); MEAN CORPUSCULAR VOLUME 91 fL (80-99); MEAN PLATELET VOLUME 10.4 fL (9.0-12.2); MONOCYTES % (AUTO) 13 % (0-12); NEUTROPHILS # (AUTO) 2.5 10^3/uL (1.8-7.8); NEUTROPHILS % (AUTO) 36 % (42-75); PLATELET COUNT 258 10^3/uL (130-400); WHITE BLOOD COUNT 7.1 10^3/uL (4.3-11.0)
[2021-08-05 10:43] LABS: ALBUMIN 3.9 GM/DL (3.2-4.5); BILIRUBIN,TOTAL 0.4 MG/DL (0.1-1.0); CALCIUM 9.3 MG/DL (8.5-10.1); CREATININE SERUM 0.97 MG/DL (0.60-1.30); POTASSIUM 3.9 MMOL/L (3.6-5.0); TOTAL PROTEIN 7.2 GM/DL (6.4-8.2)
[2021-08-21] MEDS ORDERED: FENO134C PO (12:08)
[2021-08-21] MEDS ORDERED: ICOS0.5C PO (12:08)
== END 2021-10-03 | disposition home or self-care (01) ==
LOC: ONC 10:04
PROVIDERS: ATTEND Internal Medicine Hematology & Oncology
DX: C50.411 Malignant neoplasm of upper-outer quadrant of right female breast (principal); I10 Essential (primary) hypertension; Z90.49 Acquired absence of other specified parts of digestive tract
CPT/HCPCS: 80053; 85025; G0463; 99213

== ENCOUNTER → 2021-08-07 | Outpatient (CLI) | payer OTHER ==
[~2021-08-07] MED LIST changes: -ONDA-106 PO; +ONDA8TAB15 PO
--- NOTE | 2021-08-07 13:30 | Diagnostic Imaging Report ---
INDICATION: Right breast carcinoma, status post lumpectomy. Correlation is made to prior mammogram 04/01/2020 and 11/18/2015. 2-D and 3-D bilateral diagnostic mammography was performed with CAD. Both breasts are heterogeneously dense, limiting the sensitivity of mammography. Post lumpectomy changes in the upper outer right breast identified. No recurrent mass is detected. There is an area of density in the medial right breast posterior depth which appears to resolve on the exaggerated CC and ML views and likely represent superimposed tissue. No suspicious microcalcifications are seen. Chest wall port hub is located in the left axilla. IMPRESSION: Post-therapeutic changes. No mammographic features suspicious for malignancy are identified. BI-RADS Category 2 ACR BI-RADS Category 2: Benign findings. Result letter will be mailed to the patient. Note: At least 10% of breast cancer is not imaged by mammography. Dictated by: Dictated on workstation # [id number]
== END ==
LOC: RAD 12:32
PROVIDERS: ATTEND Internal Medicine Hematology & Oncology
DX: C50.411 Malignant neoplasm of upper-outer quadrant of right female breast (principal); Z90.11 Acquired absence of right breast and nipple; Z78.0 Asymptomatic menopausal state; Z79.810 Long term (current) use of selective estrogen receptor modulators (SERMs)
CPT/HCPCS: 77066; G0279; 77062

== ENCOUNTER → 2021-08-19 | Outpatient (CLI) | payer OTHER ==
[~2021-08-19] MED LIST changes: +FENO134C PO
--- NOTE | 2021-08-19 12:12 | Diagnostic Imaging Report ---
INDICATION: Z78.0. COMPARISON: None available. FINDINGS: AP Spine L1-L4: [BMD (g/cm2): 1.205] [T-Score: 0.0] [Z-Score: -0.7] [BMD Previous: na] [BMD % Change: na] LT Hip Neck: [BMD (g/cm2): 1.015] [T-Score: -0.2] [Z-Score: -0.1] LT Hip Total: [BMD (g/cm2):1.171] [T-Score:1.3] [Z-Score: 1.0] [BMD Previous: na] [BMD % Change: na] RT Hip Neck: [BMD (g/cm2):1.053] [T-Score:0.1] [Z-Score:0.2] RT Hip Total: [BMD (g/cm2):1.158] [T-score:1.2] [Z-Score:0.9] [BMD Previous:na] [BMD % Change:na] *Indicates significant change from prior examination based on 95% confidence level. World Health Organization criteria for BMD interpretation classify patients as Normal (T-score at or above -1.0), Osteopenic (T-score between -1.0 and -2.5) or Osteoporotic (T-score at or below -2.5). LIMITATIONS AND MODIFICATION: None. IMPRESSION: 1. Normal bone mineral density. 2. Baseline examination. 3. See below National Osteoporosis Foundation guidelines on when to potentially initiate pharmacologic therapy. Based on the National Osteoporosis Foundation Guidelines, pharmacologic treatment should be initiated in any of the following, unless clinical conditions suggest otherwise: * Any patient with prior fragility fracture of the hip or vertebrae. A spine fracture indicates 5X risk for subsequent spine fracture and 2X risk for subsequent hip fracture. * Osteoporosis (T-score <-2.5). * Postmenopausal women and men age 50 and older with low bone mass/osteopenia (T-score between -1.0 and -2.5) by DXA and 10-year major osteoporotic fracture greater than 20% or a 10-year probability of hip fracture greater than 3%. These fracture risks are supplied above in the FRAX score, if applicable. * Clinician judgement and/or patient preferences may indicate treatment for people with 10-year fracture probabilities above or below these levels. Dictated by: Dictated on workstation # [id number]
== END ==
LOC: RAD 11:04
PROVIDERS: ATTEND Internal Medicine Hematology & Oncology
DX: C50.411 Malignant neoplasm of upper-outer quadrant of right female breast (principal); Z78.0 Asymptomatic menopausal state; Z79.810 Long term (current) use of selective estrogen receptor modulators (SERMs)
CPT/HCPCS: 77080

== ENCOUNTER 2021-08-21 11:35 | Outpatient (CLI) | payer OTHER ==
[~2021-08-21] VITALS: Ht 172.7 cm; Wt 104.5 kg
[~2021-08-21 11:35] MED LIST changes: -FENO134C PO
[2021-08-21] MEDS ORDERED: ICOS0.5C PO (12:08)
[2021-08-21] MEDS ORDERED: FENO134C PO (12:08)
== END 2021-08-21 12:13 | disposition home or self-care (01) ==
LOC: PREOP 11:35
PROVIDERS: ATTEND Surgery
DX: Z01.818 Encounter for other preprocedural examination (principal)

== ENCOUNTER 2021-08-27 10:29 | Day surgery (SDC) | payer OTHER ==
[~2021-08-27] VITALS: Ht 172 cm; Wt 104.5 kg
[2021-08-27] VITALS (8 sets, daily range): BP systolic 113–151; BP diastolic 59–86
[~2021-08-27 10:29] MED LIST changes: +FENO134C PO; +ONDA-106 PO; -ONDA8TAB15 PO
[2021-08-27] MEDS ORDERED: LACTATED RINGERS 1,000 ML IV PRN (10:45)
[2021-08-27] MEDS ORDERED: ceFAZolin 2 GM IV Premixed 50 ML IV ONE (10:45)
--- NOTE | 2021-08-27 12:10 | Progress Note-Pre Operative ---
Pre-Operative Progress Note H&P Reviewed The H&P was reviewed, patient examined and no changes noted. Date Seen by Provider: Aug 27, 2021 Time Seen by Provider: 12:09 Date H&P Reviewed: Aug 27, 2021 Time H&P Reviewed: 12:09 Pre-Operative Diagnosis: hx breast cancer HILTON MARTINEZ DO Aug 27, 2021 12:09
--- NOTE | 2021-08-27 12:52 | Discharge Inst-Simple/Standard ---
Discharge Inst-Standard Patient Instructions/Follow Up Plan of Care/Instructions/FU: 2 weeks Ranjan Activity as Tolerated: No Discharge Diet: Regular Diet Other Inst to Patient Follow up Appt: Make appointment for 2 week. Instructions: No strenuous activity. May shower in 24 hours, no tub bath or soaking. Use incentive spirometer at home as directed. No Smoking Skin/Wound Care: You have special glue over your incision that will fall off on it's own. Symptoms to Report: Appetite Changes, Extremity Discoloration, Numbness/Tingling, Swelling Increased, Bleeding Excessive, Eyesight Changes, Pain Increased, Urine Color Change, Constipation(Persistent), Fever over 101 degree F, Pain/Pressure in ches t, Urinating Difficulty, Cough Up/Vomit Blood, Heart Beat Irreg/Pounding, Pain/Pressure in jaw, Vaginal Bleeding Increase, Cramps in feet or legs, Lightheadedness, Pain/Pressure in shoulder, Diarrhea(Persistent), Memory Changes Suddenly, Questions/Concerns, Weight gain consecutive days, Dizziness/Fainting, Nausea/Vomiting, Shortness of Breath, Weight gain over 2 pounds If questions or concerns contact your physician Or seek help at emergency department. HILTON MARTINEZ DO Aug 27, 2021 12:52
--- NOTE | 2021-08-27 12:53 | Progress Note-Post Operative ---
Post-Operative Progess Note Surgeon (s)/Associate Consulting Engineer (s) Surgeon HILTON MARTINEZ DO Associate Consulting Engineer: na Pre-Operative Diagnosis hx breast cancer Post-Operative Diagnosis same Procedure & Operative Findings Date of Procedure 08/27/21 Procedure Performed/Findings PROCEDURE: Removal of port, COMPLICATIONS: None. INDICATIONS: The patient is a 50 year-old female who had a port previously placed. Patient is ok to have port removed. The patient was explained risk and benefits of the procedure and wished to proceed with procedure. Consent was signed on the chart. PROCEDURE: The patient was taken to the operating suite and was prepped and draped in sterile fashion. A surgical pause was performed. Local anesthetic was infiltrated to the area around the port. A number 15 blade scalpel was used to make an incision. Cautery was used to dissect down to the port which was then grasped and then dissected around. The catheter was removed in its entirety. The port was then able to be dissected out of the pocket and elevated. The wound was then irrigated with copious amounts of irrigation. Hemostasis had been achieved. The subcutaneous tissues were then reapproximated using 3-0 Vicryl. Skin was then closed using 4-0 Vicryl in a running fashion. The area was then washed and dried and Skin Affix placed over the incision. The patient tolerated the procedure well without complication and was taken to recovery room in stable condition. Anesthesia Type mac c local Estimated Blood Loss Estimated blood loss (mL): minimal Specimens/Packing Specimens Removed HILTON Buitrago DO Aug 27, 2021 12:53
[2021-08-27] MEDS ORDERED: MEPERIDINE (DEMEROL) INJ 50 MG/ML IVP ONE (13:00)
[2021-08-27] MEDS ORDERED: morphine INJ 10 MG/ML 1ML (SYR OR VIAL) IVP ONE (13:00)
[2021-08-27] MEDS ORDERED: ONDANSETRON 4 MG/2 ML (SDV) Z0FRAN IVP PRN (13:00)
--- NOTE | 2021-08-27 13:01 | Anesthesia-General Post-Op ---
MAC Patient Condition Mental Status/LOC: Same as Preop Cardiovascular: Satisfactory Nausea/Vomiting: Absent Respiratory: Satisfactory Pain: Controlled Complications: Absent Post Op Complications Complications None Follow Up Care/Instructions Patient Instructions None needed. Anesthesiology Discharge Order Discharge Order Patient is doing well, no complaints, stable vital signs, no apparent adverse anesthesia problems. No complications reported per nursing. ANNABELLE CASILLAS CRNA Aug 27, 2021 13:00
== END 2021-08-27 14:05 | disposition home or self-care (01) ==
LOC: SDC 10:29
PROVIDERS: ATTEND Surgery
DX: I87.2 Venous insufficiency (chronic) (peripheral) (principal); E78.5 Hyperlipidemia, unspecified; E66.9 Obesity, unspecified; F32.A Depression, unspecified; Z85.3 Personal history of malignant neoplasm of breast; Z79.891 Long term (current) use of opiate analgesic; Z79.899 Other long term (current) drug therapy; Z83.3 Family history of diabetes mellitus; Z82.49 Family history of ischemic heart disease and other diseases of the circulatory system
CPT/HCPCS: 87081